=== PATIENT | male | born 1950 | race Caucasian/White ===

== ENCOUNTER 2018-03-12 09:54 | Emergency (ER) | payer OTHER ==
--- OUTSIDE RECORDS SUMMARY | 2018-03-12 09:57 | XMS REPORT | Clinical Summary ---
:1950 Author Organization [facility] Address [address] [place] [address] Care Team Providers Name Role Phone Wilbur Wilson MD Primary Care Provider Allergies No Known Allergies Medications Medication Sig Dispensed Refills Start Date End Date Status aspirin (ECOTRIN) 81 Take 81 mg by 0 Active MG enteric coated mouth daily. tablet dexlansoprazole Take 60 mg by 0 Active (DEXILANT) 60 mg mouth daily. capsule coenzyme [id number] Take by mouth. 0 Active E (CO Q-10, WITH VIT E,) 100-5 mg-unit capsule ezetimibe (ZETIA) 10 Take 10 mg by 0 Active mg tablet mouth daily. flaxseed oil 1,000 mg Take 1,400 mg 0 Active capsule by mouth. calcium Take 1 tablet 0 Active citrate-vitamin D3 by mouth 2 (CITRACAL+D) 315-200 (two) times a mg-unit per tablet day. glucosamine-chondroit Take by mouth. 0 Active -vit C-Mn (GLUCOSAMINE 1500 COMPLEX) 500-400 mg capsule tadalafil (CIALIS) 5 Take 5 mg by 0 Active MG tablet mouth daily as needed for erectile dysfunction. magnesium hydroxide Take by mouth 0 Active 400 mg/5 mL once. suspension cyanocobalamin 1000 Take 1,000 mcg 0 Active MCG tablet by mouth daily. ferrous Take 1 tablet 0 Active fumarate-vitamin C by mouth (TIO-SEQUELS, daily. IRON-VIT C,) 200 mg (65 mg iron)-25 mg tablet extended release ER tablet cholecalciferol, Take 2,000 0 Active vitamin D3, (VITAMIN Units by mouth D3) 2,000 unit daily. capsule capsule rosuvastatin Take 10 mg by 0 Active (CRESTOR) 10 MG mouth. Every tablet other day gabapentin Take 300 mg by 0 Active (NEURONTIN) 100 mg mouth nightly. capsule clopidogrel (PLAVIX) TAKE 1 TABLET 90 tablet 3 10/19/2017 Active 75 mg tablet BY MOUTH EVERY DAY omega-3 acid ethyl Take 1 g by 0 Active esters (LOVAZA) 1 mouth 2 (two) gram capsule times a day. cetirizine (ZyrTEC) 5 Take 2.5 mg by 0 Active MG tablet mouth daily. clopidogrel (PLAVIX) Take 1 tablet 90 tablet 3 10/24/2016 Discontinued 75 mg tablet (75 mg total) 8 by mouth daily. fenofibric acid Take 135 mg by 0 Discontinued (FIBRICOR) 105 mg mouth daily. 8 tablet icosapent ethyl Take by mouth. 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 Hyperlipidemia 01/19/2017 Stented coronary artery 01/19/2017 Chest pain 01/19/2017 Coronary artery disease involving [place] heart with angina pectoris 01/19/2017 Carotid bruit 01/19/2017 Abnormal EKG 01/19/2017 Encounters Date Type Specialty Care Team Description 01/01/2018 Office Visit Cardiology Vitaliy Cristobal MD Coronary artery disease involving [place] coronary artery of [place] heart without angina pectoris (Primary Dx); Pure hypercholesterolemia; Stented coronary artery 10/16/2017 Refill Cardiology Vitaliy Cristobal MD Med Refill 06/29/2017 Office Visit Cardiology Vitaliy Cristobal MD Coronary artery disease involving [place] coronary artery of [place] heart without angina pectoris (Primary Dx); Stented coronary artery after 03/11/2017 Social History Tobacco Use Types Packs/Day Years Used Date Never Smoker Smokeless Tobacco: Never Used Alcohol Use Drinks/Week oz/Week Comments No Sex Assigned at Date Recorded Not on file Job Start Date Occupation Industry Not on file Not on file Not on file Travel History Travel Start Travel End No recent travel history available. Last Filed Vital Signs Vital Sign Reading Time Taken Blood Pressure 125/74 01/01/2018 11:02 AM CDT Pulse 56 01/01/2018 11:02 AM CDT Temperature - - Respiratory Rate - - Oxygen Saturation - - Inhaled Oxygen Concentration - - Weight 83.9 kg (185 lb) 01/01/2018 11:02 AM CDT Height 175.3 cm (5' 9") 01/01/2018 11:02 AM CDT Body Mass Index 27.32 01/01/2018 11:02 AM CDT Plan of Treatment Health Maintenance Due Date Last Done Comments COLON CANCER SCREENING 2001 SHINGRIX VACCINE (1 of 2) 2001 ZOSTER VACCINE 2011 PNEUMOCOCCAL POLYSACCHARIDE VACCINE AGE 65 AND OVER 2016 PNEUMOCOCCAL-13 2016 INFLUENZA VACCINE 11/25/2017 Procedures Procedure Name Priority Date/Time Associated Diagnosis Comments ECG 12-LEAD Routine 01/01/2018 11:04 AM Coronary artery Results for this CDT disease involving procedure are in the [place] coronary results section. artery of [place] heart without angina pectoris ECG 12-LEAD Routine 06/29/2017 4:29 PM Coronary artery Results for this KILN TENDER disease involving procedure are in the [place] coronary results section. artery of [place] heart without angina pectoris after 03/11/2017 Results ECG 12 lead (01/01/2018 11:04 AM CDT)Only the most recent of2 resultswithin the time period is included. Ventricular rate 62 [facility] Atrial rate 62 [facility] ND interval 190 [facility] QRSD interval 146 [facility] QT interval 436 [facility] QTC interval 442 [facility] P axis 1 67 [facility] QRS axis 1 8 [facility] T wave axis 47 [facility] EKG impression Normal sinus rhythm-Possible Left atrial enlargement-Right bundle branch block-Abnormal ECG-In automated comparison with ECG of 2017 16:29,-Left anterior fascicular block is no longer present-Haritha [facility] ctronically Signed By Ainsley Hoffman ([id number]) on 01/01/2018 6:36:53 PM Performing Organization Address City/State/Zipcode Phone Number [facility] [address] [place] [address] after 03/11/2017 Insurance Payer Benefit Plan / Group Subscriber ID Type Phone Address HUMANA MEDICARE HUMANA MEDICARE PPO/PFFS/ERS [facility] xxxxxxxxx PPO ([place]) [place] [id number] Advance Directives Patient has advance care planning documents on file. For more information, please contact:Cuong [id number] [place] [address]
[2018-03-12] MEDS ORDERED: ASPIRIN 81 MG CHEWABLE TABLET ONE (10:22)
[2018-03-12] MEDS ORDERED: NITROGLYCERIN 0.4 MG/TAB SL ONE (10:22)
[2018-03-12 10:27] LABS: Absolute Lymphocytes (CBC) 1.9 K/uL (0.7-4.9); Absolute Monocytes 0.9 K/uL (0.1-1.3); Basophils % 0.1 % (0-1.3); Hematocrit 43.5 % (39.6-49.0); Lymphocytes % 10.5 % (15.3-44.8); MCH 32.7 pg (27.0-35.0); MPV 8.4 fL (7.6-11.3); Monocytes % 4.9 % (3.3-12.3); RBC Red Blood Cell Count 4.63 M/uL (4.33-5.43)
[2018-03-12 10:33] LABS: Protime INR 1.06
[2018-03-12] MEDS ORDERED: MORPHINE 4 MG/ML SYR ONE (10:37)
[2018-03-12] MEDS ORDERED: ONDANSETRON 4 MG/2 ML VIAL ONE (10:37)
[2018-03-12] MEDS ORDERED: CLOPIDOGREL 75 MG TABLET ONE (10:49)
[2018-03-12 10:50] LABS: Albumin 3.6 g/dL (3.4-5.0); Bilirubin Direct 0.2 mg/dL (0-0.2); Bilirubin Total 0.6 mg/dL (0.2-1.0); Potassium 3.9 mmol/L (3.5-5.1); Protein, Total 7.3 g/dL (6.4-8.2); Troponin (Emerg Dept Use Only) 0.02 ng/mL (0.0-0.045)
--- NOTE | 2018-03-12 11:08 | ER ---
Nurse's Notes [facility] Name: Anthony Moya Age: 67 yrs Sex: Male : 1950 Arrival Date: 03/12/2018 Time: 09:56 Bed 4 Private MD: Darius Wilson B Diagnosis: ST elevation (STEMI) myocardial infarction of other sites Presentation: 03/12 10:02 Presenting complaint: Patient states: substernal chest "heaviness" that began 30 ss minutes ago. Pt has a history of cardiac stents x2 and a known third heart blockage. Pt has been off of all his medications x 1 weeks because he had Decadron injections to his spine yesterday. Transition of care: patient was not received from another setting of care. Onset of symptoms was March 12, 2018. Risk Assessment: Do you want to hurt yourself or someone else? Patient reports no desire to harm self or others. Initial Sepsis Screen: Does the patient meet any 2 criteria? No. Patient's initial sepsis screen is negative. Does the patient have a suspected source of infection? No. Patient's initial sepsis screen is negative. Care prior to arrival: None. 10:02 Method Of Arrival: Ambulatory ss 10:02 Acuity: MARC 3 ss 11:18 Acuity: MARC 2 ph Historical: - Allergies: 10:07 No Known Allergies; ss - Home Meds: 10:07 aspirin 81 mg oral TbEC [Active]; clopidogrel 75 mg Oral tab 1 tab once daily [Active]; ss Probiotic [Active]; Dexilant 60 mg oral CpDB 1 cap once daily [Active]; Ubiqunol [Active]; Zetia 10 mg Oral tab 1 tab once daily [Active]; rosuvastatin 10 mg oral tab 1 tab once daily [Active]; Flaxseed oil [Active]; Citracal Oral [Active]; Glucosamine oral oral [Active]; gabapentin oral oral [Active]; - PMHx: 10:07 Hyperlipidemia; Myocardial infarction; ss - PSHx: 10:07 cardiac stents x 2; ss - Immunization history:: Adult Immunizations up to date. - Social history:: Smoking status: Patient/guardian denies using tobacco. - Ebola Screening: : Patient denies exposure to infectious person Patient denies travel to an Ebola-affected area in the 21 days before illness onset. Screenin:10 Abuse screen: Denies threats or abuse. Denies injuries from another. Nutritional sv screening: No deficits noted. Tuberculosis screening: No symptoms or risk factors identified. Fall Risk None identified. Assessment: 10:10 Also complains of shortness of breath. General: Appears distressed, uncomfortable, well sv developed, Behavior is calm, cooperative, appropriate for age. Pain: Complains of pain in anterior aspect of left upper chest and left breast Pain does not radiate. Pain currently is 6 out of 10 on a pain scale. Quality of pain is described as heavy, Pain began 30 min ago. Is continuous, Noted to be moaning. Neuro: Level of Consciousness is awake, alert, obeys commands, Oriented to person, place, time, situation, Moves all extremities. Full function Speech is normal. Cardiovascular: Patient's skin is warm and dry. Rhythm is sinus rhythm. Respiratory: Airway is patent Respiratory effort is even, unlabored, Respiratory pattern is regular, symmetrical. Derm: Skin is normal. 10:48 Reassessment: Patient and/or family updated on plan of care and expected duration. Pain sv level reassessed. Patient is alert, oriented x 3, equal unlabored respirations, skin warm/dry/pink. 10:51 Reassessment: Dr Keating at bedside speaking with pt and family. sv 11:00 General: Appears distressed, uncomfortable, Behavior is cooperative, anxious. sv Respiratory: Respiratory effort is even, unlabored, Respiratory pattern is regular, symmetrical. 11:17 Reassessment: report given to [facility]. ETA 25 minutes. Katrina Sauceda RN remains ss at bedside with patient for medication administration and continuous reevaluation/ assessment. Family remains at bedside as well. VS WNL. 11:22 Reassessment: Patient and/or family updated on plan of care and expected duration. Pain sv level reassessed. Patient is alert, oriented x 3, equal unlabored respirations, skin warm/dry/pink. Pain is worse. Informed Delvis Gómez and Dr Keating. 11:39 Reassessment: Patient appears in no apparent distress at this time. Patient and/or sv family updated on plan of care and expected duration. Pain level reassessed. Patient is alert, oriented x 3, equal unlabored respirations, skin warm/dry/pink. Decreased anxiety noted. Patient states symptoms have improved. 11:39 General: Appears in no apparent distress. comfortable, Behavior is calm, cooperative, sv appropriate for age. Neuro: Level of Consciousness is awake, alert, obeys commands, Oriented to person, place, time, situation, Moves all extremities. Full function. Cardiovascular: Patient's skin is warm and dry. Rhythm is sinus rhythm. Respiratory: Airway is patent Respiratory effort is even, unlabored, Respiratory pattern is regular, symmetrical. 11:49 Reassessment: [facility] at bedside. sv Vital Signs: 10:07 BP 158 / 88; Pulse 75; Resp 18; Pulse Ox 99% on R/A; Weight 83.91 kg; Height 5 ft. 9 ss in. (175.26 cm); Pain 6/10; 10:15 BP 154 / 89; Pulse 73; Resp 18; Pulse Ox 100% on R/A; sv 10:22 BP 128 / 80; Pulse 72; Resp 20; Pulse Ox 97% ; sv 10:22 Pain 7/10; sv 10:30 BP 125 / 79; Pulse 74; Resp 27; Pulse Ox 98% ; sv 10:31 Pain 8/10; sv 10:36 BP 124 / 82; Pulse 68; Resp 29; Pulse Ox 99% ; sv 10:36 Pain 8/10; sv 10:45 Pain 6/10; sv 10:52 BP 104 / 73; Pulse 76; Resp 20; Pulse Ox 98% on 2 lpm NC; sv 11:17 BP 114 / 74; Pulse 68; Resp 20; Pulse Ox 100% on R/A; ss 11:17 Temp 97.5(O); Pain 6/10; ss 11:22 Pain 7/10; sv 11:28 BP 114 / 76; Pulse 76; Resp 24; Pulse Ox 100% on 2 lpm NC; sv 11:34 BP 110 / 73; Pulse 70; Resp 20; Pulse Ox 99% on 2 lpm NC; sv 11:36 Pain 5/10; sv 11:38 BP 115 / 76; Pulse 67 MON; Resp 22; Pulse Ox 99% on 2 lpm NC; Pain 5/10; sv 11:45 BP 120 / 82; Pulse 69; Resp 19; Pulse Ox 100% on 2 lpm NC; sv 10:07 Body Mass Index 27.32 (83.91 kg, 175.26 cm) ss 11:38 Sinus Rhythm sv ED Course: 09:56 Patient arrived in ED. sb2 09:56 Darius Wilson MD is Private Physician. sb2 09:59 Jaci Robert RN is Primary Nurse. ph 10:01 [facility] pm1 10:01 Coretta Keating MD is Attending Physician. pm1 10:03 Triage completed. ss 10:07 Arm band placed on right wrist. ss 10:10 Patient has correct armband on for positive identification. Placed in gown. Bed in low sv position. Side rails up X2. court monitor on. Pulse ox on. NIBP on. Door closed. Head of bed elevated. 10:10 Initial lab(s) drawn, by me, sent to lab. Inserted saline lock: 18 gauge in left sv antecubital area, using aseptic technique. Blood collected. Flushed left antecubital with 5 ml normal saline. 10:18 Primary Nurse role handed off by Jaci Robert RN sv 10:18 Katrina Sauceda RN is Primary Nurse. sv 10:24 EKG done, by drain technician. reviewed by Delvis Palacio NP. at1 10:42 EKG done, by drain technician. reviewed by Delvis Palacio NP. vh 10:48 called the graphic production artist cardiology number at [phone] and faxed over ekgs to the office/ eb connected Dr. Martines with ED doc for patient consultation. 10:48 Oxygen administration via nasal cannula \\T\\ 2L/min. sv 10:51 initiated a transfer with Kasey at the [facility]. eb 10:58 per Kasey at the [facility] patient has been declined due to them being eb at capacity. 10:58 initiated at Transfer with Trinidad at the [facility]. eb 11:[address] Bolivar the STEMI respiratory therapy instructor graphic production artist from [facility] with for eb patient transfer. 11:02 Inserted saline lock: 18 gauge in right antecubital area, using aseptic technique. sv Flushed right antecubital with 5 ml normal saline. 11:05 administrative approval given by Trinidad [place] from [facility] / pt going to the eb [facility]n [facility]/ Dr. Bolivar has accepted the patient in transfer. 11:09 called the [facility] spoke with PRAKASH he will call back with an ETA. eb 11:16 TNK done by Gypsy OTT. Dr Keating explained the risks and benefits. sv 11:20 X-ray completed. Portable x-ray completed in exam room. Patient tolerated procedure ls3 well. 11:21 XRAY Chest (1 view) In Process Unspecified. EDMS 11:35 IV is patent, is intact, with fluids infusing freely. sv 11:36 EKG done, by drain technician. reviewed by Delvis Palacio NP. tc 11:41 transfer transportation to receiving facility. sv 11:56 No provider procedures requiring assistance completed. Patient transferred, IV remains sv in place. intact. Administered Medications: 10:16 Drug: Aspirin Chewable Tablet 324 mg Route: PO; sv 10:32 Follow up: Response: No adverse reaction sv 10:17 Drug: Nitroglycerin 0.4 mg Route: Sublingual; sv 10:31 Drug: Nitroglycerin 0.4 mg Route: Sublingual; sv 10:45 Drug: Nitroglycerin 0.4 mg Route: Sublingual; sv 11:37 Follow up: Response: No adverse reaction sv 10:45 Drug: PlaVIX 300 mg Route: PO; sv 11:35 Follow up: Response: No adverse reaction sv 11:19 Drug: Tenecteplase 45 mg {Co-Signature: sami (Gypsy Jorge RN).} Route: IV; Rate: sv calculated rate; Site: left antecubital; 11:36 Follow up: Response: No adverse reaction; IV Status: Completed infusion; IV Intake: 9ml sv 11:20 Drug: Heparin (IN-Bolus with thrombolytic) - HEParin 60 units/kg {Co-Signature: ss sv (Gypsy Jorge RN).} Route: IVP; Site: left antecubital; 11:58 Follow up: Response: No adverse reaction sv 11:20 Drug: Heparin (IN Drip) 12 units/kg/hr - (HEParin 86364 units, D5W 500 ml) sv {Co-Signature: ss (Gypsy oJrge RN).} Route: IV; Rate: calculated rate; Site: left antecubital; 11:58 Follow up: Response: No adverse reaction; IV Status: Infusion continued upon transfer sv 11:27 Drug: Zofran 4 mg Route: IVP; Site: right antecubital; sv 11:36 Follow up: Response: No adverse reaction sv 11:29 Drug: morphine 4 mg Route: IVP; Site: right antecubital; sv 11:36 Follow up: Pain 5/10 Adult; Response: No adverse reaction; Pain is decreased sv Intake: 11:36 IV: 9ml; Total: 9ml. sv Outcome: 11:08 ER care complete, transfer ordered by MD. pm1 11:56 [facility]red by helicopter [facility], Transfer form completed. sv X-rays sent w/ patient. Note: Report given to [facility]. 11:56 Condition: stable 11:56 Instructed on the need for transfer. 12:02 Patient left the ED. sv Signatures: Dispatcher [employer] Katrina Bull RN RN sv Gypsy Jorge RN RN ss Genesis De La Rosa, computer trainer EKG Tat1 Heydi Narvaez, computer trainer EKG Ttc Noa Tijerina Jaci Robert RN RN ph Delvis Palacio, GENERAL PRACTITIONER GENERAL PRACTITIONER pm1 Juliette Mccrary sb2 Karla Roldan Lynzie ls3 Gypsy Jorge RN ss Corrections: (The following items were deleted from the chart) 10:47 10:31 Pain /10; sv sv 11:35 10:51 Reassessment: Dr Keating at bedside [facility] pt and family. sv sv
--- NOTE | 2018-03-12 11:09 | EDPHYS ---
Physician Documentation [facility] Name: Anthony Moya Age: 67 yrs Sex: Male : 1950 Arrival Date: 03/12/2018 Time: 09:56 Bed 4 Private MD: Darius Wilson B ED Physician Coretta Keating HPI: 03/12 10:15 This 67 yrs old Male presents to ER via Ambulatory with complaints of Chest pm1 Pain > 30 y/o. 10:15 The patient or guardian reports chest pain that is located primarily in the mid-sternal pm1 area. Onset: 30 minutes prior to arrival. The pain does not radiate. Associated signs and symptoms: Pertinent positives: shortness of breath, Pertinent negatives: abdominal pain, cough, diaphoresis, dizziness, headache, nausea, near syncope, palpitations, vomiting. The chest pain is described as aching. Duration: The patient or guardian reports a single episode, that is still ongoing. Modifying factors: The symptoms are alleviated by nothing. the symptoms are aggravated by nothing. Severity of pain: in the emergency department the pain is a 7 / 10. The patient has experienced a previous episode, [place] in 2015. Stents x 2 and 40% occlusion in another vessel. Patient with steroid injections to cervical spine recently and was instructed to hold his Aspirin and Plavix for 1 week. Historical: - Allergies: 10:07 No Known Allergies; ss - Home Meds: 10:07 aspirin 81 mg oral TbEC [Active]; clopidogrel 75 mg Oral tab 1 tab once daily [Active]; ss Probiotic [Active]; Dexilant 60 mg oral CpDB 1 cap once daily [Active]; Ubiqunol [Active]; Zetia 10 mg Oral tab 1 tab once daily [Active]; rosuvastatin 10 mg oral tab 1 tab once daily [Active]; Flaxseed oil [Active]; Citracal Oral [Active]; Glucosamine oral oral [Active]; gabapentin oral oral [Active]; - PMHx: 10:07 Hyperlipidemia; Myocardial infarction; ss - PSHx: 10:07 cardiac stents x 2; ss - Immunization history:: Adult Immunizations up to date. - Social history:: Smoking status: Patient/guardian denies using tobacco. - Ebola Screening: : Patient denies exposure to infectious person Patient denies travel to an Ebola-affected area in the 21 days before illness onset. ROS: 10:15 Constitutional: Negative for fever, chills, and weight loss, Eyes: Negative for injury, pm1 pain, redness, and discharge, ENT: Negative for injury, pain, and discharge, Neck: Negative for injury, pain, and swelling. 10:15 Respiratory: Negative for shortness of breath, cough, wheezing, and pleuritic chest pain, Abdomen/GI: Negative for abdominal pain, nausea, vomiting, diarrhea, and constipation, Back: Negative for injury and pain, : Negative for injury, bleeding, discharge, and swelling, MS/Extremity: Negative for injury and deformity, Skin: Negative for injury, rash, and discoloration, Neuro: Negative for headache, weakness, numbness, tingling, and seizure. 10:15 Cardiovascular: Positive for chest pain, Negative for edema, palpitations. Exam: 10:15 Constitutional: This is a well developed, well nourished patient who is awake, alert, pm1 and in no acute distress. Head/Face: Normocephalic, atraumatic. Eyes: Pupils equal round and reactive to light, extra-ocular motions intact. Lids and lashes normal. Conjunctiva and sclera are non-icteric and not injected. Cornea within normal limits. Periorbital areas with no swelling, redness, or edema. ENT: Nares patent. No nasal discharge, no septal abnormalities noted. Tympanic membranes are normal and external auditory canals are clear. Oropharynx with no redness, swelling, or masses, exudates, or evidence of obstruction, uvula midline. Mucous membranes moist. Neck: Trachea midline, no thyromegaly or masses palpated, and no cervical lymphadenopathy. Supple, full range of motion without nuchal rigidity, or vertebral point tenderness. No Meningismus. Chest/axilla: Normal chest wall appearance and motion. Nontender with no deformity. No lesions are appreciated. Cardiovascular: Regular rate and rhythm with a normal S1 and S2. No gallops, murmurs, or rubs. Normal PMI, no JVD. No pulse deficits. Respiratory: Lungs have equal breath sounds bilaterally, clear to auscultation and percussion. No rales, rhonchi or wheezes noted. No increased work of breathing, no retractions or nasal flaring. Abdomen/GI: Soft, non-tender, with normal bowel sounds. No distension or tympany. No guarding or rebound. No evidence of tenderness throughout. Back: No spinal tenderness. No costovertebral tenderness. Full range of motion. Skin: Warm, dry with normal turgor. Normal color with no rashes, no lesions, and no evidence of cellulitis. MS/ Extremity: Pulses equal, no cyanosis. Neurovascular intact. Full, normal range of motion. 10:15 Neuro: Orientation: is normal, Motor: is normal, moves all fours. Vital Signs: 10:07 BP 158 / 88; Pulse 75; Resp 18; Pulse Ox 99% on R/A; Weight 83.91 kg; Height 5 ft. 9 ss in. (175.26 cm); Pain 6/10; 10:15 BP 154 / 89; Pulse 73; Resp 18; Pulse Ox 100% on R/A; sv 10:22 BP 128 / 80; Pulse 72; Resp 20; Pulse Ox 97% ; sv 10:22 Pain 7/10; sv 10:30 BP 125 / 79; Pulse 74; Resp 27; Pulse Ox 98% ; sv 10:31 Pain 8/10; sv 10:36 BP 124 / 82; Pulse 68; Resp 29; Pulse Ox 99% ; sv 10:36 Pain 8/10; sv 10:45 Pain 6/10; sv 10:52 BP 104 / 73; Pulse 76; Resp 20; Pulse Ox 98% on 2 lpm NC; sv 11:17 BP 114 / 74; Pulse 68; Resp 20; Pulse Ox 100% on R/A; ss 11:17 Temp 97.5(O); Pain 6/10; ss 11:22 Pain 7/10; sv 11:28 BP 114 / 76; Pulse 76; Resp 24; Pulse Ox 100% on 2 lpm NC; sv 11:34 BP 110 / 73; Pulse 70; Resp 20; Pulse Ox 99% on 2 lpm NC; sv 11:36 Pain 5/10; sv 11:38 BP 115 / 76; Pulse 67 MON; Resp 22; Pulse Ox 99% on 2 lpm NC; Pain 5/10; sv 11:45 BP 120 / 82; Pulse 69; Resp 19; Pulse Ox 100% on 2 lpm NC; sv 10:07 Body Mass Index 27.32 (83.91 kg, 175.26 cm) ss 11:38 Sinus Rhythm sv MDM: 10:01 Patient medically screened. pm1 10:15 Physician consultation: Lobito Martines MD was contacted at 10:15, regarding consult, pm1 patient's condition, Reviewed prior and current ECG with Dr. Martines in the ER. His impression is new onset Right Bundle Branch block.. 10:48 Data reviewed: vital signs. Data interpreted: Pulse oximetry: on room air is 99 %. pm1 Interpretation: normal. 03/12 10:06 Order name: Basic Metabolic Panel; Complete Time: 10:56 pm1 03/12 10:06 Order name: CBC with Diff; Complete Time: 10:31 pm1 03/12 10:06 Order name: LFT's; Complete Time: 10:56 pm1 03/12 10:06 Order name: Magnesium; Complete Time: 10:56 pm1 03/12 10:06 Order name: NT PRO-BNP; Complete Time: 10:56 pm1 03/12 10:06 Order name: PT-INR; Complete Time: 10:56 pm1 03/12 10:06 Order name: Troponin (emerg Dept Use Only); Complete Time: 10:56 pm1 03/12 10:06 Order name: XRAY Chest (1 view); Complete Time: 11:40 pm1 03/12 10:06 Order name: EKG; Complete Time: 10:07 pm1 03/12 10:06 Order name: Cardiac monitoring; Complete Time: 10:18 pm1 03/12 10:06 Order name: EKG - Nurse/Tech; Complete Time: 10:18 pm1 03/12 10:06 Order name: IV Saline Lock; Complete Time: 10:18 pm1 03/12 10:06 Order name: Labs collected and sent; Complete Time: 10:18 pm1 03/12 10:06 Order name: O2 Per Protocol; Complete Time: 10:18 pm1 03/12 10:06 Order name: O2 Sat Monitoring; Complete Time: 10:18 pm1 03/12 10:32 Order name: EKG - Nurse/Tech; Complete Time: 10:45 ma2 03/12 10:33 Order name: EKG; Complete Time: 10:34 sv 03/12 10:36 Order name: Oxygen; Complete Time: 10:46 ma2 Administered Medications: 10:16 Drug: Aspirin Chewable Tablet 324 mg Route: PO; sv 10:32 Follow up: Response: No adverse reaction sv 10:17 Drug: Nitroglycerin 0.4 mg Route: Sublingual; sv 10:31 Drug: Nitroglycerin 0.4 mg Route: Sublingual; sv 10:45 Drug: Nitroglycerin 0.4 mg Route: Sublingual; sv 11:37 Follow up: Response: No adverse reaction sv 10:45 Drug: PlaVIX 300 mg Route: PO; sv 11:35 Follow up: Response: No adverse reaction sv 11:19 Drug: Tenecteplase 45 mg {Co-Signature: ss (Gypsy Jorge RN).} Route: IV; Rate: sv calculated rate; Site: left antecubital; 11:36 Follow up: Response: No adverse reaction; IV Status: Completed infusion; IV Intake: 9ml sv 11:20 Drug: Heparin (TN-Bolus with thrombolytic) - HEParin 60 units/kg {Co-Signature: ss sv (Gypsy Jorge RN).} Route: IVP; Site: left antecubital; 11:58 Follow up: Response: No adverse reaction sv 11:20 Drug: Heparin (TN Drip) 12 units/kg/hr - (HEParin 42254 units, D5W 500 ml) sv {Co-Signature: ss (Gypsy Jorge RN).} Route: IV; Rate: calculated rate; Site: left antecubital; 11:58 Follow up: Response: No adverse reaction; IV Status: Infusion continued upon transfer sv 11:27 Drug: Zofran 4 mg Route: IVP; Site: right antecubital; sv 11:36 Follow up: Response: No adverse reaction sv 11:29 Drug: morphine 4 mg Route: IVP; Site: right antecubital; sv 11:36 Follow up: Pain 5/10 Adult; Response: No adverse reaction; Pain is decreased sv Disposition: 10:42 I saw Mr. Cruz called STEMI at 1040 am, has hx of prior TN last cath was done 2014 ma2 with stent placed by dr. ojeda, been off Plavix x 2 days. Here with severe chest pain EKG with STEMI w RBBB... ASA and plavix given. . 10:[address] Martines, patient want to be transferred to [facility] for nm2 continuity of care. risk of transferred discussed, will fly him. flight eta within 20 min, he will arrive at accepting facility within 60 min, will hold off tpa as risk weigh benefit. . Chart complete. 11:[address] bolivar at [facility], transfer d/t patient wishes.. dr. bolivar ma2 recommends tpa, heparine and plavix . Disposition: 03/12/18 11:08 Transfer ordered to [facility]. Diagnosis is ST elevation (STEMI) myocardial infarction of other sites. - Reason for transfer: Higher level of care. - Accepting physician is [facility] - Dr. Bolivar. - Condition is Stable. - Problem is new. - Symptoms have improved. Signatures: Dispatcher [employer] Katrina Bull RN RN sv Smirch, Shelby, RN RN ss Delvis Palacio, ANDRE SUPERVISOR GENERAL pm1 Coretta Keating MD MD ma2 Gypsy Jorge RN ss Corrections: (The following items were deleted from the chart) 12:02 11:08 03/12/2018 11:08 Transfer ordered to [facility]. Diagnosis is sv ST elevation (STEMI) myocardial infarction of other sites. Reason for transfer: Higher level of care. Accepting physician is [facility] - Dr. Bolivar. Condition is Stable. Problem is new. Symptoms have improved. pm1
[2018-03-12] MEDS ORDERED: HEPARIN 5000 UNIT/ML 1 ML VIAL ONE (11:19)
[2018-03-12] MEDS ORDERED: TENECTEPLASE 50 MG/10 ML VIAL IV ONE (11:19)
[2018-03-12] MEDS ORDERED: HEPARIN/D5W 25,000 UNIT/500 ML BAG IV ONE (11:19)
--- NOTE | 2018-03-12 11:30 | RAD REPORT ---
EXAM DESCRIPTION: RAD - Chest Single View - 03/12/2018 11:21 am CLINICAL HISTORY: CHEST PAIN Chest pain. COMPARISON: Chest Pa And Lat (2 Views) dated 08/26/2016; ABDOMEN 1 VIEW KUB dated 08/01/2014; CHEST SING LE VIEW dated 05/13/2014; CHEST SINGLE VIEW dated 05/12/2014 FINDINGS: Portable technique limits examination quality. The lungs are grossly clear. The heart is normal in size. No displaced fractures. IMPRESSION: No acute intrathoracic process suspected.
[2018-03-12 12:25] VITALS: TEMP 97.5
[2018-03-12 12:31] VITALS: BP 120/82; O2SAT 100
--- NOTE | 2018-03-12 12:57 | EKG ---
Test Date: 2018-03-12 Test Time: 10:38:46 Septic Cleaner: ALESSANDRO MEASUREMENT RESULTS: Intervals: Rate: 75 WI: 158 QRSD: 150 QT: 428 QTc: 477 [place]: P: 9 WI: 158 QRS: -2 T: 36 INTERPRETIVE STATEMENTS: Normal sinus rhythm Right bundle branch block Abnormal ECG Compared to ECG 03/12/2018 10:15:04 No significant changes Electronically Signed On 03-12-18 12:57:29 GIN OPERATOR by Lobito Martines
--- NOTE | 2018-03-12 12:58 | EKG ---
Test Date: 2018-03-12 Test Time: 10:15:04 Tube Roller: DEBBI MEASUREMENT RESULTS: Intervals: Rate: 75 MD: 158 QRSD: 156 QT: 434 QTc: 484 Roll: P: 20 MD: 158 QRS: 18 T: 39 INTERPRETIVE STATEMENTS: Normal sinus rhythm Right bundle branch block Abnormal ECG Compared to ECG 05/13/2014 07:08:47 Right bundle-branch block now present T-wave abnormality no longer present Possible ischemia no longer present Electronically Signed On 03-12-18 12:57:37 SENIOR VICE PRESIDENT AND CHIEF INFORMATION OFFICER by Lobito Martines
--- NOTE | 2018-03-13 08:04 | EKG ---
Test Date: 2018-03-12 Test Time: 11:26:30 Correctional Counselor/Case Manager: ALESSANDRO MEASUREMENT RESULTS: Intervals: Rate: 69 VA: 170 QRSD: 152 QT: 424 QTc: 454 [place]: P: 12 VA: 170 QRS: -8 T: 26 INTERPRETIVE STATEMENTS: Normal sinus rhythm Right bundle branch block Abnormal ECG Compared to ECG 03/12/2018 10:38:46 No significant changes Electronically Signed On 03-13-18 08:03:44 QUALITY CONTROL ENGINEERING TECHNICIAN by Lobito Martines
== END 2018-03-12 12:02 | disposition short-term general hospital (02) ==
LOC: ER 09:54
DX: I21.29 ST elevation (STEMI) myocardial infarction involving other sites (principal); E78.5 Hyperlipidemia, unspecified; I25.2 Old myocardial infarction; Z79.82 Long term (current) use of aspirin; Z95.818 Presence of other cardiac implants and grafts
CPT/HCPCS: 36415; 71045; 80048; 80076; 83735; 83880; 84484; 85025; 85610; 92977; 93005 ×3; 99285; J1644; J2405; J3101

== ENCOUNTER 2018-04-19 18:21 | Emergency (ER) | payer OTHER ==
--- OUTSIDE RECORDS SUMMARY | 2018-04-19 18:23 | XMS REPORT | Clinical Summary ---
:1950 Author Organization [facility] Address [address] [place] [address] Care Team Providers Name Role Phone Wilbur Wilson MD Primary Care Provider Allergies No Known Allergies Medications Medication Sig Dispensed Refills Start Date End Date Status aspirin (ECOTRIN) 81 Take 81 mg by 0 Active MG enteric coated mouth daily. tablet dexlansoprazole Take 60 mg by 0 Active (DEXILANT) 60 mg mouth daily. capsule coenzyme [id number] Take by mouth. 0 Active E (CO [...] iron)-25 mg tablet extended release ER tablet rosuvastatin Take 10 mg by 0 Active [...] by 0 Active MG tablet mouth daily. sildenafil (VIAGRA) Take 25 mg by 0 Active 25 MG tablet mouth daily as needed for erectile dysfunction. clopidogrel (PLAVIX) Take 1 tablet 90 tablet 3 10/24/2016 Discontinued 75 mg tablet (75 mg total) 8 by mouth daily. fenofibric acid Take 135 mg by 0 Discontinued (FIBRICOR) 105 mg mouth daily. 8 tablet icosapent ethyl Take by mouth. 0 Discontinued (VASCEPA) 1 gram 8 capsule cholecalciferol, Take 2,000 0 Discontinued vitamin D3, (VITAMIN Units by mouth 8 D3) 2,000 unit daily. 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 Hyperlipidemia 01/19/2017 Stented coronary artery 01/19/2017 Chest pain 01/19/2017 Coronary artery disease involving [place] heart with angina pectoris 01/19/2017 Carotid bruit 01/19/2017 Abnormal EKG 01/19/2017 Encounters Date Type Specialty Care Team Description 03/26/2018 Office Visit Cardiology Vitaliy Cristobal MD Coronary artery disease involving [place] coronary artery of [place] heart without angina pectoris (Primary Dx); Stented coronary artery; ST elevation myocardial infarction involving left circumflex coronary artery (HCC) 03/12/2018 Intake Access N/A 01/01/2018 Office Visit Cardiology Vitaliy Cristobal MD Coronary artery disease involving [place] coronary artery of [place] heart without angina pectoris (Primary Dx); Pure hypercholesterolemia; Stented coronary artery 10/16/2017 Refill Cardiology Vitaliy Cristobal MD Med Refill 06/29/2017 Office Visit Cardiology Vitaliy Cristobal MD Coronary artery disease involving [place] coronary artery of [place] heart without angina pectoris (Primary Dx); Stented coronary artery after 04/18/2017 Social History Tobacco Use Types Packs/Day Years [...] Vital Sign Reading Time Taken Blood Pressure 128/78 03/26/2018 11:40 AM ASPHALT PAVING SUPERVISOR Pulse 74 03/26/2018 11:40 AM ASPHALT PAVING SUPERVISOR Temperature 37 C (98.6 F) 03/26/2018 11:40 AM ASPHALT PAVING SUPERVISOR Respiratory Rate 18 03/26/2018 11:40 AM ASPHALT PAVING SUPERVISOR Oxygen Saturation 97% 03/26/2018 11:40 AM ASPHALT PAVING SUPERVISOR Inhaled Oxygen Concentration - - Weight 84.7 kg (186 lb 12 oz) 03/26/2018 11:40 AM ASPHALT PAVING SUPERVISOR Height 175.3 cm (5' 9") 03/26/2018 11:40 AM ASPHALT PAVING SUPERVISOR Body Mass Index 27.58 03/26/2018 11:40 AM ASPHALT PAVING SUPERVISOR Plan of Treatment Date Type Specialty Care Team Description 06/23/2018 Appointment Procedural Cardiology Vitaliy Cristobal MD [address] [id number] 06/29/2018 Office Visit Cardiology Vitaliy Cristobal MD [address] [phone] Health Maintenance Due Date Last Done Comments COLON CANCER SCREENING 2001 SHINGLES VACCINES (1 of 2) 2001 PNEUMOCOCCAL POLYSACCHARIDE VACCINE AGE 65 AND OVER 2016 PNEUMOCOCCAL-13 2016 INFLUENZA VACCINE 11/25/2017 Procedures Procedure Name Priority Date/Time Associated Diagnosis Comments ECG 12-LEAD Routine 01/01/2018 11:04 AM Coronary artery Results for this CDT disease involving procedure are in the [place] coronary results section. artery of [place] heart without angina pectoris ECG 12-LEAD Routine 06/29/2017 4:29 PM Coronary artery Results for this ASPHALT PAVING SUPERVISOR disease involving procedure are in the [place] coronary results section. artery of [place] heart without angina pectoris after 04/18/2017 Results ECG 12 lead (01/01/2018 11:04 AM CDT)Only the most recent of2 resultswithin the time period is included. Ventricular rate 62 [facility] Atrial rate 62 [facility] TN interval 190 [facility] QRSD interval 146 [facility] QT interval 436 [facility] QTC interval 442 [facility] P axis 1 67 [facility] QRS axis 1 8 [facility] T wave axis 47 [facility] EKG impression Normal sinus rhythm-Possible Left atrial enlargement-Right bundle branch block-Abnormal ECG-In automated comparison with ECG of 2017 16:29,-Left anterior fascicular block is no longer present-Haritha [facility] M[facility] ctronically Signed By Ainsley Hoffman ([id number]) on 01/01/2018 6:36:53 PM Performing Organization Address City/State/Zipcode Phone Number [facility] [address] [place] [address] after 04/18/2017 Insurance Payer Benefit Plan / Group Subscriber ID Type Phone Address [employer] MEDICARE [employer] MEDICARE PPO/PFFS/ERS [facility] xxxxxxxxx PPO ([place]) [place] [address] Advance Directives Patient has advance care planning documents on file. For more information, please contact:Cuong Gallego[address] [place] [address]
--- OUTSIDE RECORDS SUMMARY | 2018-04-19 18:23 | XMS REPORT | Clinical Summary ---
:1950 Author Organization [facility] Address [address] [place] [address] Care Team Providers Name Role Phone Darius Wilson MD Primary Care Provider Allergies No Known Allergies Medications Medication Sig Dispensed Refills Start End Date Status Date lactobacillus Take by mouth. 0 Active combination no.8 (ADULT PROBIOTIC ORAL) aspirin 81 MG EC Take 81 mg by 0 Active tablet mouth daily. dexlansoprazole 60 Take 60 mg by 0 Active mg capsule mouth daily. coenzyme Q10 100 mg Take 100 mg by 0 Active capsule mouth daily. flaxseed oil Oil 1,400 mg by 0 Active Miscellaneous route. calcium Take 1 tablet by 0 Active citrate-vitamin D mouth 2 (two) (CITRACAL+D) 315-200 times daily. mg-unit per tablet omega-3 acid ethyl Take 2 g by mouth 0 Active esters (LOVAZA) 1 2 (two) times gram capsule daily. gabapentin Take 300 mg by 0 Active (NEURONTIN) 300 MG mouth nightly. capsule magnesium oxide Take 400 mg by 0 Active (MAG-OX) 400 mg mouth daily. (241.3 mg magnesium) tablet ferrous sulfate Take 65 mg by 0 Active (IRON ORAL) mouth every evening. glucosamine-chondroi Take 3 tablets by 0 Active tin 500-400 mg mouth daily. tablet atorvastatin Take 1 tablet (80 90 tablet 0 03/15/20 Active (LIPITOR) 80 MG mg total) by 8 19 tablet mouth daily. metoprolol Take 0.5 tablets 90 tablet 0 03/15/20 Active (LOPRESSOR) 25 MG (12.5 mg total) 8 19 tablet by mouth 2 (two) times daily. clopidogrel (PLAVIX) Take 1 tablet (75 90 tablet 0 Active 75 mg tablet mg total) by 8 mouth daily. clopidogrel (PLAVIX) Take 75 mg by 0 03/15/20 Discontinued 75 mg tablet mouth daily. 18 ezetimibe (ZETIA) 10 Take 10 mg by 0 03/15/20 Discontinued mg tablet mouth daily. 18 rosuvastatin Take 10 mg by 0 03/15/20 Discontinued (CRESTOR) 10 MG mouth daily. 18 tablet Active Problems Problem Noted Date NSVT (nonsustained ventricular tachycardia) 03/14/2018 Hyperlipidemia 03/14/2018 CAD (coronary artery disease) 03/14/2018 STEMI (ST elevation myocardial infarction) 03/12/2018 Epidural hematoma 03/12/2018 Encounters Date Type Specialty Care Team Description 03/12/2018 - Hospital Encounter Cardiology Hernán Bolivar STEMI involving left circumflex coronary artery (HCC) (Primary Dx); 03/15/2018 MD Marni Epidural hematoma (HCC) Yelena Mae MD Bandeali, Salman Jamaluddin, MD 03/12/2018 Surgery Dahlia Farley CATH & PCI MD Jay 03/12/2018 Orders Only General Internal Medicine after 04/18/2017 Social History Tobacco Use Types Packs/Day Years Used Date Never Smoker Smokeless Tobacco: Never Used Alcohol Use Drinks/Week oz/Week Comments No Alcohol Habits Answer Date Recorded How often do you have a drink containing alcohol? Never 03/12/2018 How many drinks containing alcohol do you have on a typical Not asked day when you are drinking? How often do you have six or more drinks on one occasion? Not asked Sex Assigned at Date Recorded Not on file Job Start Date Occupation Industry Not on file Not on file Not on file Travel History Travel Start Travel End No recent travel history available. Last Filed Vital Signs Vital Sign Reading Time Taken Blood Pressure 111/67 03/15/2018 11:28 AM [employer]IC[employer] Pulse 63 03/15/2018 11:28 AM [employer]ICER Temperature 36.7 C (98.1 F) 03/15/2018 11:28 AM [employer]ICER Respiratory Rate 18 03/15/2018 11:28 AM [employer]ICER Oxygen Saturation 95% 03/15/2018 11:28 AM [employer] OFFICER Inhaled Oxygen Concentration - - Weight 83.6 kg (184 lb 4.8 oz) 03/15/2018 4:45 AM [employer]IE[employer]ICER Height 175.3 cm (5' 9") 03/12/2018 12:00 PM [employer]ICER Body Mass Index 27.22 03/15/2018 4:45 AM CHIEF [employer]OURCES OFFICER Plan of Treatment Not on file Implants Implanted Type Area Wild Life Manager Device Shelf Model / Identifier Expiration Serial / Date Lot Device Clsr Angio-Seal Vip 6fr [id number] - [id number] Cardiovascular ST DENIZ [id number] 12/25/2018 [id number] / Implanted: Qty: 1 on 03/12/2018 by Dahlia Farley MD MED: CARDIAC / SURG [id number] [employer] N/A: [place] 10/05/2019 [id number] / Implanted: Qty: 1 on 03/12/2018 by Dahlia Farley MD Heart SCIENTIFIC / [id number] Procedures Procedure Name Priority Date/Time Associated Comments Diagnosis REPORT OF PROCEDURE - 03/16/2018 2:20 ENDOSCOPY SCAN PM [employer]ER CARDIAC CATH REPORT - 03/16/2018 2:20 SCAN PM [employer]ICER ECHOCARDIOGRAM REPORT - 03/15/2018 9:50 SCAN AM [employer]ER ECG 12-LEAD Routine 03/15/2018 5:31 Results for this AM [employer] procedure are in the results section. CBC (HEMOGRAM ONLY) Routine 03/15/2018 4:59 Results for this AM [employer] procedure are in the results section. BASIC METABOLIC PANEL Routine 03/15/2018 4:59 Results for this (7) AM [employer] procedure are in the results section. 2D ECHO W/ DOPPLER ADAMA 03/14/2018 2:08 Results for this (CW/PW/COLOR) PM [employer] procedure are in the results section. MR SPINE CERVICAL ADAMA 03/14/2018 11:48 Results for this WITHOUT IV CONTRAST AM [employer] procedure are in the results section. CBC (HEMOGRAM ONLY) Routine 03/14/2018 4:24 Results for this AM [employer] procedure are in the results section. BASIC METABOLIC PANEL Routine 03/14/2018 4:24 Results for this (7) AM [employer] procedure are in the results section. US EXTREMITY STAT 03/13/2018 6:28 Results for this NON-VASCULAR LIMITED AM [employer] procedure are in LEFT the results section. CBC W/PLT COUNT & AUTO Routine 03/13/2018 4:16 Results for this DIFFERENTIAL AM [employer] procedure are in the results section. CBC W/PLT COUNT & AUTO Routine 03/13/2018 4:16 Results for this DIFFERENTIAL AM [employer] procedure are in the results section. BASIC METABOLIC PANEL Routine 03/13/2018 4:16 Results for this (7) AM [employer] procedure are in the results section. CBC W/PLT COUNT & AUTO Routine 03/13/2018 12:39 Results for this DIFFERENTIAL AM [employer] procedure are in the results section. TROPONIN I Routine 03/13/2018 12:39 Results for this AM [employer] procedure are in the results section. CBC W/PLT COUNT & AUTO Routine 03/13/2018 12:39 Results for this DIFFERENTIAL AM [employer] procedure are in the results section. LIPID PANEL Routine 03/13/2018 12:39 Results for this AM [employer] procedure are in the results section. MR SPINE CERVICAL STAT 03/12/2018 6:27 Results for this WITHOUT IV CONTRAST PM [employer] procedure are in the results section. CBC W/PLT COUNT & AUTO Routine 03/12/2018 3:31 Results for this DIFFERENTIAL PM [employer] procedure are in the results section. CBC W/PLT COUNT & AUTO Routine 03/12/2018 3:31 Results for this DIFFERENTIAL PM [employer] procedure are in the results section. B-TYPE NATRIURETIC Routine 03/12/2018 3:31 Results for this FACTOR (BNP) PM [employer] procedure are in the results section. TROPONIN I Routine 03/12/2018 3:31 Results for this PM [employer] procedure are in the results section. ECG 12-LEAD Routine 03/12/2018 3:13 PM [employer]ICER Procedure Note - Interface, External Ris In - 03/12/2018 3:18 PM [employer]ICER Ventricular Rate 69 BPM Atrial Rate 69 BPM P-R Interval 164 ms QRS Duration 158 ms Q-T Interval 434 ms QTC Calculation(Bazett) 465 ms P Wilsey 53 degrees R Wilsey 27 degrees T Wilsey 11 degrees Normal sinus rhythm Right bundle branch block Abnormal ECG ECG 12-LEAD STAT 03/12/2018 3:13 PM Results for this [employer] procedure are in the results section. POCT-ACT Routine 03/12/2018 1:52 PM Results for this [employer] procedure are in the results section. POCT-ACT Routine 03/12/2018 1:16 PM Results for this [employer] procedure are in the results section. POCT-ACT Routine 03/12/2018 1:02 PM Results for this [employer] procedure are in the results section. L CATH & PCI 03/12/2018 11:04 AM Chest pain, [employer]ICER unspecified type after 04/18/2017 Results EKG-SCANNED (03/16/2018 2:20 PM CHIEF [employer] OFFICER) Narrative Performed At CARDIAC CATH REPORT - SCAN (03/16/2018 2:20 PM CHIEF [employer] OFFICER) Narrative Performed At ECHOCARDIOGRAM REPORT - SCAN (03/15/2018 9:50 AM [employer] OFFICER) Narrative Performed At ECG 12 lead (03/15/2018 5:31 AM [employer] OFFICER)Only the most recent of2 resultswithin the time period is included. Narrative Performed At Ventricular Rate 62 BPM GE MUSE Atrial Rate 62 BPM P-R Interval 192 ms QRS Duration 146 ms Q-T Interval 428 ms QTC Calculation(Bazett) 434 ms P Wilsey 52 degrees R Wilsey 20 degrees T Wilsey 23 degrees Normal sinus rhythm Right bundle branch block Abnormal ECG When compared with ECG of 12-MAR-2018 15:13, QT has shortened Confirmed by MD SHEREEN, BUSHRA ([id number]) on 03/22/2018 5:55:25 AM Procedure Note Interface, External Ris In - 03/22/2018 5:55 AM [employer]ICER Ventricular Rate 62 BPM Atrial Rate 62 BPM P-R Interval 192 ms QRS Duration 146 ms Q-T Interval 428 ms QTC Calculation(Bazett) 434 ms P Wilsey 52 degrees R Wilsey 20 degrees T Wilsey 23 degrees Normal sinus rhythm Right bundle branch block Abnormal ECG When compared with ECG of 12-MAR-2018 15:13, QT has shortened Confirmed by MD SHEREEN, BUSHRA ([id number]) on 03/22/2018 5:55:25 AM Performing Organization Address City/State/Zipcode Phone Number [facility] CBC (Hemogram only) (03/15/2018 4:59 AM CHIE[employer] OFFICER)Only the most recent of2 resultswithin the time period is included. WBC 8.0 3.5 - 10.5 K/L [facility] RBC 3.69 (L) 4.63 - 6.08 M/L [facility] Hemoglobin 11.7 (L) 13.7 - 17.5 GM/DL [facility] Hematocrit 35.2 (L) 40.1 - 51.0 % [facility] MCV 95.4 (H) 79.0 - 92.2 fL [facility] MCH 31.7 25.7 - 32.2 pg [facility] MCHC 33.2 32.3 - 36.5 GM/DL [facility] RDW 13.5 11.6 - 14.4 % [facility] Platelets 185 150 - 450 K/CU MM [facility] MPV 9.9 9.4 - 12.4 fL [facility] nRBC 0 0 - 0 /100 WBC [facility] Specimen Blood Performing Organization Address City/[facility]/Zipcode Phone Number [facility] [address] [place] [address] [phone] CENTER Basic metabolic panel (03/15/2018 4:59 AM CHIE[employer] OFFICER)Only the most recent of3 resultswithin the time period is included. Sodium 135 (L) 136 - 145 meq/L [facility] Potassium 4.0 3.5 - 5.1 meq/L [facility] Chloride 106 98 - 107 meq/L [facility] CO2 25 22 - 29 meq/L [facility] BUN 13 7 - 21 mg/dL [facility] Creatinine 0.84 0.57 - 1.25 mg/dL [facility] Glucose 91 70 - 105 mg/dL [facility] Calcium 8.6 8.4 - 10.2 mg/dL [facility] EGFR 91Comment: ESTIMATED GFR IS mL/min/1.73 sq m [facility] NOT ACCURATE CREATININE [facility] CENTER CLEARANCE IN PREDICTING GLOMERULAR FILTRATION RATE. ESTIMATED GFR IS NOT APPLICABLE FOR DIALYSIS PATIENTS. Specimen Blood Narrative Performed At Please draw today if not done already. [facility] Performing Organization Address City/State/Zipcode Phone Number [facility] [address] [phone] CENTER Transthoracic 2D echo w/ doppler (cw/pw/color) (03/14/2018 2:08 PM CH[employer] OFFICER) Ejection Fraction [facility] Narrative Performed At Transthoracic Echocardiography Report (TTE) [facility] Demographics Patient Name KEON, Date of Study 03/14/2018 ANTHONY [id number] GenderMale Visit Number [id number] RaceJosewn [id number] m Number [id number] Number Date of Birth1950 Referring Physician Imtiaz Perez Age67 year(s) Technical Customer Support Specialist Alex Nick [facility] Paul Herrera MD Physician Fellow SADIA Frausto Procedure Type of Study TTE procedure:2DECHO W DOPPLER(CW/PW/COLOR) (ADAMA) Indications:Evaluation of Ventricular function post ACS. Clinical History STEMI, HLD, CAD HGB 11.3 HCT 34 % PCI Height: 69 inches Weight: 85.73 kg (189 lbs) BSA: 2.02 m^2 BMI: 27.91 kg/m^2 HR: 71 bpm BP: 95/60 mmHg Summary The left ventricle is chamber size (by vol index) is normal (male - LVED vol - 34-74ml/m2). No evidence of LV hypertrophy. All of the LV segments contract normally . LVEF by Jerome's method of disk assessment is normal (55-60%) . Grade 1 diastolic dysfunction (impaired relaxation and low-normal LA pressure). Unable to estimate peak systolic PA pressure; inadequate TR velocity signal. No pericardial effusion is visualized. Previous Study No prior exam available for comparison. Signature Findings Rhythm/BPRegular sinus rhythm during the exam. Left Ventricle The left ventricle is chamber size (by vol index) is normal (male - LVED vol - 34-74ml/m2). No evidence of LV hypertrophy. Al l of the LV segments contract normally . LV EF by Jerome's method of disk assessment is no rmal (55-60%) . Gr makenna 1 diastolic dysfunction (impaired relaxation an d low-normal LA pressure). Left AtriumLA size is normal . Right VentricleThe right ventricular chamber size and systolic fu nction are within normal limits. Right Atrium RA cavity size is normal . Aortic Valve Normal AoV structure and function. Mitral Valve Normal MV structure and function. Tricuspid ValveNormal TV structure and function. Un able to estimate peak systolic PA pressure; in adequate TR velocity signal. Pulmonic Valve Normal PV structure and function. AortaAortic root size (SInus of Valsalva diameter) is no rmal . PericardiumNo pericardial effusion is visualized. IVC/SVC/PA/PV/PleuralThe estimated RA pressure by IVC dynamics 0-5mmHg . Chambers/Structures Left Atrium LA Volume: 31.06 ml LA Area: 13.18 cm^2 LA Vol. Index: 15 ml/m^2 Left Ventricle LVIDd: 5.21 cm LVIDs: 3.92 cm LV Septum Diastolic: 1 cm LV PW Diastolic: 0.88 cmLV FS: 24.8 % LVEDV Jerome's:106.68 ml LVESV Jerome's:42.88 mlLVEDVI: 53 ml/m^2 LVEF Jerome's: 59.8 %LVESVI: 21 ml/m^2 LVOT Diameter: 2.23 cm Doppler/Quantitative Measurements Mitral Valve MV Peak E-Wave: 0.56 m/s MV Peak A-Wave: 0.64 m/s E/A Ratio: 0.88 Peak Gradient: 1.26 mmHg MV Moises. Peak: Tissue Doppler E' Septal Velocity: 0.08 m/s E/E': 7.42 Aortic Valve Peak Velocity: 1.23 m/sMean Velocity: 0.8 m/s Peak Gradient: 6.02 mmHg Mean Gradient: 3.04 mmHg AV Area (continuity): 3.77 cm^2 AV VTI: 20.33 cm AV DVI: 0.97 LVOT Peak Velocity: 1.03 m/s Peak Gradient: 4.25 mmHg Mean Velocity: 0.65 m/s Mean Gradient: 2.05 mmHg LVOT Diameter: 2.23 cmLVOT VTI: 19.65 cm LVOT Area: 3.91 cm^2LVOT SV:76.71 ml LVOT CO: 5.45 l/min LVOT CI: 2.7 l/min/m^2 Procedure Note Interface, External Ris In - 03/15/2018 9:10 AM [employer] OFFICER Transthoracic Echocardiography Report (TTE) Demographics Patient Name KEON, Date of Study 03/14/2018 ANTHONY Gender Male Visit Number [id number] Race Unknown Room Number [id number] Number Date of 1950 Referring Physician Imtiaz Perez Age 67 year(s) Technical Customer Support Specialist Alex Nick [facility] Interpreting Asael Herrera MD Physician Fellow SADIA Frausto Procedure Type of Study TTE procedure:2DECHO W DOPPLER(CW/PW/COLOR) (ADAMA) Indications:Evaluation of Ventricular function post ACS. Clinical History STEMI, HLD, CAD HGB 11.3 HCT 34 % PCI Height: 69 inches Weight: 85.73 kg (189 lbs) BSA: 2.02 m^2 BMI: 27.91 kg/m^2 HR: 71 bpm BP: 95/60 mmHg Summary The left ventricle is chamber size (by vol index) is normal (male - LVED vol - 34-74ml/m2). No evidence of LV hypertrophy. All of the LV segments contract normally . LVEF by Jerome's method of disk assessment is normal (55-60%) . Grade 1 diastolic dysfunction (impaired relaxation and low-normal LA pressure). Unable to estimate peak systolic PA pressure; inadequate TR velocity signal. No pericardial effusion is visualized. Previous Study No prior exam available for comparison. Signature Findings Rhythm/BP Regular sinus rhythm during the exam. Left Ventricle The left ventricle is chamber size (by vol index) is normal (male - LVED vol - 34-74ml/m2). No evidence of LV hypertrophy. All of the LV segments contract normally . LVEF by Jerome's method of disk assessment is normal (55-60%) . Grade 1 diastolic dysfunction (impaired relaxation and low-normal LA pressure). Left Atrium LA size is normal . Right Ventricle The right ventricular chamber size and systolic function are within normal limits. Right Atrium RA cavity size is normal . Aortic Valve Normal AoV structure and function. Mitral Valve Normal MV structure and function. Tricuspid Valve Normal TV structure and function. Unable to estimate peak systolic PA pressure; inadequate TR velocity signal. Pulmonic Valve Normal PV structure and function. Aorta Aortic root size (SInus of Valsalva diameter) is normal . Pericardium No pericardial effusion is visualized. IVC/SVC/PA/PV/Pleural The estimated RA pressure by IVC dynamics 0-5mmHg . Chambers/Structures Left Atrium LA Volume: 31.06 ml LA Area: 13.18 cm^2 LA Vol. Index: 15 ml/m^2 Left Ventricle LVIDd: 5.21 cm LVIDs: 3.92 cm LV Septum Diastolic: 1 cm LV PW Diastolic: 0.88 cm LV FS: 24.8 % LVEDV Jerome's:106.68 ml LVESV Jerome's:42.88 ml LVEDVI: 53 ml/m^2 LVEF Jerome's: 59.8 % LVESVI: 21 ml/m^2 LVOT Diameter: 2.23 cm Doppler/Quantitative Measurements Mitral Valve MV Peak E-Wave: 0.56 m/s MV Peak A-Wave: 0.64 m/s E/A Ratio: 0.88 Peak Gradient: 1.26 mmHg MV Moises. Peak: Tissue Doppler E' Septal Velocity: 0.08 m/s E/E': 7.42 Aortic Valve Peak Velocity: 1.23 m/s Mean Velocity: 0.8 m/s Peak Gradient: 6.02 mmHg Mean Gradient: 3.04 mmHg AV Area (continuity): 3.77 cm^2 AV VTI: 20.33 cm AV DVI: 0.97 LVOT Peak Velocity: 1.03 m/s Peak Gradient: 4.25 mmHg Mean Velocity: 0.65 m/s Mean Gradient: 2.05 mmHg LVOT Diameter: 2.23 cm LVOT VTI: 19.65 cm LVOT Area: 3.91 cm^2 LVOT SV:76.71 ml LVOT CO: 5.45 l/min LVOT CI: 2.7 l/min/m^2 Performing Organization Address City/State/Zipcode Phone Number [facility] MR spine cervical without IV contrast (03/14/2018 11:48 AM CHIE[employer] OFFICER)Only the most recent of2 resultswithin the time period is included. Narrative Performed At FINAL REPORT [facility] MRI cervical spine without contrast 03/14/2018 at 1121. CLINICAL HISTORY: Epidural hematoma. TECHNIQUE: Noncontrast MRI of the cervical spine was performed, utilizing sagittal T1, T2, STIR, axial T1 and T2-weighted sequences. COMPARISON: 03/12/2018. FINDINGS: There has been near complete resorption of small volume epidural hemorrhage, with partial resorption of the posterior and lateral paraspinal soft tissue hemorrhage. There has been development of an anterior paravertebral hematoma measuring up to 13 mm in thickness. There is resultant anterior displacement of the pharynx, which remains patent. There is no fracture or traumatic malalignment. Bone marrow signal intensity is unremarkable. The spinal cord is normal in size and signal intensity. Spinal canal diameter is within normal limits. There are multilevel degenerative changes resulting in varying degrees of foraminal stenosis, without high-grade central canal stenosis. IMPRESSION: 1. Since 03/12/2018, near complete resorption of epidural hemorrhage, with partial resorption of lateral and posterior paraspinal soft tissue hemorrhage. 2. Interval development of an anterior paravertebral hematoma without current airway compromise. Signed: Lavelle Davidson MD Report Verified Date/Time:03/14/2018 11:49:41 Reading Location: [facility] C013 Neuro Reading Room Procedure Note Interface, External Ris In - 03/14/2018 11:51 AM [employer]IE[employer] OFFICER FINAL REPORT MRI cervical spine without contrast 03/14/2018 at 1121. CLINICAL HISTORY: Epidural hematoma. TECHNIQUE: Noncontrast MRI of the cervical spine was performed, utilizing sagittal T1, T2, STIR, axial T1 and T2-weighted sequences. COMPARISON: 03/12/2018. FINDINGS: There has been near complete resorption of small volume epidural hemorrhage, with partial resorption of the posterior and lateral paraspinal soft tissue hemorrhage. There has been development of an anterior paravertebral hematoma measuring up to 13 mm in thickness. There is resultant anterior displacement of the pharynx, which remains patent. There is no fracture or traumatic malalignment. Bone marrow signal intensity is unremarkable. The spinal cord is normal in size and signal intensity. Spinal canal diameter is within normal limits. There are multilevel degenerative changes resulting in varying degrees of foraminal stenosis, without high-grade central canal stenosis. IMPRESSION: 1. Since 03/12/2018, near complete resorption of epidural hemorrhage, with partial resorption of lateral and posterior paraspinal soft tissue hemorrhage. 2. Interval development of an anterior paravertebral hematoma without current airway compromise. Signed: Lavelle Davidson MD Report Verified Date/Time: 03/14/2018 11:49:41 Reading Location: [facility] C013V Neuro Reading Room Performing Organization Address City/State/Zipcode Phone Number [facility] US extremity non-vascular limited left (03/13/2018 6:28 AM CHIEF H[employer] RESOURCES OFFICER) Narrative Performed At FINAL REPORT [facility] TECHNIQUE: Grayscale extremity ultrasound. INDICATION: Suspected hematoma or cyst. Soft mass after TPA COMPARISON: None. FINDINGS/IMPRESSION: No hematoma or fluid collection in the left wrist. Signed: Kayden Chisholm MD Report Verified Date/Time:03/13/2018 07:17:08 Reading Location: [facility] C013Y CT Body Reading Room Procedure Note Interface, External Ris In - 03/13/2018 7:19 AM CHIEF HUM[employer] RESOURCES OFFICER FINAL REPORT TECHNIQUE: Grayscale extremity ultrasound. INDICATION: Suspected hematoma or cyst. Soft mass after TPA COMPARISON: None. FINDINGS/IMPRESSION: No hematoma or fluid collection in the left wrist. Signed: Kayden Chisholm MD Report Verified Date/Time: 03/13/2018 07:17:08 Reading Location: [facility] B1 C013Y CT Body Reading Room Performing Organization Address City/State/Zipcode Phone Number [facility] CBC with platelet count + automated diff (03/13/2018 4:16 AM CHIEF HUM[employer] RESOURCES OFFICER)Only the most recent of3 resultswithin the time period is included. WBC 13.7 (H) 3.5 - 10.5 K/L [facility] RBC 3.71 (L) 4.63 - 6.08 M/L [facility] Hemoglobin 11.8 (L) 13.7 - 17.5 GM/DL [facility] Hematocrit 35.2 (L) 40.1 - 51.0 % [facility] MCV 94.9 (H) 79.0 - 92.2 fL [facility] MCH 31.8 25.7 - 32.2 pg [facility] MCHC 33.5 32.3 - 36.5 GM/DL [facility] RDW 14.0 11.6 - 14.4 % [facility] Platelets 209 150 - 450 K/CU MM [facility] MPV 10.1 9.4 - 12.4 fL [facility] nRBC 0 0 - 0 /100 WBC [facility] % Neutros 77 % [facility] % Lymphs 15 % [facility] % Monos 7 % [facility] % Eos 0 % [facility] % Baso 0 % [facility] # Neutros 10.59 (H) 1.78 - 5.38 K/L [facility] # Lymphs 2.09 1.32 - 3.57 K/L [facility] # Monos 0.95 (H) 0.30 - 0.82 K/L [facility] # Eos 0.01 (L) 0.04 - 0.54 K/L [facility] # Baso 0.04 0.01 - 0.08 K/L [facility] Immature 0 0 - 1 % [facility] Granulocytes-[facility] Specimen Blood Performing Organization Address City/[facility]/Zipcode Phone Number [facility] [address] [place] [address] CENTER Troponin I (03/13/2018 12:39 AM CHIEF HUMAN RESOURCES OFFICER)Only the most recent of2 resultswithin the time period is included. Troponin I 32.23 (HH) 0.00 - 0.03 ng/mL [facility] Specimen Blood Narrative Performed At Fasting [facility] Performing Organization Address City/[facility]/Zipcode Phone Number [facility] [address] [place] [address] CENTER Lipid panel (03/13/2018 12:39 AM [employer]) Triglycerides 120 mg/dL [facility] Cholesterol 192 mg/dL [facility] HDL 40 mg/dL [facility] LDL Calculated 128 mg/dL [facility] Specimen Blood Narrative Performed At Triglyceride Reference Range: [facility] Low Risk <150 [id number] High Risk 200-499 Very High Risk>=500 Cholesterol Reference Range: Low Risk <200 [id number] High Risk>240 HDL Cholesterol Reference Range: Low Risk >=60 High Risk <40 LDL Cholesterol Reference Range: Optimal<100 Near [id number] Very High >=190 Fasting Performing Organization Address City/State/Zipcode Phone Number [address] [id number] CENTER B-type Natriuretic Factor (BNP) (03/12/2018 3:31 PM [employer]) BNP 30 0 - 100 pg/mL [facility] Specimen Blood Performing Organization Address [facility] Phone Number [address] [address] CENTER POC ACTIVATED CLOTTING TIME (03/12/2018 1:52 PM [employer]ER)Only the most recent of3 resultswithin the time period is included. Activated Clotting Time 241Comment: TESTED AT sec [facility] [address] [place] [id number] Specimen Blood Performing Organization Address [facility] Phone Number [address] [address] CENTER after 04/18/2017 Insurance Payer Benefit Plan / Group Subscriber ID Type Phone Address [employer] - MEDICARE MGD [employer] MEDICARE ADV xxxxxxxxx Maps Contracted CARE (Home) [place] [address] Advance Directives For more information, please contact:[address] [phone] Code Status Date Activated Date Inactivated Comments Full Code 03/12/2018 2:28 PM This code status was determined by: Patient Full Code 03/12/2018 2:28 PM 03/12/2018 2:28 PM This code status was determined by: Patient Full Code 03/12/2018 2:26 PM 03/12/2018 2:28 PM This code status was determined by: Patient
--- OUTSIDE RECORDS SUMMARY | 2018-04-19 18:24 | XMS REPORT | Continuity of Care Document ---
:1950 Author Organization Interface Problems Problem Status Onset Classification Date Comments Source Date Reported BRANCH BLOCK Active 03/05/20 [facility] [place] DX: Active 02/17/20 RADICULOPATHY, [facility] [place] LUMBAR REGION INTERLAMINAR MARC, Active 02/06/20 [facility] RT C7-T1 18 [place] UNK Active 02/06/20 [facility] 18 [place] M54.12 - Active 12/19/19 [facility] RADICULOPATHY, 18 [place] CERVICAL REGION Radiculopathy, 05/08/19 08/10/2017 [facility] lumbar region 18 [place] M25.551 - PAIN IN Active 04/02/20 [facility] RIGHT HIP 17 [place] M54.5 - LOW BACK Active 12/11/19 [facility] PAIN 17 [place] SINUS THROMBOSIS Active 08/21/[address] Cervical fusion Resolved Problem 08/10/2017 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<sup>1</s [place], up> [facility] Heart attack Resolved Problem 08/10/2017 [facility] [place],[facility] HLD - Resolved Problem 08/10/2017 [facility] Hyperlipidemia [place],[facility] Kidney calculus Resolved Problem 08/10/2017 [facility] [place],[facility] Reflux Resolved Problem 08/10/2017 [facility] [place],[facility] Skin cancer Resolved Problem 08/10/2017 [facility] [place],[facility] Spinal stenosis, 08/10/2017 [facility] lumbosacral [place] region Other forms of 08/10/2017 [facility] scoliosis, lumbar [place] region Osteophyte, 08/10/2017 [facility] vertebrae [place] ADMINISTRTVE Active [facility] Medications Medication Details Route Status Patient Ordering Order Source Instructions Provider Date Bacitracin / 1 appl, Route: Inactive [facility] Polymyxin B TOP, TID, Drug 2014 Medical form: OINT, Center Start date: 08/24/14 9:00:00, Duration: 30 day, Stop date: 09/22/14 17:00:00Notes: (Same As: Polysporin) Nortrel 1/35 oral 1 tab, Route: No Longer [facility] tablet PO, Dosing Active 2014 Medical Weight 81.318, Center kg, Daily, Start date: 08/24/14 9:00:00, Duration: 30 day, Stop date: 09/22/14 9:00:00 predniSONE 20 mg 80 mg=4 tab, PO, Active [facility] oral tablet Daily, X 30 day, 2014 Medical # 120 tab, 0 Center Refill(s) predniSONE 20 mg 80 mg=4 tab, PO, Inactive [place] oral tablet Daily, X 30 day, 2014 Medical # 120 tab, 0 Center Refill(s) Ondansetron 4 mg, 2 mL, Inactive [place] Route: IVP, Drug 2014 Medical form: INJ, ONCE, Center Dosing Weight 81.318, kg, PRN Nausea & Vomiting, Start date: 08/23/14 16:39:00Notes: (Same as: Zofrangel) MEDICATION WASTE Product Size: 4 mg Product Wasted: 0mg Naloxone 0.04 mg, 0.1 mL, Inactive [facility] Route: IVP, Drug 2014 Medical form: INJ, Center Q2MIN, Dosing Weight 81.318, kg, PRN Narcotic Reversal, Start date: 08/23/14 16:39:00, Duration: 8 doses or times, Stop date: 08/25/14 0:00:00Notes: Same as Narcan Flumazenil 0.2 mg, 2 mL, Inactive [facility] Route: IVP, Drug 2014 Medical form: INJ, PRN, Center Dosing Weight 81.318, kg, PRN Benzodiazepine Reversal, Initial dose, Start date: 08/23/14 16:39:00, Duration: 30 day, Stop date: 09/22/14 16:38:00Notes: (Same as: Romazicon) Oxycodone 5 mg, 5 mL, Inactive [facility] Hydrochloride 1 Route: NG, Drug 2014 Medical MG/ML Oral form: LIQ, Q4H, Center Solution Dosing Weight 81.318, kg, PRN Pain Score 4-6, Start date: 08/23/14 16:39:00, Duration: 30 day, Stop date: 09/22/14 16:38:00Notes: (Same as: 'Roxicodone) potassium 2 pkt, Route: Inactive [facility] phosphate-sodium PO, Drug Form: 2014 Medical phosphate 250 PDR/REC, Q4H, Center mg-278 mg-164 mg Start date: oral powder 08/23/14 15:00:00, Duration: 2 doses or times, Stop date: 08/23/14 19:00:00Notes: (Same as: Neutra-Phos) Each 1.25 gm pkt has 250mg phosphorous. Mix w/2.5oz water and stir. sodium phosphate 15 mmol, Route: Inactive [facility] IVPB, ONCE, 2014 Medical Dosing Weight Center 81.318, kg, Start date: 08/23/14 14:41:00, Stop date: 08/23/14 14:41:00 normal saline 1,000 mL, Rate: No Longer [place] 0.9% IV 1,000 mL 75 ml/hr, Infuse Active 2014 Medical over: 13.3 hr, Center Route: IV, Dosing Weight 81.318 kg, Total Volume: 1,000, Start date: 08/23/14 12:13:00, Duration: 30 day, Stop date: 09/22/14 12:12:00 pantoprazole 40 40 mg=1 tab, PO, Active [place] mg oral enteric Daily, to be 2015 Medical coated tablet taken 30 minutes Center before breakfast., # 90 tab, 0 Refill(s)Special Instructions: to be taken 30 minutes before breakfast. predniSONE 20 mg 60 mg=3 tab, PO, No Longer [place] oral tablet Daily, X 30 day, Active 2014 Medical # 90 tab, 0 Center Refill(s) Melatonin 3 mg 3 mg, 1 tab, No Longer [place] oral tablet Route: PO, Drug Active 2014 Medical Form: TAB, Center Dosing Weight 81.318, kg, QPM, Start date: 08/22/14 21:00:00, Duration: 30 day, Stop date: 09/21/14 17:00:00Notes: (Same as: Melatonin) heparin 5,000 unit, 1 No Longer [place] mL, Route: Active 2014 Medical SUB-Q, Drug Center form: INJ, Q8H, Dosing Weight 81.318, kg, Start date: 08/22/14 16:48:00, Duration: 30 day, Stop date: 09/21/14 16:00:00Notes: porcine heparin Prednisone 60 mg, 3 tab, No Longer [place] Route: PO, Drug Active 2014 Medical form: TAB, Center Daily, Dosing Weight 81.318, kg, Priority: NOW, Start date: 08/22/14 16:41:00, Duration: 30 day, Stop date: 09/21/14 9:00:00Notes: Take with food. lidocaine 1% 1 mL, Route: Inactive [place] SUB-Q, Drug 2014 Medical Form: INJ, Center Dosing Weight 81.318, kg, ONCE, STAT, Start date: 08/21/14 11:26:00, Stop date: 08/21/14 11:26:00Notes: (Same as: Xylocaine) Co-Q10 100 mg, 1 cap, No Longer [facility] Route: PO, Drug Active 2014 Medical form: CAP, Center Daily, Dosing Weight 81.318, kg, Start date: 08/21/14 9:00:00, Duration: 30 day, Stop date: 09/19/14 9:00:00Notes: Same as Co-Enzyme Q10 Lovaza 1,000 mg, 1 cap, No Longer [facility] Route: PO, Drug Active 2014 Medical Form: CAP, Center Dosing Weight 81.318, kg, BID, Start date: 08/21/14 9:00:00, Duration: 30 day, Stop date: 09/19/14 17:00:00Notes: (Same as: MaxEPA, [place] 3 fish oil ) Non-Formulary Drug Fenofibrate 135 mg, 1 cap, No Longer [facility] Route: PO, Drug Active 2014 Medical form: CAP, Center Daily, Dosing Weight 81.318, kg, Start date: 08/21/14 9:00:00, Duration: 30 day, Stop date: 09/19/14 9:00:00Notes: Same as: Trilipix Non-Formulary Dexilant 60 mg, Route: No Longer [facility] PO, Drug form: Active 2014 Medical DRC, Daily, Center Dosing Weight 81.318, kg, Start date: 08/21/14 9:00:00, Duration: 30 day, Stop date: 09/19/14 9:00:00 clopidogrel 75 mg, 1 tab, No Longer [facility] Route: PO, Drug Active 2014 Medical form: TAB, Center Daily, Dosing Weight 81.318, kg, Start date: 08/21/14 9:00:00, Duration: 30 day, Stop date: 09/19/14 9:00:00Notes: (Same As: Plavix) Aspirin 81 MG 81 mg, 1 tab, No Longer [facility] Enteric Coated Route: PO, Drug Active 2014 Medical Tablet form: ECTAB, Center Daily, Dosing Weight 81.318, kg, Start date: 08/21/14 9:00:00, Duration: 30 day, Stop date: 09/19/14 9:00:00Notes: Do not crush or chew. (Same As: Ecotrin) potassium 18 mmol, 6 mL, Inactive [place] phosphate + Route: IVPB, 2014 Medical Sodium Chloride ONCE, Dosing Center 0.9% IV 250 mL Weight 81.318, kg, Start date: 08/21/14 0:39:00, Stop date: 08/21/14 0:39:00Notes: (Same as: K Phosphate.) 1 mMol phoshate has 1.47 mEq potassium Infuse over 4 hours Benadryl 25 mg, 1 cap, No Longer [facility] Route: IVP, Drug Active 2014 Medical form: CAP, Q6H, Center Dosing Weight 81.318, kg, Start date: 08/21/14 0:00:00, Duration: 30 day, Stop date: 09/19/14 18:00:00Notes: (Same as: Benadryl) Solu-Medrol 125 mg, 2 mL, No Longer [facility] Route: IVP, Drug Active 2014 Medical form: INJ, Q6H, Center Dosing Weight 81.318, kg, Start date: 08/21/14 0:00:00, Duration: 30 day, Stop date: 09/19/14 18:00:00Notes: (Same as:Solu-MEDROL, A-Methapred) Valproic Acid 100 500 mg, 5 mL, No Longer [place] MG/ML Injectable Route: IVPB, Active 2014 Medical Solution Drug form: INJ, [place] [Depacon] Q6H, Dosing Weight 81.318, kg, Start date: 08/21/14 0:00:00, Stop date: 09/19/14 18:00:00Notes: Dilute in at least 50ml D5W or NS. Infusion rate=20 mg/min (Same As: Depacon) Protonix 40 mg, 1 tab, No Longer [place] Route: PO, Drug Active 2014 Medical form: ECTAB, Center BID, Start date: 08/20/14 22:00:00, Duration: 30 day, Stop date: 09/19/14 17:00:00Notes: Tablet should not be chewed or crushed. (Same as: Protonix) Simvastatin 20 mg, 1 tab, No Longer [facility] Route: PO, Drug Active 2014 Medical form: TAB, Center Bedtime, Dosing Weight 81.318, kg, Start date: 08/20/14 22:00:00, Duration: 30 day, Stop date: 09/19/14 21:00:00Notes: (Same as: Zocor) Lyrica 50 mg, 1 cap, No Longer [facility] Route: PO, Drug Active 2014 Medical form: CAP, BID, Center Dosing Weight 81.318, kg, Start date: 08/20/14 22:00:00, Duration: 30 day, Stop date: 09/19/14 17:00:00Notes: Same as Lyrica tramadol 50 mg, 1 tab, No Longer [place] hydrochloride 50 Route: PO, Drug Active 2014 Medical MG Oral Tablet form: TAB, Q6H, [place] [[facility]] Dosing Weight 81.318, kg, PRN Pain Score 7-10, for brekathrough pain, Start date: 08/20/14 21:10:00, Duration: 30 day, Stop date: 09/19/14 21:09:00Notes: Not to exceed 400mg/day. (Same As: Ultram) Ondansetron 4 mg, 2 mL, No Longer [facility] Route: IVP, Drug Active 2014 Medical form: INJ, Q8H, Center Dosing Weight 81.318, kg, PRN Nausea & Vomiting, Start date: 08/20/14 20:56:00, Duration: 30 day, Stop date: 09/19/14 20:55:00Notes: (Same as: Abdulkadir) MEDICATION WASTE Product Size: 4 mg Product Wasted: ___ mg Iohexol 85 mL, Route: Inactive [place] IVP, Drug Form: 2014 Medical SOLN, Dosing Center Weight 81.318, kg, ONCALL, STAT, Start date: 08/20/14 20:26:00, Duration: 1 doses or times, Dose=2.2ml/kg, Max [id number] -- "To be infused by Radiology Staff ONLY"Special Instructions: Dose=2.2ml/kg, Max base=252ag -- "To be infused by Radiology Staff ONLY" Sodium Chloride 1,000 mL, Rate: No Longer [facility] 0.154 MEQ/ML 75 ml/hr, Infuse Active 2014 Medical Injectable over: 13.3 hr, Center Solution Route: IV, Dosing Weight 81.318 kg, Total Volume: 1,000, Start date: 08/20/14 20:19:00, Duration: 30 day, Stop date: 09/19/14 20:18:00 Lovaza 1,000 mg=, PO, Active [facility] BID [address] [place] [address] simvastatin 20 mg 20 mg=1 tab, PO, Active [facility] oral tablet Bedtime [address] [place] [address] Aspirin 81 MG 81 mg=1 tab, PO, Active [facility] Enteric Coated Daily [address] [place] [address] Tablet [place] Co-Q10 100 mg 100 mg=1 cap, Active [facility] oral capsule PO, Daily [address] [place] [address] dexlansoprazole 60 mg=1 cap, PO, No Longer [place] 60 MG Enteric Daily Active 2014 Medical Coated Capsule Center [Dexilant] fenofibric acid 135 mg=1 cap, Active [place] 135 mg oral PO, Daily 2014 [facility] delayed release Center capsule tramadol 50 mg=1 tab, PO, Active [place] hydrochloride 50 Q4H, PRN Pain 2014 Medical MG Oral Tablet [place] clopidogrel 75 mg 75 mg=1 tab, PO, Active [facility] oral tablet Daily 2014 [facility] pregabalin 50 MG 50 mg=1 cap, PO, Active [facility] Oral Capsule BID, 0 Refill(s) 2014 Medical [Lyrica] Center Sodium Chloride 1,000 mL, 1,000 Inactive [facility] 0.154 MEQ/ML ml/hr, Infuse 2014 [facility] Injectable Over: 1 hr, [place] Solution Route: IV, 1,000, Drug form: INJ, ONCE, Priority: STAT, Dosing Weight 81.318 kg, Start date: 08/20/14 20:00:00, Duration: 1 doses or times, Stop date: 08/20/14 20:00:00 Magnesium Sulfate 2 gm, 50 mL, Inactive [facility] Route: IVPB, 2014 Medical Drug form: INJ, Center ONCE, Dosing Weight 81.318, kg, Total dose=2 gm, Start date: 08/20/14 20:00:00, Duration: 1 doses or times, Stop date: 08/20/14 20:00:00 Allergies, Adverse Reactions, Alerts Substance Category Reaction Severity Reaction Status Date Comments Source type Reported Immunizations Immunization Date Given Site Status Last Updated Comments Source Results Order Name Results Value Reference Date Interpretation Comments Source Range Spine Spine lumbar Clinical Indication: - pain and weakness on rt hip and leg for years, no surgery 02/19 - lumbar wo - [facility] Comparison: MRI lumbar spine done on 05/04/2017 CT Read by: Abimael Markham MD Dictated Date/time: 02/20/18 19:15 TECHNIQUE: Sequential trans-axial images were obtained with a multi- detector helical CT. Coronal and sagittal reconstructions were obtained. Electronically Signed by: Abimael Markham MD 02/21/18 15 :[address] imaging performed at this location utilizes radiation dose optimization techniques which include one or more of the following: -Automated exposure control -Adjustment of the mA and/or kV according to patient size -Use of iterative reconstruction technique CT Radiation Dose DLP 468 mGy-cm FINDINGS: ALIGNMENT AND GENERAL ASSESSMENT: There are 5 nonrib-bearing lumbar vertebral segments. Again seen is dextroconvex scoliosis of the lumbar spine, not significantly changed since prior. Grade 1 anterolis thesis of L5 on S1, unchanged. Bilateral L5 pars defects. Grade 1 retrolisthesis of L1 on L2 and L2 on L3, also unchanged. The intervertebral alignment is otherwise maintained and the lumbar lordosis is preserved.. There are no acute fractures or subluxations of the lumbar spine. The anterior and posterior paraspinal soft tissues are unremarkable. DISK SPACES AND SOFT TISSUES: MRI has higher sensitivity and specificity for disc and soft tissue disease. T11-T12: Bilateral facet arthropathic changes, severe on the right and mild on the left. Mild to moderate right neuroforaminal narrowing. No significant disc herniation or central spinal canal stenosis. T12-L1: Bilateral facet arthropathic changes, severe on the right and moderate on the left. Resultant mild right neuroforaminal narrowing. No significant disc herniation or central spinal canal stenosis. L1-L2: Moderate to severe loss of disc height posterior disc osteophyte complex and moderate bilateral facet arthropathic changes resulting in moderate central spinal canal stenosis and moderate left neuroforaminal narrowing. L2-L3: Severe loss of disc height, diffuse disc bulge and mild bilateral facet arthropathic changes resulting in moderate bilateral neuroforaminal narrowing and moderate central spinal canal stenosis. Prominent left anterolateral osteophytosis. L3-L4: Mild diffuse disc bulge and moderate bilateral facet arthropathic changes resulting in mild central spinal canal stenosis and bilateral neuroforaminal narrowing, severe on the right and moderate on the left. L4-L5: Mild diffuse disc bulge and moderate bilateral facet arthropathic changes resulting in mild central spinal canal stenosis and bilateral neuroforaminal narrowing, severe on the right and moderate on the left. L5-S1: Grade 1 anterolisthesis resulting in mild uncovering of the disc which along with hypertrophic changes related to bilateral L5 pars defects and facet arthropathic changes results in bilateral jed roforaminal narrowing, severe on the right and moderate on the left. No significant central spinal canal stenosis. If there is further concern, CT myelogram or MRI of the lumbar spine may be performed for complete assessment. IMPRESSION: 1. Dextroconvex scoliosis of the lumbar spine centered at L2-L3. 2. Multilevel degenerative changes as described above resulting in moderate central spinal canal stenosis at L1-L2 and L2-L3 and varying degrees of bilateral neuroforaminal narrowing, severe on the right at L3-L4, L4-L5 and L5-S1. SL: [id number] Spine Spine EXAM: CT CERVICAL SPINE WITHOUT CONTRAST 01/15 [facility] cervical cervical - [facility] contrast CT contrast CT DATE: 01/15/2018 Read by: Arleth Weber Dictated Date/time: 01/15/18 16:12 Electronically Signed by: Arleth Weber 01/15/18 16:19 FINAL REPORT INDICATION: - M48.02 Spinal stenosis, cervical region COMPARISON: MRI of the cervical spine dated 12/25/2017 TECHNIQUE: Volumetric CT acquisition of the cervical spine without contrast. Axial, sagittal and coronal reconstructions. IV contrast: None. DLP: 592 mGy-cm FINDINGS: The craniocervical junction is normal. There is reversal of the cervical lordosis. Scoliotic curvature of the cervical spine with the vertex toward the left is demonstrated. The height and alignment of the vertebral bodies are otherwise unremarkable. Narrowing of the intervertebral disc spaces with anterior and posterior osteophyte formation is demonstrated from C2-C3 to C7-T1. At C2-C3 the spinal canal and the neural foramina are patent. At C3-C4 there is narrowing of the neural foramina bilaterally, more significant on the left side. At C4-C5 there is narrowing of the neural foramina bilaterally, severe on the left side. At C5-C6 there is severe narrowing of the neural foramina bilaterally. The central canal is patent. At C6-C7 there is mild narrowing of the right neural foramen. At C7-T1 the spinal canal and the neural foramina are patent. The paraspinal soft tissues are unremarkable. IMPRESSION: Degenerative changes of the disks, uncovertebral and facet joints, resulting in multilevel neural foraminal narrowing. Spine Spine EXAM: MRI CERVICAL SPINE WITHOUT CONTRAST 12/25 [facility] cervical cervical - [facility] contrast MRI contrast MRI DATE: 12/25/2017 1035 AM CDT Read by: Amilcar Yu MD Dictated Date/time: 12/25/17 11:51 Electronically Signed by: Amilcar Yu MD 12/25/17 12:05 FINAL REPORT INDICATION: 67 years old Male patient with history of cervical radiculopathy. COMPARISON: None. TECHNIQUE: Multiplanar, multisequence noncontrast MR imaging of the cervical spine. FINDINGS: There is straightening and minimal reversal of the cervical lordosis otherwise vertebral alignment is near-anatomic. Vertebral body heights are grossly maintained. No significant bone marrow signal abnormality is identified. Craniovertebral junction appears unremarkable. Cerebellar tonsils are normal in position. There is normal signal intensity of the cervical spinal cord. Prevertebral and paravertebral soft tissue appear unremarkable. Disc level analysis as follows: C2-C3: Degenerative disc desiccation with mild to moderate loss of the disc height. Posterior disc osteophyte complex indenting the ventral thecal sac without significant spinal canal stenosis. There is [id number] left neural foramina narrowing from uncovertebral and left facet hypertrophy. No significant neural foramina stenosis on the right. C3-C4: Degenerative disc desiccation with moderate loss of the disc height. Diffuse disc bulge and posterior disc osteophyte complex indenting the ventral thecal sac without significant spinal canal aki nosis. Severe left and moderate right neural foramina narrowing from uncovertebral and facet joint hypertrophy. C4-C5: Degenerative disc desiccation with moderate loss of the disc height. Diffuse disc bulge and superimposed posterior disc osteophyte complex indenting the ventral thecal sac without significant spi nal canal stenosis. [id number] bilateral neural foramina stenosis from uncovertebral and facet joint hypertrophy. C5-C6: Degenerative disc desiccation with moderate to severe loss of the disc height. Maxi bulge and superimposed posterior disc osteophyte complex indenting the ventral thecal sac. No significant spinal canal stenosis. Bilateral moderate to severe neural foramina narrowing from uncovertebral and facet joint hypertrophy. C6-C7: Degenerative disc desiccation with moderate to severe loss of the disc height. Diffuse disc bulge. There is no significant spinal canal stenosis. Bilateral mild neural foramina stenosis from uncovertebral and facet joint hypertrophy. C7-T1: Degenerative disc desiccation with mild to moderate loss of the disc height. Diffuse disc bulge. There is no significant spinal canal stenosis. No significant neural foramina stenosis is identified. IMPRESSION: 1. Diffuse mild to moderate degenerative spondylitic changes extending from C3-C4 to the level of C6-C7 with multilevel neural foramina stenosis, most pronounced at C5-C6 as detailed above. 2. No significant spinal tenderness stenosis or spinal cord signal abnormality. Spine Spine lumbar EXAM: MRI LUMBAR SPINE WITHOUT CONTRAST 05/04 - [facility] lumbar wo wo - [place] contrast MRI This report was dictated by a Planting Material Remover/ Fellow. I have personally reviewed the images as MRI well as the Resident's interpretation and agree with the findings. DATE: 05/04/2017 7 at 0808 hours Read by: Sharita White MD Resident: Sharita White MD Dictated Date/time: 05/04/17 09:25 Electronically Signed by: Jose Arteaga MD 05/04/17 18:12 FINAL REPORT INDICATION: Low back pain. Right hip and leg pain. COMPARISON: Lumbar spine radiograph 12/10/2016 TECHNIQUE: Multiplanar, multisequence noncontrast MR imaging of the lumbar spine. IV contrast: None. FINDINGS: A right convex scoliosis of 23 degrees measured between the superior endplate of L2 and the superior endplate of L4 is present. Large left lateral osteophytes are present at the concave aspect of the sc oliosis. Mild kyphosis at L1-L2. Normal conus medullaris at the level of T12. Normal conus tip at T12-L1. INDIVIDUAL LEVELS: L1-L2: Degenerative asymmetric loss of height anteriorly with minimal kyphotic deformity at this level. Minimal left lateral subluxation is noted of L1 on L2. Minimal foraminal stenosis on the left with possible encroachment upon the exiting L1 nerve root. L2-L3: Degenerative retrolisthesis of L2 on L3 by less than 25% with collapse asymmetric collapse of the disc on the left. There are reactive large left lateral endplate osteophytes. Normal disc height on the right. There is fat conversion of the bone marrow along the opposing endplates on the left reflecting chronic (Modic type II) changes. Minimal associated endplate edema is also identified reflecting ongoing degenerative changes L3-L4: Minimal degenerative loss of disc height.. Mild degenerative facet enlargement with subluxation on the right. There is slight foraminal stenosis on the right encroaching upon the exiting right L3 nerve root. Mild spinal canal stenosis with slight crowding of the cauda equina nerve roots L4-L5: Asymmetric degenerative loss of disc height on the the right with reactive endplate osteophytes on the right. Normal disc height on the left. Mild bulging posterior annulus minimally indenting th e thecal sac. Bilateral facet joint enlargement with fluid in the facet joint space on the left reflecting synovitis. Right lateral endplate osteophytes are present. In conjunction with the prominent fa cet joint, there is foraminal stenosis with impingement upon the exiting right L4 nerve root. . L5-S1: Grade 1 anterolisthesis of L4 on L5 with associated degenerative loss of disk height and a pseudobulge of subluxation of the posterior annulus. The right facet joint is slightly enlarged, resulting in right foraminal stenosis impinging upon the the exiting right L5 nerve root. IMPRESSION: 1. Foraminal stenosis at L5-S1 on the right encroaching upon the exiting L5 nerve root. 2. Foraminal stenosis at L4-L5 on the right impinging on the exiting L4 nerve root. 3. Right convex scoliosis at L2-L3 and mild kyphosis at L1-L2. 4. Grade 1 anterolisthesis of L5 on S1 5. Grade 1 retrolisthesis of L2 on L3. 6. Ongoing and chronic degenerative endplate changes at L2-L3. Hip bilat Hip bilat w EXAM: XR BILATERAL HIP 2 VIEWS AND AP PELVIS 04/02 - OPID w pelvis pelvis - [place] and both both lat lat hips hips DX DX DATE: 04/02/2017 12:10 PM LAB CLERK Read by: Juan Romano MD Dictated Date/time: 04/02/17 12:36 Electronically Signed by: Juan Romano MD 04/02/17 12:37 FINAL REPORT INDICATION: - M25.551 Pain in right hip / M25.552 Pain in left hip COMPARISON: None TECHNIQUE: AP and frogleg lateral views of the bilateral hips and a single AP view of the pelvis. DISCUSSION: No acute fracture or malalignment is identified. Hip joint spaces are preserved bilaterally. Normal sphericity of the bilateral femoral heads. No acetabular osteophytes or subchondral cysts. Sacroiliac joints and pubic symphysis are normal in appearance. Minimal dystrophic calcification in the proximal left thigh musculature. IMPRESSION: Normal exam of the bilateral hips and sacroiliac joints. Hand 3 Hand 3 views EXAM: XR BILATERAL HAND 4 VIEWS 12/10 - OPID views Bilateral DX /2016 - [place] Bilateral DX DATE: 12/10/2016 12:13 PM CDT Read by: Asael Fields MD Dictated Date/time: 12/10/16 13:41 Electronically Signed by: Asael Fields MD 12/10/16 13:45 FINAL REPORT INDICATION: - M13.0 Polyarthritis, unspecified COMPARISON: None available TECHNIQUE: PA, [place], lateral and oblique radiographs of the bilateral hands. FINDINGS: No acute fracture or malalignment is identified. Joint spaces and bone mineral density are preserved. No erosions, periostitis or ankylosis seen on either side. No soft tissue abnormality is identified. IMPRESSION: No radiographic evidence of inflammatory arthropathy. Foot 3 Foot 3 views EXAM: XR BILATERAL FOOT 3 VIEWS 12/10 - OPID views bilateral DX /2016 - [place] bilateral DX DATE: 12/10/2016 12:13 PM CDT Read by: Asael Fields MD Dictated Date/time: 12/10/16 15:10 Electronically Signed by: Asael Fields MD 12/10/16 15:11 FINAL REPORT INDICATION: - M13.0 Polyarthritis, unspecified COMPARISON: None available TECHNIQUE: AP, lateral and oblique radiographs of the feet Laterality: Bilateral FINDINGS: No acute fracture or malalignment is identified. No erosions, periostitis or ankylosis. No soft tissue abnormality is identified. IMPRESSION: No radiographic evidence of inflammatory arthropathy. Sacroiliac Sacroiliac EXAM: XR SACROILIAC JOINT 3 VIEWS 12/10 - OPID joints joints /2016 - [place] series DX series DX DATE: 12/10/2016 12:12 PM CDT Read by: Asael Fields MD Dictated Date/time: 12/10/16 15:12 Electronically Signed by: Asael Fields MD 12/10/16 15:13 FINAL REPORT INDICATION: - M54.5 Low back pain COMPARISON: None available TECHNIQUE: AP, RPO and LPO radiographs of the sacroiliac joints FINDINGS: The sacroiliac joint widths are well preserved. No sclerosis or osseous erosion is seen on either side. No other bony abnormality is identified. No soft tissue abnormality is identified. IMPRESSION: No radiographic evidence of inflammatory arthropathy. Knee 3 Knee 3 Views EXAM: XR BILATERAL KNEE 3 VIEWS 12/10 - OPID Views Bilateral DX /2016 - [place] Bilateral DX DATE: 12/10/2016 12:14 PM CDT Read by: Asael Fields MD Dictated Date/time: 12/10/16 14:40 Electronically Signed by: Asael Fields MD 12/10/16 15:10 FINAL REPORT INDICATION: - M13.0 Polyarthritis, unspecified COMPARISON: None TECHNIQUE: Weightbearing AP, lateral and sunrise views of the bilateral knees. DISCUSSION: No acute fracture or malalignment is identified. Asymmetric medial compartment joint space loss, moderate on the left side and mild on the right side. No erosions, periostitis or ankylosis seen. No soft tissue abnormality is identified. IMPRESSION: 1. Asymmetrically reduced medial compartment joint spaces, moderate on the left and mild on the right side. 2. No erosions. Spine Spine lumbar EXAM: XR LUMBAR SPINE 2 VIEWS 12/10 - OPID lumbar 2 2 or 3 views /2016 - [place] or 3 views DX DX DATE: 12/10/2016 12:12 PM CDT Read by: Asael Fields MD Dictated Date/time: 12/10/16 15:13 Electronically Signed by: Asael Fields MD 12/10/16 15:20 FINAL REPORT INDICATION: - M54.5 Low back pain COMPARISON: None available TECHNIQUE: AP and lateral radiographs of the lumbar spine FINDINGS: 5 lumbar type, non-rib bearing vertebral bodies are present. There is diffuse sclerosis of the upper lumbar spine. There is approximately 8 mm left-sided translation of L1 over L2 and approximately 6 mm right-sided translation of L3 or L4. Minimal (2 to 3 mm) ret rolisthesis of L1 over L2 and L2 over L3. There is approximately 5 mm anterolisthesis of L5 over S1. There is suggestion of pars defect at L5 level. Asymmetric moderate left-sided disc height loss seen at L1-2 and L2-3. Severe disc height loss at L5-S1. Endplate sclerosis seen at L2-3 and L5-S1. Osteophytes are seen at multiple levels, most prominent at L2-3. Mild multilevel facet arthrosis. Cholecystomy clips are noted. IMPRESSION: 1. Multilevel degenerative changes with dextroscoliosis and minimal retrolisthesis of L1 over L2 and L2 or L3. 2. 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 3. Mild left-sided translation of L1 over L2 and right-sided translation of L3 over L4. Spine Spine EXAM: XR CERVICAL SPINE 7 VIEWS 12/10 - OPID cervical cervical /2016 - [place] comp w comp w obl-flx/ex obl-flx/ext t DX DX DATE: 12/10/2016 12:13 PM CDT Read by: Asael Feilds MD Dictated Date/time: 12/10/16 13:45 Electronically Signed by: Asael Fields MD 12/10/16 14:40 FINAL REPORT INDICATION: - M13.0 Polyarthritis, unspecified COMPARISON: None available TECHNIQUE: AP, lateral, open-mouth odontoid, RPO and LPO, flexion, extension radiographs of the cervical spine show from the skull base through T1. FINDINGS: Multilevel degenerative changes are seen with severe disc height loss at C5 -6 and moderate disc height loss at C2-3, C3-4, C6-7 and C7-T1 levels. Multilevel endplate sclerosis and osteophytes are presen t. The atlantodental distance measures approximately 2.3 mm on flexion view , which is within normal limits. Moderate bilateral bony neuroforaminal stenosis seen from C2-3 to C7-T1 levels. There is minim al (1 to 2 mm) retrolisthesis of C3 over C4 seen with no significant change with positioning. Vertebral body heights preserved. No prevertebral or paraspinous soft tissue abnormality is identified. IMPRESSION: 1. Multilevel degenerative changes, severe at C5-6 and moderate at other levels as above. Bilateral moderate bony neural foraminal stenosis from C2-3 to C7-T1. 2. Minimal C3 over C4 retrolisthesis without significant change with positioning. CHEM PANEL Phosphorus 2.4 mg/dL 2.5 - 4.5 08/24 [facility] /2014 [facility] CHEM PANEL eGFR 71 08/24 1Result Comment: The eGFR is calculated using the CKD-EPI formula. In most young, healthy individuals the eGFR will be >90 mL/ min/1.73m2. The eGFR declines with age. An eGFR of 60-89 may be normal in [facility] mL/min/1. /2014 some populations, particularly the elderly, for whom the CKD-EPI formula has not been extensively validated. Use of the eGFR is not recommended in the following populations: [address] Individuals with unstable creatinine concentrations, including patients and those with serious co-morbid conditions. Patients with extremes in muscle mass or diet. The data above are obtained from the National Kidney Disease Education Program (NKDEP) which additionally recommends that when the eGFR is used in patients with extremes of body mass index for purposes of drug dosing, the eGFR should be multiplied by the estimated BMI. CHEM PANEL Chloride Lvl 104 meq/L 95 - 109 08/24 [facility] CHEM PANEL Potassium 4.7 meq/L 3.5 - 5.1 08/24 [facility] CHEM PANEL CO2 29 meq/L 24 - 32 08/24 [facility] CHEM PANEL Calcium Lvl 9.0 mg/dL 8.5 - 10.5 08/24 [facility] CHEM PANEL Glucose Lvl 98 mg/dL 70 - 99 08/24 4Interpretive Data: Adult reference range values reflect the clinical guidelines of the [place] [employer]. [facility] CHEM PANEL BUN 21 mg/dL 7 - 22 08/24 [facility] CHEM PANEL Sodium Lvl 137 meq/L 135 - 145 08/24 [facility] CHEM PANEL Creatinine 1.1 mg/dL 0.5 - 1.4 08/24 [facility] CHEM PANEL AGAP 8.7 meq/L 10.0 - 08/24 20. [facility] CHEM PANEL Magnesium 2.4 mg/dL 1.8 - 2.4 08/24 [facility] HEMATOLOGY PTT 27.5 s 22.9 - 08/24 12Interpretiv [facility] 35.8 2015 e Data: [facility] Therapeutic Range: 57 - 92 Seconds HEMATOLOGY PT 13.4 s 12.0 - 08/24 [facility] 14.7 [facility] HEMATOLOGY INR 1.02 0.85 - 08/24 9Interpretive Data: RECOMMENDED RANGES FOR PROTIME INR: [facility] . 2.0-3.0 for most medical and surgical thromboembolic states. Medical 2.5-3.5 for artificial heart valves and recurrent embolism. Center INR SHOULD BE USED ONLY FOR PATIENTS ON STABLE ANTICOAGULANT THERAPY. HEMATOLOGY MCV 92.8 fL 80.0 - 08/24 94.0 [facility] HEMATOLOGY Hct 37.7 % 42.0 - 08/24 54.0 [facility] HEMATOLOGY MPV 7.7 fL 7.4 - 10.4 08/24 [facility] HEMATOLOGY Platelet 325 K/CMM 133 - 450 08/24 [facility] HEMATOLOGY Hgb 12.5 g/dL 14.0 - 08/24 [facility] 18.0 [facility] HEMATOLOGY RBC 4.06 M/CMM 4.70 - 08/24 6.10 [facility] HEMATOLOGY WBC 14.6 K/CMM 3.7 - 10.4 08/24 [facility] HEMATOLOGY RDW 13.5 % 11.5 - 08/24 14.5 [facility] HEMATOLOGY MCHC 33.0 g/dL 32.0 - 08/24 36.0 [facility] HEMATOLOGY MCH 30.7 pg 27.0 - 08/24 31.0 [facility] HEMATOLOGY Basophils # 0.1 K/CMM 0.0 - 0.2 08/24 [facility] HEMATOLOGY Eosinophils 0.2 K/CMM 0.0 - 0.5 08/24 [facility] HEMATOLOGY Lymphocytes 1.5 K/CMM 1.0 - 5.5 08/24 [facility] HEMATOLOGY Segs-Bands # 11.5 K/CMM 1.5 - 8.1 08/24 [facility] HEMATOLOGY Basophils 0.3 % 0.0 - 1.0 08/24 [facility] HEMATOLOGY Monocytes # 1.4 K/CMM 0.0 - 0.8 08/24 [facility] HEMATOLOGY Monocytes 9.3 % 2.0 - 12.0 08/24 [facility] HEMATOLOGY Eosinophils 1.2 % 0.0 - 4.0 08/24 [facility] HEMATOLOGY Lymphocytes 10.5 % 20.0 - 08/24 40.0 [facility] HEMATOLOGY Segs 78.7 % 45.0 - 08/24 75.0 [facility] PARATHYROI Ca Norm WB 1.10 1.05 - 08/24 [facility] D PROFILE mMol/L . [facility] PARATHYROI Ca Ion WB 1.13 1. - 08/24 [facility] D PROFILE mMol/L 05.21 [facility] CHEM PANEL Phosphorus 2.2 mg/dL 2.5 - 4.5 08/23 [facility] CHEM PANEL Magnesium 2.1 mg/dL 1.8 - 2.4 08/23 [facility] Lvl [facility] CHEM PANEL eGFR 80 08/23 2Result Comment: The eGFR is calculated using the CKD-EPI formula. In most young, healthy individuals the eGFR will be >90 mL/ min/1.73m2. The eGFR declines with age. An eGFR of 60-89 may be normal in [facility] mL/min/1. some populations, particularly the elderly, for whom the CKD-EPI formula has not been extensively validated. Use of the eGFR is not recommended in the following populations: [place] [address] [facility] Individuals with unstable creatinine concentrations, including patients and those with serious co-morbid conditions. Patients with extremes in muscle mass or diet. The data above are obtained from the National Kidney Disease Education Program (NKDEP) which additionally recommends that when the eGFR is used in patients with extremes of body mass index for purposes of drug dosing, the eGFR should be multiplied by the estimated BMI. CHEM PANEL Glucose Lvl 91 mg/dL 70 - 99 08/23 5Interpretive Data: Adult reference range values reflect the clinical guidelines of the [place] [employer]. [facility] CHEM PANEL Potassium 4.1 meq/L 3.5 - 5.1 08/23 [facility] CHEM PANEL Sodium Lvl 138 meq/L 135 - 145 08/23 [facility] CHEM PANEL CO2 24 meq/L 24 - 32 08/23 2014 [facility] CHEM PANEL Chloride Lvl 106 meq/L 95 - 109 08/23 [facility] CHEM PANEL Calcium Lvl 9.0 mg/dL 8.5 - 10.5 08/23 [facility] CHEM PANEL Creatinine 1.0 mg/dL 0.5 - 1.4 08/23 [facility] CHEM PANEL BUN 16 mg/dL 7 - 22 08/23 [facility] CHEM PANEL AGAP 12.1 meq/L 10.0 - 08/23 [facility] 20.0 [facility] PARATHYROI Ca Norm WB 1.17 . - 08/23 [facility] D PROFILE mMol/L . [facility] PARATHYROI Ca Ion WB 1.15 . - 08/23 [facility] D PROFILE mMol/L 1. [facility] PARATHYROI Ca Ion WB 1.13 1. - 08/23 [facility] D PROFILE mMol/L 1. [facility] PARATHYROI Ca Norm WB 1.13 1. - 08/23 [facility] D PROFILE mMol/L 1. [facility] CHEM PANEL eGFR 71 08/23 3Result Comment: The eGFR is calculated using the CKD-EPI formula. In most young, healthy individuals the eGFR will be >90 mL/ min/1.73m2. The eGFR declines with age. An eGFR of 60-89 may be normal in [facility] mL/min/1. some populations, particularly the elderly, for whom the CKD-EPI formula has not been extensively validated. Use of the eGFR is not recommended in the following populations: [address] Individuals with unstable creatinine concentrations, including patients and those with serious co-morbid conditions. Patients with extremes in muscle mass or diet. The data above are obtained from the National Kidney Disease Education Program (NKDEP) which additionally recommends that when the eGFR is used in patients with extremes of body mass index for purposes of drug dosing, the eGFR should be multiplied by the estimated BMI. CHEM PANEL Chloride Lvl 106 meq/L 95 - 109 08/23 [facility] CHEM PANEL CO2 15 meq/L 24 - 32 08/23 [facility] CHEM PANEL Potassium 4.7 meq/L 3.5 - 5.1 08/23 [facility] CHEM PANEL Glucose Lvl 92 mg/dL 70 - 99 08/23 6Interpretive Data: Adult reference range values reflect the clinical guidelines of the [place] [employer]. [facility] CHEM PANEL BUN 10 mg/dL 7 - 22 08/23 [facility] CHEM PANEL Creatinine 1.1 mg/dL 0.5 - 1.4 08/23 [facility] CHEM PANEL Sodium Lvl 137 meq/L 135 - 145 08/23 [facility] CHEM PANEL AGAP 20.7 meq/L 10.0 - 08/23 [facility] . [facility] CHEM PANEL Calcium Lvl <5.0 mg/dL 8.5 - 10.5 08/23 7Result Comment: [facility] Result(s) called to alli reeves at 08/23/2014 05:06 by arielle. Read back OK. Analysis repeated. CHEM PANEL Magnesium 1.6 mg/dL 1.8 - 2.4 08/23 [facility] CHEM PANEL Phosphorus 2.0 mg/dL 2.5 - 4.5 08/23 [facility] HEMATOLOGY Sed Rate 32 mm/h 0 - 15 08/23 [facility] HEMATOLOGY WBC 14.6 K/CMM 3.7 - 10.4 08/23 [facility] HEMATOLOGY Hgb 13.4 g/dL 14.0 - 08/23 18.0 [facility] HEMATOLOGY RBC 4.30 M/CMM 4.70 - 08/23 6.10 [facility] HEMATOLOGY MCV 92.2 fL 80.0 - 08/23 94.0 [facility] HEMATOLOGY Hct 39.7 % 42.0 - 08/23 54.0 [facility] HEMATOLOGY MCH 31.1 pg 27.0 - 08/23 31.0 [facility] HEMATOLOGY RDW 13.5 % 11.5 - 08/23 14. [facility] HEMATOLOGY MCHC 33.8 g/dL 32.0 - 08/23 36.0 [facility] HEMATOLOGY MPV 7.7 fL 7.4 - 10.4 08/23 [facility] HEMATOLOGY Platelet 336 K/CMM 133 - 450 08/23 [facility] HEMATOLOGY PT 13.3 s 12.0 - 08/23 14.7 [facility] HEMATOLOGY PTT 28.2 s 22.9 - 08/23 13Interpretiv [facility] 35.8 e Data: [facility] Therapeutic Range: 57 - 92 Seconds HEMATOLOGY INR 1.01 0.85 - 08/23 10Interpretive Data: RECOMMENDED RANGES FOR PROTIME INR: [facility] 1. 2.0-3.0 for most medical and surgical thromboembolic states. Medical 2.5-3.5 for artificial heart valves and recurrent embolism. Center INR SHOULD BE USED ONLY FOR PATIENTS ON STABLE ANTICOAGULANT THERAPY. HEMATOLOGY Lymphocytes 0.7 K/CMM 1.0 - 5.5 08/23 [facility] HEMATOLOGY Monocytes # 0.4 K/CMM 0.0 - 0.8 08/23 [facility] HEMATOLOGY Basophils 0.1 % 0.0 - 1.0 08/23 [facility] HEMATOLOGY Segs-Bands # 13.4 K/CMM 1.5 - 8.1 08/23 [facility] HEMATOLOGY Lymphocytes 4.9 % 20.0 - 08/23 40.0 [facility] HEMATOLOGY Segs 92.2 % 45.0 - 08/23 75.0 [facility] HEMATOLOGY Monocytes 2.8 % 2.0 - 12.0 08/23 [facility] IMMUNOLOGY C-REACTIVE 26.6 mg/L <=2.9 mg/L 08/23 8Result [facility] Comment: Medical Collection Center date/time has been modified to: 03:21:00. Previous collection date/time: 14:57:00. HEMATOLOGY Sed Rate 31 mm/h 0 - 15 08/22 [facility] HEMATOLOGY Lymphocytes 0.9 K/CMM 1.0 - 5.5 08/22 [facility] # /2014 [facility] HEMATOLOGY Monocytes # 1.2 K/CMM 0.0 - 0.8 08/22 /2014 [facility] HEMATOLOGY Segs-Bands # 16.2 K/CMM 1.5 - 8.1 08/22 [facility] HEMATOLOGY Basophils 0.2 % 0.0 - 1.0 08/22 [facility] HEMATOLOGY Segs 88.4 % 45.0 - 08/22 [facility] 75.0 [facility] HEMATOLOGY Lymphocytes 5.1 % 20.0 - 08/22 [facility] 40.0 [facility] HEMATOLOGY Monocytes 6.3 % 2.0 - 12.0 08/22 [facility] HEMATOLOGY INR 1.02 0.85 - 08/22 11Interpretive Data: RECOMMENDED RANGES FOR PROTIME INR: [facility] 1.17 2.0-3.0 for most medical and surgical thromboembolic states. Medical 2.5-3.5 for artificial heart valves and recurrent embolism. Center INR SHOULD BE USED ONLY FOR PATIENTS ON STABLE ANTICOAGULANT THERAPY. HEMATOLOGY PTT 24.9 s 22.9 - 08/22 14Interpretiv [facility] 35.8 /2015 e Data: [facility] Therapeutic Range: 57 - 92 Seconds HEMATOLOGY PT 13.4 s 12.0 - 08/22 [facility] 14.7 [facility] HEMATOLOGY MPV 7.1 fL 7.4 - 10.4 08/22 [facility] HEMATOLOGY Platelet 328 K/CMM 133 - 450 08/22 [facility] HEMATOLOGY MCH 31.0 pg 27.0 - 08/22 [place] 31.0 /2014 [facility] HEMATOLOGY RDW 13.2 % 11.5 - 08/22 [place] 14.5 /2014 [facility] HEMATOLOGY Hct 40.0 % 42.0 - 08/22 [place] 54.0 /2014 [facility] HEMATOLOGY MCV 91.9 fL 80.0 - 08/22 [place] 94.0 /2014 [facility] HEMATOLOGY Hgb 13.5 g/dL 14.0 - 08/22 [place] 18.0 /2014 [facility] HEMATOLOGY MCHC 33.8 g/dL 32.0 - 08/22 [place] 36.0 /2014 [facility] HEMATOLOGY RBC 4.35 M/CMM 4.70 - 08/22 [place] 6.10 /2014 [facility] HEMATOLOGY WBC 18.3 K/CMM 3.7 - 10.4 08/22 [facility] BODY WBC CSF 1 /mm3 0 - 53 08/21 /2014 [facility] BODY Supernat CSF Colorless Colorless 08/21 Medical (08/21/14 3:29 PM) Center BODY RBC CSF 157 /mm3 0 - 03 08/21 [facility] BODY Clarity CSF Clear Clear 08/21 Medical (08/21/14 3:29 PM) Center BODY Comment CSF Differenti 08/21 [place] FLUIDS al Medical performed Center on WBC count of less than 5. BODY Color CSF Colorless Colorless 08/21 Medical (08/21/14 3:29 PM) Center BODY Tube Num CSF 4 08/21 [facility] BODY Glucose CSF 82 mg/dL 45 - 80 08/21 [facility] Center BODY Protein CSF 35 mg/dL 15 - 45 08/21 FLUIDS [facility] BODY Tube Num CSF 1 08/21 [facility] BODY Color CSF Colorless Colorless 08/21 [facility]IDS Medical (08/21/14 3:29 PM) Center BODY Clarity CSF Clear Clear 08/21 [facility] Medical (08/21/14 3:29 PM) Center BODY Supernat CSF Colorless Colorless 08/21 Medical (08/21/14 3:29 PM) Center BODY Comment CSF Differenti 08/21 [place] FLUIDS al Medical performed Center on WBC count of less than 5. BODY RBC CSF 54 /mm3 0 - 03 08/21 [facility] FLUIDS Medical Center BODY WBC CSF 1 /mm3 0 - 53 08/21 [facility] FLUIDS [facility] FUNGAL - Crypto Ag Negative Negative 08/21 [facility] SEROLOGY CSF /2014 Medical (08/21/14 3:29 PM) Center IMMUNOLOGY VDRL Scr CSF Non Reactive Non 08/21 [facility] Reactive Medical (08/21/14 3:29 PM) Center MOLECULAR Source HSV Cerebral 08/21 [facility] DIAGNOSTIC Spinal /2014 Medical Fluid Center MOLECULAR HSV 1 by PCR Not Performed 15 Negative 08/21 15Result [facility] Comment: CSF Medical (08/21/14 3:29 PM) contains less Center than 5 WBC'S and has a normal Protein level. MOLECULAR HSV 2 by PCR Not Performed 16, 17 Negative 08/21 17Interpretive Data: All results should be used as an aid in diagnosis and used in correlation with clinical findings and patient symptoms. A negative result does not rule out the presence of Herpes Simpl [facility] ex Virus. The specimen may contain HSV below the detectable limits of the assay. An indeterminate result will be obtained if inhibitors of PCR are present. [facility] (08/21/14 3:29 PM) [place] The test is performed using Analyte Specific Reagents (ASRs) for Real-Time nucleic acid amplification (PCR) from [employer] The performance characteristics of this assay were validated by [facility] within [facility]. The [facility] is authorized under the Clinical Improvement Amendments of 1988 (CLIA-88) to perform high-co mplexity testing. This test has not been cleared by the U.S. Food and Drug Administration (FDA). However, FDA approval is not required and the use should not be considered investigational or research. VIRAL - Enterovirus Negative 18 Negative 08/21 18Interpretive Data: Interpretation: [facility] SEROLOGY PCR Negative.....No enterovirus DNA detected by PCR [facility] (08/21/14 3:29 PM) Positive.....Enterovirus DNA detected by PCR Center Assay Limitations: A negative result does not rule out the presence of PCR inhibitors in the patient specimen or Enterovirus nucleic acid in concentrations below the level of detection of the assay. HEMATOLOGY Sed Rate 61 mm/h 0 - 15 08/21 [facility] IMMUNOLOGY C-REACTIVE 81.7 mg/L <=2.9 mg/L 08/21 [facility] PROTEIN [facility] IMMUNOLOGY C-REACTIVE 86.1 mg/L <=2.9 mg/L 08/21 [facility] PROTEIN [facility] HEMATOLOGY Eosinophils 0.1 % 0.0 - 4.0 08/21 [facility] LIPIDS VLDL 27 08/21 [facility] LIPIDS HDL 51 mg/dL >=61 mg/dL 08/21 [facility] LIPIDS LDL 105 mg/dL <=99 mg/dL 08/21 [facility] (Calculated) [facility] LIPIDS CHD Risk 3.59 4.00 - 08/21 [place] 7.30 [facility] LIPIDS Trig 134 mg/dL <=149 08/21 [facility] mg/dL [facility] LIPIDS Chol 183 mg/dL <=199 08/21 [facility] mg/dL [facility] SPECIAL Hgb A1C 5.7 % <=5.6 % 08/21 [facility] CHEMISTRY [facility] URINE AND UA WBC null 0 - 5 08/21 [facility] STOOL [facility] URINE AND UA <=1.0 0.1 - 1.0 08/21 [facility] Urobilinogen mg/dL [facility] URINE AND UA Color Light Yellow Yellow 08/21 [facility] *NA* Center (08/20/14 10:52 PM) URINE AND UA Turbidity Clear Clear 08/21 [facility] (08/20/14 10:52 PM) Center URINE AND UA Spec Grav 1.022 <=1.030 08/21 [facility] STOOL [facility] URINE AND UA Protein Negative Negative 08/21 [facility] STOOL mg/dL mg/dL [facility] URINE AND UA pH 7.0 5.0 - 8.0 08/21 [facility] STOOL [facility] URINE AND UA Ketones Negative Negative 08/21 [facility] STOOL mg/dL mg/dL [facility] URINE AND UA Glucose Negative Negative 08/21 [facility] STOOL mg/dL mg/dL [facility] URINE AND UA Bili Negative Negative 08/21 [facility] Medical *NA* Center (08/20/14 10:52 PM) URINE AND UA Blood Small Negative 08/21 Medical *ABN* Center (08/20/14 10:52 PM) URINE AND UA Sq Epi Occasional Few /LPF 08/21 [facility] STOOL /LPF /2014 [facility] URINE AND UA Nitrite Negative Negative 08/21 [facility] (08/20/14 10:52 PM) [place] URINE AND UA Leuk Est Negative Negative 08/21 [facility] (08/20/14 10:52 PM) [place] CHEM PANEL AST 38 unit/L 0 - 37 08/[address] CHEM PANEL ALT 57 unit/L 0 - 65 08/[address] CHEM PANEL Bili Total 0.8 mg/dL 0.2 - 1.3 08/[address] CHEM PANEL Alk Phos 83 unit/L 39 - 136 08/[address] CHEM PANEL A/G Ratio 0.7 0.7 - 1.6 08/[address] CHEM PANEL Total 7.2 g/dL 6.4 - 8.4 08/21 [facility] 2014 [facility] CHEM PANEL B/C Ratio 13 6 - 25 08/[address] CHEM PANEL Globulin 4.3 g/dL 2.0 - 4.0 08/[address] CHEM PANEL Albumin Lvl 2.9 g/dL 3.5 - 5.0 08/[address] HEMATOLOGY Eosinophils 5.3 % 0.0 - 4.0 08/[address] HEMATOLOGY Eosinophils 0.6 K/CMM 0.0 - 0.5 08/21 [facility]2014 [facility] HEMATOLOGY Basophils # 0.1 K/CMM 0.0 - 0.2 08/[address] Vital Signs Vital Sign Value Date Comments Source Respitory Rate 16 08/24/2014 [facility] Heart Rate 88 08/24/2014 [facility] Systolic (mm Hg) 113 08/24/2014 [facility] Diastolic (mm Hg) 69 08/24/2014 [facility] Temperature Oral (F) 98.3 F 08/24/2014 [facility] Systolic (mm Hg) 108 08/24/2014 [facility] Diastolic (mm Hg) 65 08/24/2014 [facility] Respitory Rate 18 08/24/2014 [facility] Heart Rate 57 08/24/2014 [facility] Temperature Oral (F) 98.2 F 08/24/2014 [facility] Temperature Oral (F) 98.9 F 08/24/2014 [facility] Systolic (mm Hg) 107 08/24/2014 [facility] Diastolic (mm Hg) 64 08/24/2014 [facility] Respitory Rate 18 08/24/2014 [facility] Heart Rate 59 08/24/2014 [facility] Weight 81.318 08/20/2014 [facility] Height 177.8 cm 08/20/2014 [facility] BMI Calculated 25.72 08/20/2014 [facility] Encounters Location Location Encounter Encounter Reason Attending ADM DC Status Source Details Type Number For Provider Date Date Visit [facility] [id number] [facility] 08/20 08/24 [facility] Outpt Diag [id number] [facility] 12/10 12/11 [facility] Outpt Diag [id number] [facility] 04/02 04/03 [facility] Outpt Diag [id number] [facility] 05/04 05/05 [facility] [id number] [place] 01/05 [facility] [place] [facility] [id number] [facility] 02/01 [facility] [place] [facility] [id number] [place] 02/09 [facility] [place] [facility] [id number] [facility] 02/16 [facility] /2017 [place] [facility] [id number] [facility] 03[facility]03 [facility] [id number] [facility] 03[facility]11 [facility] [id number] [place] 03/16 [facility] [id number] [facility] 03/24 [facility] /2017 [facility] [id number] [place] 03/30 [facility] [id number] [facility] 04/28 Active [facility] Procedures Procedure Code Date Perfomer Comments Source Arthroscopy of knee [id number] [facility] [place] [facility] [id number] WITH STENT [facility] catheterization of PLACEMENT [place] right and left heart for ventriculography<sup> 1</sup> Cholecystectomy [id number] [facility] [place] Excision of calcaneal [id number] SHOULDER [facility] spur<sup>2</sup> [place] Excision of lesion of [id number] SKIN CANCER [facility] skin<sup>3</sup> [place] Arthroscopy of knee [id number] [facility] Cardiac [id number] 1WITH STENT [facility] catheterization of PLACEMENT [facility] right and left heart [place] for ventriculography<sup> 1</sup> Cholecystectomy [id number] [facility] Excision of calcaneal [id number] 2SHOULDER [facility] spur<sup>2</sup> [facility] Excision of lesion of [id number] 3SKIN CANCER [facility]<sup>3</sup> [facility]
--- OUTSIDE RECORDS SUMMARY | 2018-04-19 18:26 | XMS REPORT ---
:1950 Author Organization [facility] Address [address] [place] [address] Care Team Providers Name Role Phone SHERIE RILEYMADDY Grider Unavailable Unavailable Problems This patient has no known problems. Allergies, Adverse Reactions, Alerts This patient has no known allergies or adverse reactions. Medications This patient has no known medications. Results Test Description Test Time Test Comments Text Results Atomic Results Result Comments BASIC METABOLIC PANEL 2018-03-15 06:07:00 Test Item Value Reference Range Comments SODIUM (BEAKER) (test 135 meq/L 136-145 lptf=549) POTASSIUM (BEAKER) (test 4.0 meq/L 3.5-5.1 auqy=293) CHLORIDE (BEAKER) (test 106 meq/L 98-107 wcbz=265) CO2 (BEAKER) (test rcfk=826) 25 meq/L 22-29 BLOOD UREA NITROGEN (BEAKER) 13 mg/dL 7-21 (test gycy=151) CREATININE (BEAKER) (test 0.84 mg/dL 0.57-1.25 dxdr=484) GLUCOSE RANDOM (BEAKER) 91 mg/dL 70-105 (test hhes=725) CALCIUM (BEAKER) (test 8.6 mg/dL 8.4-10.2 ereo=133) EGFR (BEAKER) (test 91 mL/min/1.73 sq m ESTIMATED GFR IS NOT uyqp=9094) ACCURATE CREATININE CLEARANCE IN PREDICTING GLOMERULAR FILTRATION RATE. ESTIMATED GFR IS NOT APPLICABLE FOR DIALYSIS PATIENTS. Please draw today if not done already.CBC (HEMOGRAM ONLY)2018-03-15 05:42:00 Test Item Value Reference Range Comments WHITE BLOOD CELL COUNT (BEAKER) (test mplt=298) 8.0 K/ L 3.5-10.5 RED BLOOD CELL COUNT (BEAKER) (test qcxf=658) 3.69 M/ L 4.63-6.08 HEMOGLOBIN (BEAKER) (test xogd=998) 11.7 GM/DL 13.7-17.5 HEMATOCRIT (BEAKER) (test wfbs=615) 35.2 % 40.1-51.0 MEAN CORPUSCULAR VOLUME (BEAKER) (test ilho=548) 95.4 fL 79.0-92.2 MEAN CORPUSCULAR HEMOGLOBIN (BEAKER) (test 31.7 pg 25.7-32.2 zsmi=538) MEAN CORPUSCULAR HEMOGLOBIN CONC (BEAKER) (test 33.2 GM/DL 32.3-36.5 vweg=434) RED CELL DISTRIBUTION WIDTH (BEAKER) (test 13.5 % 11.6-14.4 ayuf=157) PLATELET COUNT (BEAKER) (test fraw=179) 185 K/CU MM 150-450 MEAN PLATELET VOLUME (BEAKER) (test ynnm=538) 9.9 fL 9.4-12.4 NUCLEATED RED BLOOD CELLS (BEAKER) (test 0 /100 WBC 0-0 awzb=952) MR, SPINE, CERVICAL, WITHOUT [id number] 11:49:00FINAL REPORT MRI cervical spine without contrast 03/14/2018 at 1121. CLINICALHISTORY: Epidural hematoma. TECHNIQUE: Noncontrast MRI of the cervical spine was performed, utilizing sagittal T1, T2, STIR, axial T1 and T2-weighted sequences. COMPARISON: 03/12/2018. FINDINGS: There has been near complete resorption of small volume epidural hemorrhage, with partial resorption of theposterior and lateral paraspinal soft tissue hemorrhage. There has been development of an anterior paravertebral hematoma measuring up to 13 mm in thickness. There is resultant anterior displacement ofthe pharynx, which remains patent. There is no fracture or traumatic malalignment. Bone marrow signal intensity is unremarkable. The spinal cord is normal in size and signal intensity. Spinal canal diameter is within normal limits. There are multilevel degenerative changes resulting in varying degreesof foraminal stenosis, without high-grade central canal stenosis. IMPRESSION: 1. Since 03/12/2018, near complete resorption of epidural hemorrhage, with partial resorption of lateral and posterior paraspinal soft tissue hemorrhage. 2. Interval development of an anterior paravertebral hematoma without current airway compromise. Signed: Seipel, Lavelle MDReport Verified Date/Time: 03/14/2018 11:49:41 Reading Location: [facility] C013V Neuro Reading Room Electronically signed by: LAVELLE DAVIDSON M.D.on 03/14/2018 11:49 AMBASIC METABOLIC [id number] 04:54:00 Test Item Value Reference Range Comments SODIUM (BEAKER) (test 138 meq/L 136-145 nxrt=435) POTASSIUM (BEAKER) (test 4.3 meq/L 3.5-5.1 gobx=700) CHLORIDE (BEAKER) (test 106 meq/L 98-107 kqtk=516) CO2 (BEAKER) (test 30 meq/L 22-29 nsrm=103) BLOOD UREA NITROGEN 14 mg/dL 7-21 (BEAKER) (test seqv=514) CREATININE (BEAKER) (test 0.96 mg/dL 0.57-1.25 fokn=910) GLUCOSE RANDOM (BEAKER) 91 mg/dL 70-105 (test ezzu=175) CALCIUM (BEAKER) (test 8.6 mg/dL 8.4-10.2 yvsd=285) EGFR (BEAKER) (test 78 mL/min/1.73 sq m ESTIMATED GFR IS NOT unin=5478) ACCURATE CREATININE CLEARANCE IN PREDICTING GLOMERULAR FILTRATION RATE. ESTIMATED GFR IS NOT APPLICABLE FOR DIALYSIS PATIENTS. Please draw today if not done already.CBC (HEMOGRAM ONLY)2018-03-14 04:33:00 Test Item Value Reference Range Comments WHITE BLOOD CELL COUNT (BEAKER) (test bmsd=407) 9.7 K/ L 3.5-10.5 RED BLOOD CELL COUNT (BEAKER) (test pbba=032) 3.55 M/ L 4.63-6.08 HEMOGLOBIN (BEAKER) (test xaln=304) 11.3 GM/DL 13.7-17.5 HEMATOCRIT (BEAKER) (test fpup=182) 34.0 % 40.1-51.0 MEAN CORPUSCULAR VOLUME (BEAKER) (test urpr=423) 95.8 fL 79.0-92.2 MEAN CORPUSCULAR HEMOGLOBIN (BEAKER) (test 31.8 pg 25.7-32.2 jufm=570) MEAN CORPUSCULAR HEMOGLOBIN CONC (BEAKER) (test 33.2 GM/DL 32.3-36.5 rmhd=671) RED CELL DISTRIBUTION WIDTH (BEAKER) (test 14.1 % 11.6-14.4 nssn=536) PLATELET COUNT (BEAKER) (test qaac=516) 197 K/CU MM 150-450 MEAN PLATELET VOLUME (BEAKER) (test tddb=382) 10.1 fL 9.4-12.4 NUCLEATED RED BLOOD CELLS (BEAKER) (test 0 /100 WBC 0-0 lwwq=419) U/S, EXTREMITY (NON-VASCULAR), LEFT, [id number] 07:17:00Reason for exam:- >Ultrasound of left dorsal hand/wrist, suspect hematoma/cyst. patient with soft mass post systemic TPAFINAL REPORT TECHNIQUE: Grayscale extremity ultrasound. INDICATION: Suspectedhematoma or cyst. Soft mass after TPA COMPARISON: None. FINDINGS/IMPRESSION: No hematoma or fluid collection in the left wrist. Signed: Kayden Chisholm MDReport Verified Date/Time: 03/13/2018 07:17:08 Reading Location: [facility] C013Y CT Body Reading Room BASIC METABOLIC [id number] 06:01:00 Test Item Value Reference Range Comments SODIUM (BEAKER) (test 137 meq/L 136-145 mejy=961) POTASSIUM (BEAKER) (test 4.4 meq/L 3.5-5.1 vnow=911) CHLORIDE (BEAKER) (test 105 meq/L 98-107 oefg=731) CO2 (BEAKER) (test 28 meq/L 22-29 cmat=663) BLOOD UREA NITROGEN 13 mg/dL 7-21 (BEAKER) (test gfjm=458) CREATININE (BEAKER) (test 0.99 mg/dL 0.57-1.25 fyhm=517) GLUCOSE RANDOM (BEAKER) 113 mg/dL 70-105 (test nwjp=702) CALCIUM (BEAKER) (test 8.6 mg/dL 8.4-10.2 nioo=887) EGFR (BEAKER) (test 76 mL/min/1.73 sq m ESTIMATED GFR IS NOT xxpe=1946) ACCURATE CREATININE CLEARANCE IN PREDICTING GLOMERULAR FILTRATION RATE. ESTIMATED GFR IS NOT APPLICABLE FOR DIALYSIS PATIENTS. Please draw today if not done already.CBC W/PLT COUNT & AUTO [id number] 04:56:00 Test Item Value Reference Range Comments WHITE BLOOD CELL COUNT (BEAKER) (test qiem=667) 13.7 K/ L 3.5-10.5 RED BLOOD CELL COUNT (BEAKER) (test ihca=480) 3.71 M/ L 4.63-6.08 HEMOGLOBIN (BEAKER) (test hzdk=876) 11.8 GM/DL 13.7-17.5 HEMATOCRIT (BEAKER) (test smeh=735) 35.2 % 40.1-51.0 MEAN CORPUSCULAR VOLUME (BEAKER) (test rzdz=055) 94.9 fL 79.0-92.2 MEAN CORPUSCULAR HEMOGLOBIN (BEAKER) (test 31.8 pg 25.7-32.2 qstd=632) MEAN CORPUSCULAR HEMOGLOBIN CONC (BEAKER) (test 33.5 GM/DL 32.3-36.5 aieh=135) RED CELL DISTRIBUTION WIDTH (BEAKER) (test 14.0 % 11.6-14.4 kuqu=991) PLATELET COUNT (BEAKER) (test kdaj=238) 209 K/CU MM 150-450 MEAN PLATELET VOLUME (BEAKER) (test utlk=840) 10.1 fL 9.4-12.4 NUCLEATED RED BLOOD CELLS (BEAKER) (test 0 /100 WBC 0-0 rpzr=657) NEUTROPHILS RELATIVE PERCENT (BEAKER) (test 77 % jrkk=989) LYMPHOCYTES RELATIVE PERCENT (BEAKER) (test 15 % riyd=089) MONOCYTES RELATIVE PERCENT (BEAKER) (test 7 % metc=569) EOSINOPHILS RELATIVE PERCENT (BEAKER) (test 0 % ujjy=689) BASOPHILS RELATIVE PERCENT (BEAKER) (test 0 % xpdm=463) NEUTROPHILS ABSOLUTE COUNT (BEAKER) (test 10.59 K/ L 1.78-5.38 ubrb=033) LYMPHOCYTES ABSOLUTE COUNT (BEAKER) (test 2.09 K/ L 1.32-3.57 krqv=144) MONOCYTES ABSOLUTE COUNT (BEAKER) (test 0.95 K/ L 0.30-0.82 fkoq=354) EOSINOPHILS ABSOLUTE COUNT (BEAKER) (test 0.01 K/ L 0.04-0.54 rsgn=477) BASOPHILS ABSOLUTE COUNT (BEAKER) (test 0.04 K/ L 0.01-0.08 pkbg=651) IMMATURE GRANULOCYTES-RELATIVE PERCENT (BEAKER) 0 % 0-1 (test cxxi=9097) TROPONIN [id number] 01:41:00 Test Item Value Reference Range Comments TROPONIN I (BEAKER) (test nhqa=244) 32.23 ng/mL 0.00-0.03 FastingLIPID [id number] 01:29:00 Test Item Value Reference Range Comments TRIGLYCERIDES (BEAKER) (test bkfk=404) 120 mg/dL CHOLESTEROL (BEAKER) (test wueo=494) 192 mg/dL HDL CHOLESTEROL (BEAKER) (test eqps=257) 40 mg/dL LDL CHOLESTEROL CALCULATED (BEAKER) (test 128 mg/dL snsp=386) Triglyceride Reference Range: Low Risk <150 Borderline 150- 199 High Risk 200-499 Very High Risk >=500Cholesterol Reference Range: Low Risk <200 Borderline 200-239 High Risk > 240HDL Cholesterol Reference Range: Low Risk >=60 High Risk <40LDL Cholesterol Reference Range: Optimal <100 Near Optimal 100-129 Borderline 130-159 High 160-189 Very High >=190 FastingCBC W/PLT COUNT & AUTO [id number] 00:57:00 Test Item Value Reference Range Comments WHITE BLOOD CELL COUNT (BEAKER) (test bbqt=497) 16.0 K/ L 3.5-10.5 RED BLOOD CELL COUNT (BEAKER) (test supv=886) 3.87 M/ L 4.63-6.08 HEMOGLOBIN (BEAKER) (test hoha=882) 12.3 GM/DL 13.7-17.5 HEMATOCRIT (BEAKER) (test jmqr=275) 36.4 % 40.1-51.0 MEAN CORPUSCULAR VOLUME (BEAKER) (test tynv=535) 94.1 fL 79.0-92.2 MEAN CORPUSCULAR HEMOGLOBIN (BEAKER) (test 31.8 pg 25.7-32.2 vtgu=384) MEAN CORPUSCULAR HEMOGLOBIN CONC (BEAKER) (test 33.8 GM/DL 32.3-36.5 iizo=906) RED CELL DISTRIBUTION WIDTH (BEAKER) (test 13.8 % 11.6-14.4 kwjr=449) PLATELET COUNT (BEAKER) (test bnpv=835) 226 K/CU MM 150-450 MEAN PLATELET VOLUME (BEAKER) (test nznh=869) 9.9 fL 9.4-12.4 NUCLEATED RED BLOOD CELLS (BEAKER) (test 0 /100 WBC 0-0 sfia=481) NEUTROPHILS RELATIVE PERCENT (BEAKER) (test 84 % cefn=855) LYMPHOCYTES RELATIVE PERCENT (BEAKER) (test 8 % jjpn=406) MONOCYTES RELATIVE PERCENT (BEAKER) (test 7 % fljv=599) EOSINOPHILS RELATIVE PERCENT (BEAKER) (test 0 % sfvq=118) BASOPHILS RELATIVE PERCENT (BEAKER) (test 0 % duxd=270) NEUTROPHILS ABSOLUTE COUNT (BEAKER) (test 13.43 K/ L 1.78-5.38 izvn=049) LYMPHOCYTES ABSOLUTE COUNT (BEAKER) (test 1.34 K/ L 1.32-3.57 yoyn=736) MONOCYTES ABSOLUTE COUNT (BEAKER) (test 1.13 K/ L 0.30-0.82 fjbj=131) EOSINOPHILS ABSOLUTE COUNT (BEAKER) (test 0.00 K/ L 0.04-0.54 hynm=131) BASOPHILS ABSOLUTE COUNT (BEAKER) (test 0.03 K/ L 0.01-0.08 uxau=597) IMMATURE GRANULOCYTES-RELATIVE PERCENT (BEAKER) 0 % 0-1 (test dzei=7095) MR, SPINE, CERVICAL, WITHOUT [id number] 18:12:00FINAL REPORT MRI cervical spine without contrast 03/12/2018 at 1800. CLINICALHISTORY: Neck pain, hematoma. TECHNIQUE: Noncontrast MRI of the cervical spine was performed, utilizing sagittal T1, T2, STIR, axial T1 and T2- weighted sequences. COMPARISON: None available. FINDINGS: There is a circumferential epidural hematoma extending from the skull base through the inferior fieldof view, at T3, which reaches a maximum depth of 4 mm posterior to C2. There is resultant constriction of the thecal sac. There is no current compressive edema in the cervical spinal cord. There is a large disorganized posterior and lateral paraspinal soft tissue hematoma extending from C1 through C7.There is no aerodigestive tract effacement. There is no fracture or traumatic malalignment. Bone marrow signal intensity is unremarkable. Spinal canal diameter is within normal limits. There are multilevel degenerative changes resulting in varying degrees of foraminal stenosis, without high-grade central canal stenosis. IMPRESSION: 1. Circumferential epidural hematoma without current compressive edema in the cervical spinal cord. 2. Large disorganized paraspinal soft tissue hematoma without aerodigestive tract compromise. 3. Chronic appearing degenerative changes, without high-grade central canal stenosis. Critical findings were discussed with Dr. Gordon Ferro on 03/12/2018 at 1800. Signed: Lavelle Davidson Verified Date/Time: 18:12:30 Reading [facility] RadiologyReading Room TROPONIN [id number] 16:21:00 Test Item Value Reference Range Comments TROPONIN I (BEAKER) (test kfnc=460) 137.89 ng/mL 0.00-0.03 B-TYPE NATRIURETIC FACTOR (BNP)2018-03-12 16:01:00 Test Item Value Reference Range Comments B-TYPE NATRIURETIC PEPTIDE (BEAKER) (test hmsm=081) 30 pg/mL 0-100 CBC W/PLT COUNT & AUTO [id number] 15:43:00 Test Item Value Reference Range Comments WHITE BLOOD CELL COUNT (BEAKER) (test iocu=511) 16.4 K/ L 3.5-10.5 RED BLOOD CELL COUNT (BEAKER) (test xqzp=046) 4.19 M/ L 4.63-6.08 HEMOGLOBIN (BEAKER) (test pghf=519) 13.2 GM/DL 13.7-17.5 HEMATOCRIT (BEAKER) (test ehku=830) 39.3 % 40.1-51.0 MEAN CORPUSCULAR VOLUME (BEAKER) (test csjv=661) 93.8 fL 79.0-92.2 MEAN CORPUSCULAR HEMOGLOBIN (BEAKER) (test 31.5 pg 25.7-32.2 rpgd=836) MEAN CORPUSCULAR HEMOGLOBIN CONC (BEAKER) (test 33.6 GM/DL 32.3-36.5 hqsg=041) RED CELL DISTRIBUTION WIDTH (BEAKER) (test 13.7 % 11.6-14.4 quvn=947) PLATELET COUNT (BEAKER) (test yoqy=735) 268 K/CU MM 150-450 MEAN PLATELET VOLUME (BEAKER) (test ztbw=940) 10.9 fL 9.4-12.4 NUCLEATED RED BLOOD CELLS (BEAKER) (test 0 /100 WBC 0-0 ncbr=291) NEUTROPHILS RELATIVE PERCENT (BEAKER) (test 80 % fxgf=454) LYMPHOCYTES RELATIVE PERCENT (BEAKER) (test 12 % akmd=169) MONOCYTES RELATIVE PERCENT (BEAKER) (test 7 % rprf=632) EOSINOPHILS RELATIVE PERCENT (BEAKER) (test 0 % xaky=568) BASOPHILS RELATIVE PERCENT (BEAKER) (test 0 % vciy=107) NEUTROPHILS ABSOLUTE COUNT (BEAKER) (test 13.16 K/ L 1.78-5.38 ilsq=065) LYMPHOCYTES ABSOLUTE COUNT (BEAKER) (test 2.03 K/ L 1.32-3.57 cbxv=192) MONOCYTES ABSOLUTE COUNT (BEAKER) (test 1.11 K/ L 0.30-0.82 hxpe=884) EOSINOPHILS ABSOLUTE COUNT (BEAKER) (test 0.00 K/ L 0.04-0.54 achj=869) BASOPHILS ABSOLUTE COUNT (BEAKER) (test 0.02 K/ L 0.01-0.08 xuyc=200) IMMATURE GRANULOCYTES-RELATIVE PERCENT (BEAKER) 1 % 0-1 (test pcsi=7205) [id number] 15:12:00 Test Item Value Reference Range Comments ACTIVATED CLOTTING TIME [address] [facility] [address] (BEAKER) (test rchi=751) [place] [address] [id number] 15:12:00 Test Item Value Reference Range Comments ACTIVATED CLOTTING TIME [address] [facility] [address] (BEAKER) (test ctlu=571) [place] [address] [id number] 13:09:00 Test Item Value Reference Range Comments ACTIVATED CLOTTING TIME [address] [facility] [address] (BEAKER) (test dlih=780) [place] [address]
[2018-04-19 19:26] LABS: Absolute Lymphocytes (CBC) 0.3 K/uL (0.7-4.9); Absolute Monocytes 0.3 K/uL (0.1-1.3); Basophils % 0.5 % (0-1.3); Eosinophils % 1.1 % (0-4.4); Hematocrit 46.4 % (39.6-49.0); Lymphocytes % 3.2 % (15.3-44.8); MPV 8.4 fL (7.6-11.3); Monocytes % 3.6 % (3.3-12.3); RBC Red Blood Cell Count 4.94 M/uL (4.33-5.43)
[2018-04-19] MEDS ORDERED: NA CHLORIDE 0.9% 1,000 ML ONE (19:30)
[2018-04-19] MEDS ORDERED: ONDANSETRON 4 MG/2 ML VIAL ONE (19:30)
[2018-04-19 19:43] LABS: Albumin 3.5 g/dL (3.4-5.0); Bilirubin Direct 0.3 mg/dL (0-0.2); Bilirubin Total 1.1 mg/dL (0.2-1.0); Potassium 3.7 mmol/L (3.5-5.1); Protein, Total 7.3 g/dL (6.4-8.2)
[2018-04-19 20:00] LABS: Urine Bacteria <20 /HPF (NONE SEEN); Urine Culture Reflex Order NOT NEEDED; Urine Mucus 2+ /HPF (NONE SEEN); Urine RBC >50 /HPF (NONE SEEN)
[2018-04-19 20:00] LABS: Blood Morphology Comment NOT SEEN (NOT SEEN); Platelet Estimate ADEQ; Urine White Blood Cell Casts OK
[2018-04-19 20:20] LABS: Urine Blood 2+ (NEG); Urine Glucose NEGATIVE (NEG); Urine Protein 1+ (NEG); Urine pH 8.5 (5.0-7.0)
--- NOTE | 2018-04-19 20:59 | ER ---
Nurse's Notes [facility] Name: Anthony Moya Age: 68 yrs Sex: Male : 1950 Arrival Date: 04/19/2018 Time: 18:23 Bed 14 Private MD: Darius Wilson B Diagnosis: Diarrhea, unspecified Presentation: 04/19 18:31 Presenting complaint: Patient states: Bloating, nausea, SOB, low grade fever since last aj night. Tylenol administered [employer] at 1745. Transition of care: patient was not received from another setting of care. Onset of symptoms was April 19, 2018. Risk Assessment: Do you want to hurt yourself or someone else? Patient reports no desire to harm self or others. Initial Sepsis Screen: Does the patient meet any 2 criteria? No. Patient's initial sepsis screen is negative. Does the patient have a suspected source of infection? No. Patient's initial sepsis screen is negative. Care prior to arrival: None. 18:31 Method Of Arrival: Ambulatory 18:31 Acuity: MARC 4 aj Triage Assessment: 18:33 General: Appears in no apparent distress. comfortable, Behavior is calm, cooperative, aj appropriate for age. Pain: Denies pain. Neuro: Level of Consciousness is awake, alert, obeys commands, Oriented to person, place, time, situation, Appropriate for age. Respiratory: Airway is patent Respiratory effort is even, unlabored, Respiratory pattern is regular, symmetrical. GI: Reports bloating, nausea. Derm: Skin is intact, is healthy with good turgor, Skin is pink, warm \T\ dry. normal. Historical: - Allergies: 18:33 No Known Drug Allergies; aj - Home Meds: 18:33 aspirin 81 mg Oral TbEC [Active]; b12 [Active]; Cialis 5 mg Oral tab 1 tab once daily aj [Active]; Citracal + D Maximum 315-250 mg-unit Oral tab [Active]; clopidogrel 75 mg Oral tab 1 tab once daily [Active]; CoQ-10 100 mg Oral cap [Active]; d3 [Active]; Dexilant 60 mg Oral CpDB 1 cap once daily [Active]; fenofibric acid 105 mg Oral tab 1 tab once daily [Active]; flaxseed oil Oral [Active]; gabapentin Oral [Active]; rosuvastatin 10 mg Oral tab 1 tab once daily [Active]; Zetia 10 mg Oral tab 1 tab once daily [Active]; magnesium oxide 400 mg Oral tab [Active]; - PMHx: 18:33 Hyperlipidemia; Myocardial infarction; aj - PSHx: 18:33 Heart stents; aj - Immunization history:: Adult Immunizations up to date. - Social history:: Smoking status: Patient/guardian denies using tobacco, Patient/guardian denies using alcohol, street drugs, The patient lives with family. - Ebola Screening: : Patient negative for fever greater than or equal to 101.5 degrees Fahrenheit, and additional compatible Ebola Virus Disease symptoms Patient denies exposure to infectious person Patient denies travel to an Ebola-affected area in the 21 days before illness onset No symptoms or risks identified at this time. - Family history:: not pertinent. Screenin:10 Abuse screen: Denies threats or abuse. Nutritional screening: No deficits noted. jb4 Tuberculosis screening: No symptoms or risk factors identified. Fall Risk None identified. Assessment: 19:10 General: Appears in no apparent distress. comfortable, Behavior is calm, cooperative, jb4 appropriate for age. Pain: Complains of pain in generalized. Pain currently is 8 out of 10 on a pain scale. Quality of pain is described as aching. Neuro: Level of Consciousness is. Cardiovascular: Patient's skin is warm and dry. Respiratory: Airway is patent Respiratory effort is even, unlabored, Respiratory pattern is regular, symmetrical. GI: Abdomen is round non-distended, Bowel sounds present X 4 quads. Abd is soft and non tender X 4 quads. Reports nausea, vomiting. : No signs and/or symptoms were reported regarding the genitourinary system. EENT: No signs and/or symptoms were reported regarding the EENT system. Derm: Skin is intact, Skin is pink, warm \T\ dry. Musculoskeletal: Circulation, motion, and sensation intact. 20:00 Reassessment: Patient appears in no apparent distress at this time. Patient and/or jb4 family updated on plan of care and expected duration. Pain level reassessed. Patient is alert, oriented x 3, equal unlabored respirations, skin warm/dry/pink. 21:25 Reassessment: Patient appears in no apparent distress at this time. Patient and/or jb4 family updated on plan of care and expected duration. Pain level reassessed. Patient is alert, oriented x 3, equal unlabored respirations, skin warm/dry/pink. Discussed D/c, F/u with pt and pt's , denies questions or concerns. Vital Signs: 18:33 BP 117 / 73; Pulse 114; Resp 20; Temp 99.6; Pulse Ox 99% on R/A; Weight 83.91 kg; aj Height 5 ft. 9 in. (175.26 cm); 21:15 BP 116 / 79; Pulse 87; Resp 20; Pulse Ox 100% on R/A; jb4 18:33 Body Mass Index 27.32 (83.91 kg, 175.26 cm) aj ED Course: 18:23 Patient arrived in ED. sb2 18:23 Darius Wilson MD is Private Physician. sb2 18:32 Triage completed. aj 18:33 Arm band placed on left wrist. Patient placed in an exam room. aj 18:35 Coretta Keating MD is Attending Physician. ma2 18:52 Coretta Keating MD is Attending Physician. ma2 19:10 Patient has correct armband on for positive identification. Bed in low position. Call jb4 light in reach. Side rails up X 1. Pulse ox on. NIBP on. 19:12 David Clifton, RN is Primary Nurse. jb4 19:15 Initial lab(s) drawn, by me, sent to lab. gm 19:22 Inserted saline lock: 20 gauge in right forearm, using aseptic technique. Blood gm collected. 20:19 Inserted saline lock: 22 gauge in left antecubital area, using aseptic technique. gm 21:25 No provider procedures requiring assistance completed. IV discontinued, intact, jb4 bleeding controlled. Administered Medications: 19:50 Drug: Zofran 4 mg Route: IVP; Site: right forearm; jb4 20:34 Follow up: Response: No adverse reaction; Nausea is decreased jb4 20:33 Drug: NS 0.9% 1000 ml Route: IV; Rate: 1 bolus; Site: left antecubital; jb4 21:24 Follow up: Response: No adverse reaction; IV Status: Completed infusion jb4 21:14 Drug: Zofran 4 mg Route: PO; jb4 21:23 Follow up: Response: No adverse reaction jb4 21:15 Drug: Zofran 4 mg Route: PO; jb4 21:23 Follow up: Response: No adverse reaction jb4 Outcome: 20:59 Discharge ordered by . bruce 21:25 Discharged to home via wheelchair, with family. jb4 21:25 Condition: stable 21:25 Discharge instructions given to patient, significant other, Instructed on discharge instructions, follow up and referral plans. medication usage, Demonstrated understanding of instructions, follow-up care, medications, Prescriptions given X 1. 21:31 Patient left the ED. jb4 Signatures: Genesis Vazquez RN RN aj Bryson, James, RN RN jb4 Coretta Keating MD MD ma2 Juliette Mccrary2 Sarah Peres
--- NOTE | 2018-04-19 20:59 | EDPHYS ---
Physician Documentation [facility] Name: Anthony Moya Age: 68 yrs Sex: Male : 1950 Arrival Date: 04/19/2018 Time: 18:23 Bed 14 Private MD: Darius Wilson B ED Physician Coretta Keating HPI: 04/19 18:53 This 68 yrs old Male presents to ER via Ambulatory with complaints of Flu ma2 Symptoms. 18:53 The patient presents to the emergency department with nausea, vomiting, diarrhea. ma2 Onset: The symptoms/episode began/occurred gradually, 2 day(s) ago. Possible causes: unknown. Associated signs and symptoms: Pertinent positives: diarrhea, nausea, vomiting, Pertinent negatives: abdominal pain, anorexia, dysuria, fever, flatulence, hematuria. Severity of symptoms: At their worst the symptoms were moderate in the emergency department the symptoms are unchanged. The patient has experienced similar episodes in the past. Historical: - Allergies: 18:33 No Known Drug Allergies; aj - Home Meds: 18:33 aspirin 81 mg Oral TbEC [Active]; b12 [Active]; Cialis 5 mg Oral tab 1 tab once daily aj [Active]; Citracal + D Maximum 315-250 mg-unit Oral tab [Active]; clopidogrel 75 mg Oral tab 1 tab once daily [Active]; CoQ-10 100 mg Oral cap [Active]; d3 [Active]; Dexilant 60 mg Oral CpDB 1 cap once daily [Active]; fenofibric acid 105 mg Oral tab 1 tab once daily [Active]; flaxseed oil Oral [Active]; gabapentin Oral [Active]; rosuvastatin 10 mg Oral tab 1 tab once daily [Active]; Zetia 10 mg Oral tab 1 tab once daily [Active]; magnesium oxide 400 mg Oral tab [Active]; - PMHx: 18:33 Hyperlipidemia; Myocardial infarction; aj - PSHx: 18:33 Heart stents; aj - Immunization history:: Adult Immunizations up to date. - Social history:: Smoking status: Patient/guardian denies using tobacco, Patient/guardian denies using alcohol, street drugs, The patient lives with family. - Ebola Screening: : Patient negative for fever greater than or equal to 101.5 degrees Fahrenheit, and additional compatible Ebola Virus Disease symptoms Patient denies exposure to infectious person Patient denies travel to an Ebola-affected area in the 21 days before illness onset No symptoms or risks identified at this time. - Family history:: not pertinent. ROS: 18:53 Eyes: Negative for injury, pain, redness, and discharge, Cardiovascular: Negative for ma2 chest pain, palpitations, and edema, Respiratory: Negative for shortness of breath, cough, wheezing, and pleuritic chest pain, Back: Negative for injury and pain, MS/Extremity: Negative for injury and deformity, Skin: Negative for injury, rash, and discoloration, Psych: Negative for depression, anxiety, suicide ideation, homicidal ideation, and hallucinations, Allergy/Immunology: Negative for hives, rash, and allergies, Hematologic/Lymphatic: Negative for swollen nodes, abnormal bleeding, and unusual bruising. 18:53 Abdomen/GI: Positive for nausea, vomiting, and diarrhea, Negative for abdominal pain, abdominal cramps, anorexia, rectal bleeding, bowel incontinence. 18:53 All other systems are negative. Exam: 18:53 Constitutional: This is a well developed, well nourished patient who is awake, alert, ma2 and in no acute distress. Chest/axilla: Normal chest wall appearance and motion. Nontender with no deformity. No lesions are appreciated. Cardiovascular: Regular rate and rhythm with a normal S1 and S2. No gallops, murmurs, or rubs. Normal PMI, no JVD. No pulse deficits. Respiratory: Lungs have equal breath sounds bilaterally, clear to auscultation and percussion. No rales, rhonchi or wheezes noted. No increased work of breathing, no retractions or nasal flaring. Abdomen/GI: Soft, non-tender, with normal bowel sounds. No distension or tympany. No guarding or rebound. No evidence of tenderness throughout. Skin: Warm, dry with normal turgor. Normal color with no rashes, no lesions, and no evidence of cellulitis. MS/ Extremity: Pulses equal, no cyanosis. Neurovascular intact. Full, normal range of motion. Neuro: Awake and alert, GCS 15, oriented to person, place, time, and situation. Cranial nerves II-XII grossly intact. Motor strength 5/5 in all extremities. Sensory grossly intact. Cerebellar exam normal. Normal gait. Vital Signs: 18:33 BP 117 / 73; Pulse 114; Resp 20; Temp 99.6; Pulse Ox 99% on R/A; Weight 83.91 kg; aj Height 5 ft. 9 in. (175.26 cm); 21:15 BP 116 / 79; Pulse 87; Resp 20; Pulse Ox 100% on R/A; jb4 18:33 Body Mass Index 27.32 (83.91 kg, 175.26 cm) aj MDM: 18:40 Patient medically screened. ok2 18:53 Differential diagnosis: gastritis, pancreatitis, viral gastroenteritis, gastroenteritis.ok2 20:09 Data reviewed: vital signs, nurses notes, lab test result(s). Counseling: I had a [facility] detailed discussion with the patient and/or guardian regarding: the historical points, exam findings, and any diagnostic results supporting the discharge/admit diagnosis, the presence of at least one elevated blood pressure reading (>120/80) during this emergency department visit, the need for outpatient follow up. Response to treatment: the patient's symptoms have markedly improved after treatment, the patient's symptoms have resolved after treatment. 04/19 18:53 Order name: Basic Metabolic Panel [facility] 04/19 18:53 Order name: CBC with Diff [facility] 04/19 18:53 Order name: Creatinine for Radiology [facility] 04/19 18:53 Order name: Hepatic Function [facility] 04/19 18:53 Order name: Lipase [facility] 04/19 18:53 Order name: Flu; Complete Time: 19:58 [facility] 04/19 18:53 Order name: UA MICROSCOPIC [facility] 04/19 18:54 Order name: Basic Metabolic Panel; Complete Time: 19:58 [facility] 04/19 18:54 Order name: CBC with Automated Diff [facility] 04/19 18:54 Order name: Creatinine (Radiology Only); Complete Time: 19:58 [facility] 04/19 18:54 Order name: Liver (Hepatic) Function; Complete Time: 19:58 [facility] 04/19 18:54 Order name: Lipase; Complete Time: 19:58 [facility] 04/19 19:35 Order name: CBC Smear Scan [facility] 04/19 20:00 Order name: Urine Dipstick--Ancillary (enter results) [facility] 04/19 18:53 Order name: IV Saline Lock; Complete Time: 20:04 [facility] 04/19 18:53 Order name: Labs collected and sent; Complete Time: 20:04 [facility] 04/19 18:53 Order name: Urine Dipstick-Ancillary (obtain specimen); Complete Time: 20:33 ma2 Administered Medications: 19:50 Drug: Zofran 4 mg Route: IVP; Site: right forearm; jb4 20:34 Follow up: Response: No adverse reaction; Nausea is decreased 4 20:33 Drug: NS 0.9% 1000 ml Route: IV; Rate: 1 bolus; Site: left antecubital; jb4 21:24 Follow up: Response: No adverse reaction; IV Status: Completed infusion jb4 21:14 Drug: Zofran 4 mg Route: PO; jb4 21:23 Follow up: Response: No adverse reaction jb4 21:15 Drug: Zofran 4 mg Route: PO; jb4 21:23 Follow up: Response: No adverse reaction jb4 Disposition: 04/19/18 20:59 Discharged to Home. Impression: Diarrhea, unspecified. - Condition is Stable. - Discharge Instructions: Diarrhea, Adult, Viral Gastroenteritis, Adult. - Prescriptions for Zofran 4 mg Oral Tablet - take 1 tablet by ORAL route every 12 hours As needed; 6 tablet. Zofran 4 mg Oral Tablet - take 1 tablet by ORAL route every 12 hours As needed; 20 tablet. - Medication Reconciliation Form, Thank You Letter, Antibiotic Education, Prescription Opioid Use form. - Follow up: Private Physician; When: Tomorrow; Reason: Continuance of care. Signatures: Dispatcher [employer] EDGenesis Chen RN RN aj Bryson, James, RN RN jb4 Coretta Keating MD MD ok2 Corrections: (The following items were deleted from the chart) 21:31 20:59 04/19/2018 20:59 Discharged to Home. Impression: Diarrhea, unspecified. Condition jb4 is Stable. Discharge Instructions: Viral Gastroenteritis, Adult. Prescriptions for Zofran 4 mg Oral Tablet - take 1 tablet by ORAL route every 12 hours As needed; 6 tablet. and Forms are Medication Reconciliation Form, Thank You Letter, Antibiotic Education, Prescription Opioid Use. Follow up: Private Physician; When: Tomorrow; Reason: Continuance of care. ma2
[2018-04-19] MEDS ORDERED: ONDANSETRON 4 MG (ODT) TAB ONE (21:23)
[2018-04-19 22:46] VITALS: TEMP 99.6
[2018-04-19 22:48] VITALS: BP 116/79; O2SAT 100
== END 2018-04-19 21:31 | disposition home or self-care (01) ==
LOC: ER 18:21
DX: R19.7 Diarrhea, unspecified (principal); E78.5 Hyperlipidemia, unspecified; I25.2 Old myocardial infarction; Z79.82 Long term (current) use of aspirin; Z79.899 Other long term (current) drug therapy
CPT/HCPCS: 36415; 80048; 80076; 81003; 81015; 83690; 85025; 87804; 96361; 96374; 99284; J2405; J7030

== ENCOUNTER 2018-04-30 17:05 | Emergency (ER) | payer OTHER ==
--- OUTSIDE RECORDS SUMMARY | 2018-04-30 17:07 | XMS REPORT | Clinical Summary ---
:1950 Author Organization [facility] Address [address] [place] [address] Care Team Providers Name Role Phone Wilbur Wilson MD Primary Care Provider Allergies No Known Allergies Medications Medication Sig Dispensed Refills Start Date End Date Status aspirin (ECOTRIN) 81 Take 81 mg by 0 Active MG enteric coated mouth daily. tablet dexlansoprazole Take 60 mg by 0 Active (DEXILANT) 60 mg mouth daily. capsule coenzyme [id number] Take by mouth. 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 Hyperlipidemia 01/19/2017 Stented coronary artery 01/19/2017 Chest pain 01/19/2017 Coronary artery disease involving [place] heart with angina pectoris 01/19/2017 Carotid bruit 01/19/2017 Abnormal EKG 01/19/2017 Encounters Date Type Specialty Care Team Description 03/26/2018 Office Visit Cardiology Vitaliy Cristobal MD Coronary artery disease involving [place] coronary artery of [place] heart without angina pectoris (Primary Dx); Stented coronary artery; ST elevation myocardial infarction involving left circumflex coronary artery (HCC) 03/12/2018 Intake Access N/A 01/01/2018 Office Visit Cardiology Vitaliy Cristobal MD Coronary artery disease involving [place] coronary artery of [place] heart without angina pectoris (Primary Dx); Pure hypercholesterolemia; Stented coronary artery 10/16/2017 Refill Cardiology Vitaliy Cristobal MD Med Refill 06/29/2017 Office Visit Cardiology Vitaliy Cristobal MD Coronary artery disease involving [place] coronary artery of [place] heart without angina pectoris (Primary Dx); Stented coronary artery after 04/29/2017 Social History Tobacco Use Types Packs/Day Years [...] Taken Blood Pressure 128/78 03/26/2018 11:40 AM CHARGE AIDE Pulse 74 03/26/2018 11:40 AM CHARGE AIDE Temperature 37 C (98.6 F) 03/26/2018 11:40 AM CHARGE AIDE Respiratory Rate 18 03/26/2018 11:40 AM CHARGE AIDE Oxygen Saturation 97% 03/26/2018 11:40 AM CHARGE AIDE Inhaled Oxygen Concentration - - Weight 84.7 kg (186 lb 12 oz) 03/26/2018 11:40 AM CHARGE AIDE Height 175.3 cm (5' 9") 03/26/2018 11:40 AM CHARGE AIDE Body Mass Index 27.58 03/26/2018 11:40 AM CHARGE AIDE Plan of Treatment Date Type Specialty Care Team Description 06/23/2018 Appointment Procedural Cardiology Vitaliy Cristobal MD [address] [id number] 06/29/2018 Office Visit Cardiology Vitaliy Cristobal MD [address] [phone] Health Maintenance Due Date Last Done Comments COLON CANCER SCREENING 2001 SHINGLES VACCINES (1 of 2) 2001 PNEUMOCOCCAL POLYSACCHARIDE VACCINE AGE 65 AND OVER 2016 PNEUMOCOCCAL-13 2016 INFLUENZA VACCINE 11/25/2017 Procedures Procedure Name Priority Date/Time Associated Diagnosis Comments ECG 12-LEAD Routine 01/01/2018 11:04 AM Coronary artery Results for this CDT disease involving procedure are in the [place] coronary results section. artery of [place] heart without angina pectoris ECG 12-LEAD Routine 06/29/2017 4:29 PM Coronary artery Results for this CHARGE AIDE disease involving procedure are in the [place] coronary results section. artery of [place] heart without angina pectoris after 04/29/2017 Results ECG 12 lead (01/01/2018 11:04 AM CDT)Only the most recent of2 resultswithin the time period is included. Ventricular rate 62 [facility] Atrial rate 62 [facility] SD interval 190 [facility] QRSD interval 146 [facility] QT interval 436 [facility] QTC interval 442 [facility] P axis 1 67 [facility] QRS axis 1 8 [facility] T wave axis 47 [facility] EKG impression Normal sinus rhythm-Possible Left atrial enlargement-Right bundle branch block-Abnormal ECG-In automated comparison with ECG of 2017 16:29,-Left anterior fascicular block is no longer present-Haritha [facility] ctronically Signed By Ainsley Hoffman ([id number]) on 01/01/2018 6:36:53 PM Performing Organization Address City/State/Zipcode Phone Number [facility] [address] [place] [address] after 04/29/2017 Insurance Payer Benefit Plan / Group Subscriber ID Type Phone Address [employer] MED[employer]ARE [employer] MEDICARE PPO/PFFS/ERS [facility] xxxxxxxxx PPO ([place]) [place] [address] Advance Directives Patient has advance care planning documents on file. For more information, please contact:Cuong [id number] [place] [address]
--- OUTSIDE RECORDS SUMMARY | 2018-04-30 17:08 | XMS REPORT | Clinical Summary ---
:1950 Author Organization [facility] Address [address] [place] [address] Care Team Providers Name Role Phone Darius [...] 03/12/2018 Orders Only General Internal Medicine after 04/29/2017 Social History Tobacco Use Types [...] Taken Blood Pressure 111/67 03/15/2018 11:28 AM [facility] Pulse 63 03/15/2018 11:28 AM [facility] Temperature 36.7 C (98.1 F) 03/15/2018 11:28 AM [facility] Respiratory Rate 18 03/15/2018 11:28 AM [facility] Oxygen Saturation 95% 03/15/2018 11:28 AM [facility] Inhaled Oxygen Concentration - - Weight 83.6 kg (184 lb 4.8 oz) 03/15/2018 4:45 AM [facility] Height 175.3 cm (5' 9") 03/12/2018 12:00 PM [facility] Body Mass Index 27.22 03/15/2018 4:45 AM [facility] Plan of Treatment Not on file Implants Implanted Type Area Oracle R12 Developer Device Shelf Model / Identifier Expiration Serial / Date Lot Device Clsr Angio-Seal Vip 6fr [id number] - [id number] Cardiovascular ST DENIZ [id number] 12/25/2018 [id number] / Implanted: Qty: 1 on 03/12/2018 by Dahlia Farley MD MED: CARDIAC / SURG [id number] [employer] N/A: [place] 10/05/2019 [id number] / Implanted: Qty: 1 on 03/12/2018 by Dahlia Farley MD Heart SCIENTIFIC / [id number] Procedures Procedure Name Priority Date/Time Associated Comments Diagnosis REPORT OF PROCEDURE - 03/16/2018 2:20 ENDOSCOPY SCAN PM [facility] CARDIAC CATH REPORT - 03/16/2018 2:20 SCAN PM [employer] ECHOCARDIOGRAM REPORT - 03/15/2018 9:50 SCAN AM [facility] ECG 12-LEAD Routine 03/15/2018 5:31 Results for this AM [facility] procedure are in the results section. CBC (HEMOGRAM ONLY) Routine 03/15/2018 4:59 Results for this AM [facility] procedure are in the results section. BASIC METABOLIC PANEL Routine 03/15/2018 4:59 Results for this (7) AM [facility] procedure are in the results section. 2D ECHO W/ DOPPLER ADAMA 03/14/2018 2:08 Results for this (CW/PW/COLOR) PM [employer] procedure are in the results section. MR SPINE CERVICAL ADAMA 03/14/2018 11:48 Results for this WITHOUT IV CONTRAST AM [facility] procedure are in the results section. CBC (HEMOGRAM ONLY) Routine 03/14/2018 4:24 Results for this AM [facility] procedure are in the results section. BASIC METABOLIC PANEL Routine 03/14/2018 4:24 Results for this (7) AM [facility] procedure are in the results section. US EXTREMITY STAT 03/13/2018 6:28 Results for this NON-VASCULAR LIMITED AM [employer] [facility] procedure are in LEFT the results section. CBC W/PLT COUNT & AUTO Routine 03/13/2018 4:16 Results for this DIFFERENTIAL AM [employer] [facility] procedure are in the results section. CBC W/PLT COUNT & AUTO Routine 03/13/2018 4:16 Results for this DIFFERENTIAL AM [facility] procedure are in the results section. BASIC METABOLIC PANEL Routine 03/13/2018 4:16 Results for this (7) AM [facility] procedure are in the results section. CBC W/PLT COUNT & AUTO Routine 03/13/2018 12:39 Results for this DIFFERENTIAL AM [facility] procedure are in the results section. TROPONIN I Routine 03/13/2018 12:39 Results for this AM [facility] procedure are in the results section. CBC W/PLT COUNT & AUTO Routine 03/13/2018 12:39 Results for this DIFFERENTIAL AM [facility] procedure are in the results section. LIPID PANEL Routine 03/13/2018 12:39 Results for this AM [facility] procedure are in the results section. MR SPINE CERVICAL STAT 03/12/2018 6:27 Results for this WITHOUT IV CONTRAST PM [facility] [employer] procedure are in the results section. CBC W/PLT COUNT & AUTO Routine 03/12/2018 3:31 Results for this DIFFERENTIAL PM [employer] [employer] procedure are in the results section. CBC W/PLT COUNT & AUTO Routine 03/12/2018 3:31 Results for this DIFFERENTIAL PM [employer] procedure are in the results section. B-TYPE NATRIURETIC Routine 03/12/2018 3:31 Results for this FACTOR (BNP) PM [employer] procedure are in the results section. TROPONIN I Routine 03/12/2018 3:31 Results for this PM [facility] procedure are in the results section. ECG 12-LEAD Routine 03/12/2018 3:13 PM [facility] Procedure Note - Interface, External Ris In - 03/12/2018 3:18 PM [facility] Ventricular Rate 69 BPM Atrial Rate 69 BPM P-R Interval 164 ms QRS Duration 158 ms Q-T Interval 434 ms QTC Calculation(Bazett) 465 ms P Franklin 53 degrees R Franklin 27 degrees T Franklin 11 degrees Normal sinus rhythm Right bundle branch block Abnormal ECG ECG 12-LEAD STAT 03/12/2018 3:13 PM Results for this [facility] [employer] procedure are in the results section. POCT-ACT Routine 03/12/2018 1:52 PM Results for this [facility] [employer] procedure are in the results section. POCT-ACT Routine 03/12/2018 1:16 PM Results for this [facility] [employer] procedure are in the results section. POCT-ACT Routine 03/12/2018 1:02 PM Results for this [facility] [employer] procedure are in the results section. L CATH & PCI 03/12/2018 11:04 AM Chest pain, [facility] unspecified type after 04/29/2017 Results EKG-SCANNED (03/16/2018 2:20 PM [facility]) Narrative Performed At CARDIAC CATH REPORT - SCAN (03/16/2018 2:20 PM [facility]) Narrative Performed At ECHOCARDIOGRAM REPORT - SCAN (03/15/2018 9:50 AM [facility]) Narrative Performed At ECG 12 lead (03/15/2018 5:31 AM [facility])Only the most recent of2 resultswithin the time period is included. Narrative Performed At Ventricular Rate 62 BPM GE MUSE Atrial Rate 62 BPM P-R Interval 192 ms QRS Duration 146 ms Q-T Interval 428 ms QTC Calculation(Bazett) 434 ms P Franklin 52 degrees R Franklin 20 degrees T Franklin 23 degrees Normal sinus rhythm Right bundle branch block Abnormal ECG When compared with ECG of 12-MAR-2018 15:13, QT has shortened Confirmed by MD SHEREEN, BUSHRA ([id number]) on 03/22/2018 5:55:25 AM Procedure Note Interface, External Ris In - 03/22/2018 5:55 AM [facility] Ventricular Rate 62 BPM Atrial Rate 62 BPM P-R Interval 192 ms QRS Duration 146 ms Q-T Interval 428 ms QTC Calculation(Bazett) 434 ms P Franklin 52 degrees R Franklin 20 degrees T Franklin 23 degrees Normal sinus rhythm Right bundle branch block Abnormal ECG When compared with ECG of 12-MAR-2018 15:13, QT has shortened Confirmed by MD SHEREEN, BUSHRA ([id number]) on 03/22/2018 5:55:25 AM Performing Organization Address City/State/Zipcode Phone Number [employer] CBC (Hemogram only) (03/15/2018 4:59 AM [facility])Only the most recent of2 resultswithin the time period is included. WBC 8.0 3.5 - 10.5 K/L [facility] RBC 3.69 (L) 4.63 - 6.08 M/L [facility] Hemoglobin 11.7 (L) 13.7 - 17.5 GM/DL [facility] Hematocrit 35.2 (L) 40.1 - 51.0 % [facility] MCV 95.4 (H) 79.0 - 92.2 fL [facility] MCH 31.7 25.7 - 32.2 pg [facility] MCHC 33.2 32.3 - 36.5 GM/DL [facility] RDW 13.5 11.6 - 14.4 % [facility] Platelets 185 150 - 450 K/CU MM [facility] MPV 9.9 9.4 - 12.4 fL [facility] nRBC 0 0 - 0 /100 WBC [facility] Specimen Blood Performing Organization Address City/[facility]/Zipcode Phone Number [facility] [address] [place] [address] [phone] CENTER Basic metabolic panel (03/15/2018 4:59 AM [facility])Only the most recent of3 resultswithin the time period is included. Sodium 135 (L) 136 - 145 meq/L [facility] Potassium 4.0 3.5 - 5.1 meq/L [facility] Chloride 106 98 - 107 meq/L [facility] CO2 25 22 - 29 meq/L [facility] BUN 13 7 - 21 mg/dL [facility] Creatinine 0.84 0.57 - 1.25 mg/dL [facility] Glucose 91 70 - 105 mg/dL [facility] Calcium 8.6 8.4 - 10.2 mg/dL [facility] EGFR 91Comment: ESTIMATED GFR IS mL/min/1.73 sq m [facility] NOT ACCURATE CREATININE [facility] CLEARANCE IN PREDICTING GLOMERULAR FILTRATION RATE. ESTIMATED GFR IS NOT APPLICABLE FOR DIALYSIS PATIENTS. Specimen Blood Narrative Performed At Please draw today if not done already. [facility] Performing Organization Address City/State/Zipcode Phone Number [facility] [address] [phone] CENTER Transthoracic 2D echo w/ doppler (cw/pw/color) (03/14/2018 2:08 PM [facility]) Ejection Fraction [facility] Narrative Performed At Transthoracic Echocardiography Report (TTE) [facility] Demographics Patient Name KEON, Date of Study 03/14/2018 ANTHONY [id number] GenderMale Visit Number [id number] RaceJosewn [id number] m Number [id number] Number Date of Birth1950 Referring Physician Imtiaz Perez Age67 year(s) Physical Therapy Nurse Alex Nick [facility] Paul Herrera MD Physician Fellow SADIA [...] External Ris In - 03/15/2018 9:10 AM [facility] Transthoracic Echocardiography Report (TTE) Demographics Patient Name KEON, Date of Study 03/14/2018 ANTHONY Gender Male Visit Number [id number] Race Unknown Room Number 1118 Number Date of 1950 Referring Physician Imtiaz Perez Age 67 year(s) Physical Therapy Nurse Alex Nick [facility] Interpreting Asael Herrera MD Physician Fellow [...] City/State/Zipcode Phone Number [facility] MR spine cervical without IV contrast (03/14/2018 11:48 AM [facility])Only the most recent of2 resultswithin the time period is included. Narrative Performed At FINAL REPORT [facility] MRI cervical spine without contrast 03/14/2018 at [...] MD Report Verified Date/Time:03/14/2018 11:49:41 Reading Location: [facility] C013 Neuro Reading Room Procedure Note Interface, External Ris In - 03/14/2018 11:51 AM [facility] FINAL REPORT MRI cervical spine without contrast [...] Report Verified Date/Time: 03/14/2018 11:49:41 Reading Location: [facility] C013V Neuro Reading Room Performing Organization Address City/State/Zipcode Phone Number [facility] US extremity non-vascular limited left (03/13/2018 6:28 AM [facility]) Narrative Performed At FINAL REPORT [facility] TECHNIQUE: Grayscale extremity ultrasound. INDICATION: Suspected hematoma or cyst. Soft mass after TPA COMPARISON: None. FINDINGS/IMPRESSION: No hematoma or fluid collection in the left wrist. Signed: Kayden Chisholm MD Report Verified Date/Time:03/13/2018 07:17:08 Reading Location: [facility] C013Y CT Body Reading Room Procedure Note Interface, External Ris In - 03/13/2018 7:19 AM [facility] FINAL REPORT TECHNIQUE: Grayscale extremity ultrasound. INDICATION: Suspected hematoma or cyst. Soft mass after TPA COMPARISON: None. FINDINGS/IMPRESSION: No hematoma or fluid collection in the left wrist. Signed: Kayden Chisholm MD Report Verified Date/Time: 03/13/2018 07:17:08 Reading Location: [facility] B1 C013Y CT Body Reading Room Performing Organization Address City/State/Zipcode Phone Number [facility] CBC with platelet count + automated diff (03/13/2018 4:16 AM [facility])Only the most recent of3 resultswithin the time period is included. WBC 13.7 (H) 3.5 - 10.5 K/L [facility] RBC 3.71 (L) 4.63 - 6.08 M/L [facility] Hemoglobin 11.8 (L) 13.7 - 17.5 GM/DL [facility] Hematocrit 35.2 (L) 40.1 - 51.0 % [facility] MCV 94.9 (H) 79.0 - 92.2 fL [facility] MCH 31.8 25.7 - 32.2 pg [facility] MCHC 33.5 32.3 - 36.5 GM/DL [facility] RDW 14.0 11.6 - 14.4 % [facility] Platelets 209 150 - 450 K/CU MM [facility] MPV 10.1 9.4 - 12.4 fL [facility] nRBC 0 0 - 0 /100 WBC [facility] % Neutros 77 % [facility] % Lymphs 15 % [facility] % Monos 7 % [facility] % Eos 0 % [facility] % Baso 0 % [facility] # Neutros 10.59 (H) 1.78 - 5.38 K/L [facility] # Lymphs 2.09 1.32 - 3.57 K/L [facility] # Monos 0.95 (H) 0.30 - 0.82 K/L [facility] # Eos 0.01 (L) 0.04 - 0.54 K/L [facility] # Baso 0.04 0.01 - 0.08 K/L [facility] Immature 0 0 - 1 % [facility] Granulocytes-[facility] Specimen Blood Performing Organization Address City/[facility]/Zipcode Phone Number [facility] [address] [place] [address] CENTER Troponin I (03/13/2018 12:39 AM [facility] [facility])Only the most recent of2 resultswithin the time period is included. Troponin I 32.23 (HH) 0.00 - 0.03 ng/mL [facility] Specimen Blood Narrative Performed At Fasting [facility] Performing Organization Address City/[facility]/Zipcode Phone Number [facility] [address] [place] [address] [phone] CENTER Lipid panel (03/13/2018 12:39 AM [employer]) Triglycerides 120 mg/dL [facility] Cholesterol 192 mg/dL [facility] HDL 40 mg/dL [facility] LDL Calculated 128 mg/dL [facility] Specimen Blood Narrative Performed At Triglyceride Reference Range: [facility] Low Risk <150 [id number] High Risk 200-499 Very High Risk>=500 Cholesterol Reference Range: Low Risk <200 [id number] High Risk>240 HDL Cholesterol Reference Range: Low Risk >=60 High Risk <40 LDL Cholesterol Reference Range: Optimal<100 Near [id number] Very High >=190 Fasting Performing Organization Address City/State/Zipcode Phone Number [address] [phone] CENTER B-type Natriuretic Factor (BNP) (03/12/2018 3:31 PM [facility]) BNP 30 0 - 100 pg/mL [facility] Specimen Blood Performing Organization Address [facility] Phone Number [address] [address] CENTER POC ACTIVATED CLOTTING TIME (03/12/2018 1:52 PM [facility])Only the most recent of3 resultswithin the time period is included. Activated Clotting Time 241Comment: TESTED AT sec [facility] [address] [place] [phone] Specimen Blood Performing Organization Address [facility] Phone Number [address] [phone] CENTER after 04/29/2017 Insurance Payer Benefit Plan / Group Subscriber ID Type Phone Address [employer] - MEDICARE MGD [employer] MEDICARE ADV xxxxxxxxx Maps Contracted CARE (Home) [place] [address] Advance Directives For more information, please contact:[address] [phone] Code Status Date Activated Date Inactivated Comments Full Code 03/12/2018 2:28 PM This code status was determined by: Patient Full Code 03/12/2018 2:28 PM 03/12/2018 2:28 PM This code status was determined by: Patient Full Code 03/12/2018 2:26 PM 03/12/2018 2:28 PM This code status was determined by: Patient
--- OUTSIDE RECORDS SUMMARY | 2018-04-30 17:10 | XMS REPORT | Continuity of Care Document ---
:1950 Author Organization Interface Problems Problem Status Onset Classification Date Comments Source Date Reported BRANCH BLOCK Active 03/05/20 [place] DX: Active 02/17/20 RADICULOPATHY, [facility] [place] LUMBAR REGION INTERLAMINAR MARC, Active 02/06/20 [facility] RT C7-T1 18 [place] UNK Active 02/06/20 [facility] 18 [place] M54.12 - Active 12/19/19 [facility] RADICULOPATHY, 18 [place] CERVICAL REGION Radiculopathy, 05/08/19 08/10/2017 [facility] lumbar region 18 [place] M25.551 - PAIN IN Active 04/02/20 [facility] RIGHT HIP 17 [place] M54.5 - LOW BACK Active 12/11/19 [facility] PAIN 17 [place] SINUS THROMBOSIS Active 08/21/[address] Cervical fusion Resolved Problem 08/10/2017 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<sup>1</s [place], up> [facility] Heart attack Resolved Problem 08/10/2017 [facility] [place],[facility] HLD - Resolved Problem 08/10/2017 [facility] Hyperlipidemia [place],[facility] Kidney calculus Resolved Problem 08/10/2017 [facility] [place],[facility] Reflux Resolved Problem 08/10/2017 [facility] [place],[facility] Skin cancer Resolved Problem 08/10/2017 OP[facility] [place],[facility] Spinal stenosis, 08/10/2017 [facility] lumbosacral [place] region Other forms of 08/10/2017 [facility] scoliosis, lumbar [place] region Osteophyte, 08/10/2017 [facility] vertebrae [place] ADMINISTRTVE Active [facility] Medications Medication Details Route Status Patient Ordering Order Source Instructions Provider Date Bacitracin / 1 appl, Route: Inactive [facility] Polymyxin B TOP, TID, Drug 2014 Medical [...] Refill(s) Ondansetron 4 mg, 2 mL, Inactive [place] Route: IVP, Drug 2014 Medical form: INJ, [...] normal saline 1,000 mL, Rate: No Longer [place] 0.9% IV 1,000 mL 75 ml/hr, Infuse Active 2014 Medical over: 13.3 hr, Center Route: IV, Dosing Weight 81.318 kg, Total Volume: 1,000, Start date: 08/23/14 12:13:00, Duration: 30 day, Stop date: 09/22/14 12:12:00 pantoprazole 40 40 mg=1 tab, PO, Active [place] mg oral enteric Daily, to be 2015 [...] Melatonin) heparin 5,000 unit, 1 No Longer [place] mL, Route: Active 2014 Medical SUB-Q, Drug Center form: INJ, Q8H, Dosing Weight 81.318, kg, Start date: 08/22/14 16:48:00, Duration: 30 day, Stop date: 09/21/14 16:00:00Notes: porcine heparin Prednisone 60 mg, 3 tab, No Longer [place] Route: PO, Drug Active 2014 Medical form: TAB, Center Daily, Dosing Weight 81.318, kg, Priority: NOW, Start date: 08/22/14 16:41:00, Duration: 30 day, Stop date: 09/21/14 9:00:00Notes: Take with food. lidocaine 1% 1 mL, Route: Inactive [place] SUB-Q, Drug 2014 Medical Form: INJ, Center Dosing Weight 81.318, kg, ONCE, STAT, Start date: 08/21/14 11:26:00, Stop date: 08/21/14 11:26:00Notes: (Same as: Xylocaine) Co-Q10 100 mg, 1 cap, No Longer [facility] Route: PO, Drug Active 2014 Medical form: CAP, Center Daily, Dosing Weight 81.318, kg, Start date: 08/21/14 9:00:00, Duration: 30 day, Stop date: 09/19/14 9:00:00Notes: Same as Co-Enzyme Q10 Lovaza 1,000 mg, 1 cap, No Longer [facility] Route: PO, Drug Active 2014 Medical Form: CAP, Center Dosing Weight 81.318, kg, BID, Start date: 08/21/14 9:00:00, Duration: 30 day, Stop date: 09/19/14 17:00:00Notes: (Same as: MaxEPA, [place] 3 fish oil ) Non-Formulary Drug Fenofibrate 135 mg, 1 cap, No Longer [facility] Route: PO, Drug Active 2014 Medical form: CAP, Center Daily, Dosing Weight 81.318, kg, Start date: 08/21/14 9:00:00, Duration: 30 day, Stop date: 09/19/14 9:00:00Notes: Same as: Trilipix Non-Formulary Dexilant 60 mg, Route: No Longer [facility] PO, Drug form: Active 2014 Medical DRC, Daily, Center Dosing Weight 81.318, kg, Start date: 08/21/14 9:00:00, Duration: 30 day, Stop date: 09/19/14 9:00:00 clopidogrel 75 mg, 1 tab, No Longer [facility] Route: PO, Drug Active 2014 Medical form: TAB, Center Daily, Dosing Weight 81.318, kg, Start date: 08/21/14 9:00:00, Duration: 30 day, Stop date: 09/19/14 9:00:00Notes: (Same As: Plavix) Aspirin 81 MG 81 mg, 1 tab, No Longer [facility] Enteric Coated Route: PO, Drug Active 2014 Medical Tablet form: ECTAB, Center Daily, Dosing Weight 81.318, kg, Start date: 08/21/14 9:00:00, Duration: 30 day, Stop date: 09/19/14 9:00:00Notes: Do not crush or chew. (Same As: Ecotrin) potassium 18 mmol, 6 mL, Inactive [place] phosphate + Route: IVPB, 2014 Medical Sodium Chloride ONCE, Dosing Center 0.9% IV 250 mL Weight 81.318, kg, Start date: 08/21/14 0:39:00, Stop date: 08/21/14 0:39:00Notes: (Same as: K Phosphate.) 1 mMol phoshate has 1.47 mEq potassium Infuse over 4 hours Benadryl 25 mg, 1 cap, No Longer [facility] Route: IVP, Drug Active 2014 Medical form: CAP, Q6H, Center Dosing Weight 81.318, kg, Start date: 08/21/14 0:00:00, Duration: 30 day, Stop date: 09/19/14 18:00:00Notes: (Same as: Benadryl) Solu-Medrol 125 mg, 2 mL, No Longer [facility] Route: IVP, Drug Active 2014 Medical form: INJ, Q6H, Center Dosing Weight 81.318, kg, Start date: 08/21/14 0:00:00, Duration: 30 day, Stop date: 09/19/14 18:00:00Notes: (Same as:Solu-MEDROL, A-Methapred) Valproic Acid 100 500 mg, 5 mL, No Longer [place] MG/ML Injectable Route: IVPB, Active 2014 Medical Solution Drug form: INJ, [place] [Depacon] Q6H, Dosing Weight 81.318, kg, Start date: 08/21/14 0:00:00, Stop date: 09/19/14 18:00:00Notes: Dilute in at least 50ml D5W or NS. Infusion rate=20 mg/min (Same As: Depacon) Protonix 40 mg, 1 tab, No Longer [place] Route: PO, Drug Active 2014 Medical form: ECTAB, Center BID, Start date: 08/20/14 22:00:00, Duration: 30 day, Stop date: 09/19/14 17:00:00Notes: Tablet should not be chewed or crushed. (Same as: Protonix) Simvastatin 20 mg, 1 tab, No Longer [facility] Route: PO, Drug Active 2014 Medical form: TAB, Center Bedtime, Dosing Weight 81.318, kg, Start date: 08/20/14 22:00:00, Duration: 30 day, Stop date: 09/19/14 21:00:00Notes: (Same as: Zocor) Lyrica 50 mg, 1 cap, No Longer [facility] Route: PO, Drug Active 2014 Medical form: CAP, BID, Center Dosing Weight 81.318, kg, Start date: 08/20/14 22:00:00, Duration: 30 day, Stop date: 09/19/14 17:00:00Notes: Same as Lyrica tramadol 50 mg, 1 tab, No Longer [place] hydrochloride 50 Route: PO, Drug Active 2014 Medical MG Oral Tablet form: TAB, Q6H, [place] [[facility]] Dosing Weight 81.318, kg, PRN Pain [...] Duration: 1 doses or times, Dose=2.2ml/kg, Max [id number]=[id number] -- "To be infused by Radiology Staff ONLY"Special Instructions: Dose=2.2ml/kg, Max gwrr=[id number] -- "To be infused by Radiology Staff ONLY" Sodium Chloride 1,000 mL, Rate: No Longer [place] 0.154 MEQ/ML 75 ml/hr, Infuse Active 2014 Medical Injectable over: 13.3 hr, Center Solution Route: IV, Dosing Weight 81.318 kg, Total Volume: 1,000, Start date: 08/20/14 20:19:00, Duration: 30 day, Stop date: 09/19/14 20:18:00 Lovaza 1,000 mg=, PO, Active [place] BID [address] [place] [address] simvastatin 20 mg 20 mg=1 tab, PO, Active [place] oral tablet Bedtime [address] [place] [address] Aspirin 81 MG 81 mg=1 tab, PO, Active [place] Enteric Coated Daily [address] [place] [address] Tablet [place] Co-Q10 100 mg 100 mg=1 cap, Active [place] oral capsule PO, Daily [address] [place] [address] dexlansoprazole 60 mg=1 cap, PO, No Longer [place] 60 MG Enteric Daily Active 2014 Medical Coated Capsule Center [Dexilant] fenofibric acid 135 mg=1 cap, Active [place] 135 mg oral PO, Daily 2014 [facility] delayed release Center capsule tramadol 50 mg=1 tab, PO, Active [place] hydrochloride 50 Q4H, PRN Pain 2014 Medical MG Oral Tablet [place] clopidogrel 75 mg 75 mg=1 tab, PO, Active [facility] oral tablet Daily 2014 [facility] pregabalin 50 MG 50 mg=1 cap, PO, Active [facility] Oral Capsule BID, 0 Refill(s) 2014 Medical [Lyrica] Center Sodium Chloride 1,000 mL, 1,000 Inactive [facility] 0.154 MEQ/ML ml/hr, Infuse 2014 [facility] Injectable Over: 1 hr, [place] Solution Route: IV, 1,000, Drug form: INJ, ONCE, Priority: STAT, Dosing Weight 81.318 kg, Start date: 08/20/14 20:00:00, Duration: 1 doses or times, Stop date: 08/20/14 20:00:00 Magnesium Sulfate 2 gm, 50 mL, Inactive [facility] Route: IVPB, 2014 Medical Drug form: INJ, [...] no surgery 02/19 - lumbar wo - [facility] CT Comparison: MRI lumbar spine done on [...] WITHOUT CONTRAST 01/15 [facility] cervical cervical - [facility] contrast CT contrast CT DATE: 01/15/2018 [...] WITHOUT CONTRAST 12/25 [facility] cervical cervical - [facility] contrast MRI contrast MRI DATE: 12/25/2017 [...] without significant spinal canal stenosis. There is [id number] left neural foramina narrowing from uncovertebral and [...] sac without significant spi nal canal stenosis. [id number] bilateral neural foramina stenosis from uncovertebral and [...] 05/04 - [facility] lumbar wo wo - [place] contrast MRI This report was dictated by a Contact Worker/ Fellow. 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 Read by: Juan Romano MD Dictated Date/time: [...] 12/10/2016 12:13 PM CDT Read by: Asael iFelds MD Dictated Date/time: 12/10/16 13:41 Electronically Signed [...] - [facility] Views Bilateral DX /2016 - [place] Bilateral DX DATE: 12/10/2016 12:14 PM CDT [...] 12/10 - [facility] cervical cervical /2016 - [place] comp w comp w obl-flx/ex obl-flx/ext t DX DX DATE: 12/10/2016 12:13 PM CDT Read by: Asael Fields MD Dictated Date/time: 12/10/16 13:45 Electronically Signed [...] Phosphorus 2.4 mg/dL 2.5 - 4.5 08/24 [facility] /2014 [facility] CHEM PANEL eGFR 71 08/24 1Result Comment: The eGFR is calculated using the CKD-EPI formula. In most young, healthy individuals the eGFR will be >90 mL/ min/1.73m2. The eGFR declines with age. An eGFR of 60-89 may be normal in [facility] mL/min/1. /2014 some populations, particularly the elderly, for whom the CKD-EPI formula has not been extensively validated. Use of the eGFR is not recommended in the following populations: [address] Individuals with unstable creatinine concentrations, including [...] Lvl 104 meq/L 95 - 109 08/24 [facility] CHEM PANEL Potassium 4.7 meq/L 3.5 - 5.1 08/24 [facility] CHEM PANEL CO2 29 meq/L 24 - 32 08/24 [facility] CHEM PANEL Calcium Lvl 9.0 mg/dL 8.5 - 10.5 08/24 [facility] CHEM PANEL Glucose Lvl 98 mg/dL 70 - 99 08/24 4Interpretive Data: Adult reference range values reflect the clinical guidelines of the [place] [employer]. [facility] CHEM PANEL BUN 21 mg/dL 7 - 22 08/24 [facility] CHEM PANEL Sodium Lvl 137 meq/L 135 - 145 08/24 [facility] CHEM PANEL Creatinine 1.1 mg/dL 0.5 - 1.4 08/24 [facility] CHEM PANEL AGAP 8.7 meq/L 10.0 - 08/24 20. [facility] CHEM PANEL Magnesium 2.4 mg/dL 1.8 - 2.4 08/24 [facility] HEMATOLOGY PTT 27.5 s 22.9 - 08/24 12Interpretiv [facility] 35.8 2015 e Data: [facility] Therapeutic Range: 57 - 92 Seconds HEMATOLOGY PT 13.4 s 12.0 - 08/24 [facility] 14.7 [facility] HEMATOLOGY INR 1.02 0.85 - 08/24 9Interpretive Data: RECOMMENDED RANGES FOR PROTIME INR: [facility] . 2.0-3.0 for most medical and surgical thromboembolic states. Medical 2.5-3.5 for artificial heart valves and recurrent embolism. Center INR SHOULD BE USED ONLY FOR PATIENTS ON STABLE ANTICOAGULANT THERAPY. HEMATOLOGY MCV 92.8 fL 80.0 - 08/24 94.0 [facility] HEMATOLOGY Hct 37.7 % 42.0 - 08/24 54.0 [facility] HEMATOLOGY MPV 7.7 fL 7.4 - 10.4 08/24 [facility] HEMATOLOGY Platelet 325 K/CMM 133 - 450 08/24 [facility] HEMATOLOGY Hgb 12.5 g/dL 14.0 - 08/24 [facility] 18.0 [facility] HEMATOLOGY RBC 4.06 M/CMM 4.70 - 08/24 6.10 [facility] HEMATOLOGY WBC 14.6 K/CMM 3.7 - 10.4 08/24 [facility] HEMATOLOGY RDW 13.5 % 11.5 - 08/24 14.5 [facility] HEMATOLOGY MCHC 33.0 g/dL 32.0 - 08/24 36.0 [facility] HEMATOLOGY MCH 30.7 pg 27.0 - 08/24 31.0 [facility] HEMATOLOGY Basophils # 0.1 K/CMM 0.0 - 0.2 08/24 [facility] HEMATOLOGY Eosinophils 0.2 K/CMM 0.0 - 0.5 08/24 [facility] HEMATOLOGY Lymphocytes 1.5 K/CMM 1.0 - 5.5 08/24 [facility] HEMATOLOGY Segs-Bands # 11.5 K/CMM 1.5 - 8.1 08/24 [facility] HEMATOLOGY Basophils 0.3 % 0.0 - 1.0 08/24 [facility] HEMATOLOGY Monocytes # 1.4 K/CMM 0.0 - 0.8 08/24 [facility] HEMATOLOGY Monocytes 9.3 % 2.0 - 12.0 08/24 [facility] HEMATOLOGY Eosinophils 1.2 % 0.0 - 4.0 08/24 [facility] HEMATOLOGY Lymphocytes 10.5 % 20.0 - 08/24 40.0 [facility] HEMATOLOGY Segs 78.7 % 45.0 - 08/24 75.0 [facility] PARATHYROI Ca Norm WB 1.10 1.05 - 08/24 [facility] D PROFILE mMol/L . [facility] PARATHYROI Ca Ion WB 1.13 1. - 08/24 [facility] D PROFILE mMol/L 05.21 [facility] CHEM PANEL Phosphorus 2.2 mg/dL 2.5 - 4.5 08/23 [facility] CHEM PANEL Magnesium 2.1 mg/dL 1.8 - 2.4 08/23 [facility] Lvl [facility] CHEM PANEL eGFR 80 08/23 2Result Comment: The eGFR is calculated using the CKD-EPI formula. In most young, healthy individuals the eGFR will be >90 mL/ min/1.73m2. The eGFR declines with age. An eGFR of 60-89 may be normal in [facility] mL/min/1. some populations, particularly the elderly, for whom the CKD-EPI formula has not been extensively validated. Use of the eGFR is not recommended in the following populations: [place] [address] Center Individuals with unstable creatinine concentrations, including [...] values reflect the clinical guidelines of the [place] [employer]. [facility] CHEM PANEL Potassium 4.1 meq/L 3.5 - 5.1 08/23 [facility] CHEM PANEL Sodium Lvl 138 meq/L 135 - 145 08/23 [facility] CHEM PANEL CO2 24 meq/L 24 - 32 08/23 2014 [facility] CHEM PANEL Chloride Lvl 106 meq/L 95 - 109 08/23 [facility] CHEM PANEL Calcium Lvl 9.0 mg/dL 8.5 - 10.5 08/23 [facility] CHEM PANEL Creatinine 1.0 mg/dL 0.5 - 1.4 08/23 [facility] CHEM PANEL BUN 16 mg/dL 7 - 22 08/23 [facility] CHEM PANEL AGAP 12.1 meq/L 10.0 - 08/23 [facility] 20.0 [facility] PARATHYROI Ca Norm WB 1.17 . - 08/23 [facility] D PROFILE mMol/L . [facility] PARATHYROI Ca Ion WB 1.15 . - 08/23 [facility] D PROFILE mMol/L 1. [facility] PARATHYROI Ca Ion WB 1.13 1. - 08/23 [facility] D PROFILE mMol/L 1. [facility] PARATHYROI Ca Norm WB 1.13 1. - 08/23 [facility] D PROFILE mMol/L 1. [facility] CHEM PANEL eGFR 71 08/23 3Result Comment: The eGFR is calculated using the CKD-EPI formula. In most young, healthy individuals the eGFR will be >90 mL/ min/1.73m2. The eGFR declines with age. An eGFR of 60-89 may be normal in [facility] mL/min/1. some populations, particularly the elderly, for whom the CKD-EPI formula has not been extensively validated. Use of the eGFR is not recommended in the following populations: [address] Individuals with unstable creatinine concentrations, including [...] Lvl 106 meq/L 95 - 109 08/23 [facility] CHEM PANEL CO2 15 meq/L 24 - 32 08/23 [facility] CHEM PANEL Potassium 4.7 meq/L 3.5 - 5.1 08/23 [facility] CHEM PANEL Glucose Lvl 92 mg/dL 70 - 99 08/23 6Interpretive Data: Adult reference range values reflect the clinical guidelines of the [place] [employer]. [facility] CHEM PANEL BUN 10 mg/dL 7 - 22 08/23 [facility] CHEM PANEL Creatinine 1.1 mg/dL 0.5 - 1.4 08/23 [facility] CHEM PANEL Sodium Lvl 137 meq/L 135 - 145 08/23 [facility] CHEM PANEL AGAP 20.7 meq/L 10.0 - 08/23 [facility] . [facility] CHEM PANEL Calcium Lvl <5.0 mg/dL 8.5 - 10.5 08/23 7Result Comment: [facility] Result(s) called to alli reeves at 08/23/2014 05:06 by arielle. Read back OK. Analysis repeated. CHEM PANEL Magnesium 1.6 mg/dL 1.8 - 2.4 08/23 [facility] CHEM PANEL Phosphorus 2.0 mg/dL 2.5 - 4.5 08/23 [facility] HEMATOLOGY Sed Rate 32 mm/h 0 - 15 08/23 [facility] HEMATOLOGY WBC 14.6 K/CMM 3.7 - 10.4 08/23 [facility] HEMATOLOGY Hgb 13.4 g/dL 14.0 - 08/23 18.0 [facility] HEMATOLOGY RBC 4.30 M/CMM 4.70 - 08/23 6.10 [facility] HEMATOLOGY MCV 92.2 fL 80.0 - 08/23 94.0 [facility] HEMATOLOGY Hct 39.7 % 42.0 - 08/23 54.0 [facility] HEMATOLOGY MCH 31.1 pg 27.0 - 08/23 31.0 [facility] HEMATOLOGY RDW 13.5 % 11.5 - 08/23 14. [facility] HEMATOLOGY MCHC 33.8 g/dL 32.0 - 08/23 36.0 [facility] HEMATOLOGY MPV 7.7 fL 7.4 - 10.4 08/23 [facility] HEMATOLOGY Platelet 336 K/CMM 133 - 450 08/23 [facility] HEMATOLOGY PT 13.3 s 12.0 - 08/23 14.7 [facility] HEMATOLOGY PTT 28.2 s 22.9 - 08/23 13Interpretiv [facility] 35.8 e Data: [facility] Therapeutic Range: 57 - 92 Seconds HEMATOLOGY INR 1.01 0.85 - 08/23 10Interpretive Data: RECOMMENDED RANGES FOR PROTIME INR: [facility] 1. 2.0-3.0 for most medical and surgical thromboembolic states. Medical 2.5-3.5 for artificial heart valves and recurrent embolism. Center INR SHOULD BE USED ONLY FOR PATIENTS ON STABLE ANTICOAGULANT THERAPY. HEMATOLOGY Lymphocytes 0.7 K/CMM 1.0 - 5.5 08/23 [facility] HEMATOLOGY Monocytes # 0.4 K/CMM 0.0 - 0.8 08/23 [facility] HEMATOLOGY Basophils 0.1 % 0.0 - 1.0 08/23 [facility] HEMATOLOGY Segs-Bands # 13.4 K/CMM 1.5 - 8.1 08/23 [facility] HEMATOLOGY Lymphocytes 4.9 % 20.0 - 08/23 40.0 [facility] HEMATOLOGY Segs 92.2 % 45.0 - 08/23 75.0 [facility] HEMATOLOGY Monocytes 2.8 % 2.0 - 12.0 08/23 [facility] IMMUNOLOGY C-REACTIVE 26.6 mg/L <=2.9 mg/L 08/23 8Result [facility] Comment: Medical Collection Center date/time has been modified to: 03:21:00. Previous collection date/time: 14:57:00. HEMATOLOGY Sed Rate 31 mm/h 0 - 15 08/22 [facility] HEMATOLOGY Lymphocytes 0.9 K/CMM 1.0 - 5.5 08/22 [facility] # /2014 [facility] HEMATOLOGY Monocytes # 1.2 K/CMM 0.0 - 0.8 08/22 /2014 [facility] HEMATOLOGY Segs-Bands # 16.2 K/CMM 1.5 - 8.1 08/22 [facility] HEMATOLOGY Basophils 0.2 % 0.0 - 1.0 08/22 [facility] HEMATOLOGY Segs 88.4 % 45.0 - 08/22 [facility] 75.0 [facility] HEMATOLOGY Lymphocytes 5.1 % 20.0 - 08/22 [facility] 40.0 [facility] HEMATOLOGY Monocytes 6.3 % 2.0 - 12.0 08/22 [facility] HEMATOLOGY INR 1.02 0.85 - 08/22 11Interpretive Data: RECOMMENDED RANGES FOR PROTIME INR: [facility] 1.17 2.0-3.0 for most medical and surgical thromboembolic states. Medical 2.5-3.5 for artificial heart valves and recurrent embolism. Center INR SHOULD BE USED ONLY FOR PATIENTS ON STABLE ANTICOAGULANT THERAPY. HEMATOLOGY PTT 24.9 s 22.9 - 08/22 14Interpretiv [facility] 35.8 /2015 e Data: [facility] Therapeutic Range: 57 - 92 Seconds HEMATOLOGY PT 13.4 s 12.0 - 08/22 [facility] 14.7 [facility] HEMATOLOGY MPV 7.1 fL 7.4 - 10.4 08/22 [facility] HEMATOLOGY Platelet 328 K/CMM 133 - 450 08/22 [facility] HEMATOLOGY MCH 31.0 pg 27.0 - 08/22 [place] 31.0 /2014 [facility] HEMATOLOGY RDW 13.2 % 11.5 - 08/22 [place] 14.5 /2014 [facility] HEMATOLOGY Hct 40.0 % 42.0 - 08/22 [place] 54.0 /2014 [facility] HEMATOLOGY MCV 91.9 fL 80.0 - 08/22 [place] 94.0 /2014 [facility] HEMATOLOGY Hgb 13.5 g/dL 14.0 - 08/22 [place] 18.0 /2014 [facility] HEMATOLOGY MCHC 33.8 g/dL 32.0 - 08/22 [place] 36.0 /2014 [facility] HEMATOLOGY RBC 4.35 M/CMM 4.70 - 08/22 [place] 6.10 /2014 [facility] HEMATOLOGY WBC 18.3 K/CMM 3.7 - 10.4 08/22 [facility] BODY WBC CSF 1 /mm3 0 - 53 08/21 /2014 [facility] BODY Supernat CSF Colorless Colorless 08/21 Medical (08/21/14 3:29 PM) Center BODY RBC CSF 157 /mm3 0 - 03 08/21 [facility] BODY Clarity CSF Clear Clear 08/21 Medical (08/21/14 3:29 PM) Center BODY Comment CSF Differenti 08/21 [place] FLUIDS al Medical performed Center on WBC count of less than 5. BODY Color CSF Colorless Colorless 08/21 Medical (08/21/14 3:29 PM) Center BODY Tube Num CSF 4 08/21 [facility] BODY Glucose CSF 82 mg/dL 45 - 80 08/21 [facility] Center BODY Protein CSF 35 mg/dL 15 - 45 08/21 FLUIDS [facility] BODY Tube Num CSF 1 08/21 [facility] BODY Color CSF Colorless Colorless 08/21 FLUIDS Medical (08/21/14 3:29 PM) Center BODY Clarity CSF Clear Clear 08/21 FLUIDS Medical (08/21/14 3:29 PM) Center BODY Supernat CSF Colorless Colorless 08/21 Medical (08/21/14 3:29 PM) Center BODY Comment CSF Differenti 08/21 [place] FLUIDS al Medical performed Center on WBC count of less than 5. BODY RBC CSF 54 /mm3 0 - 03 08/21 [facility] FLUIDS Medical Center BODY WBC CSF 1 /mm3 0 - 53 08/21 [facility] FLUIDS [facility] FUNGAL - Crypto Ag Negative Negative 08/21 [facility] SEROLOGY CSF /2014 Medical (08/21/14 3:29 PM) Center IMMUNOLOGY VDRL Scr CSF Non Reactive Non 08/21 [facility] Reactive Medical (08/21/14 3:29 PM) Center MOLECULAR Source HSV Cerebral 08/21 [facility] DIAGNOSTIC Spinal /2014 Medical Fluid Center MOLECULAR HSV 1 by PCR Not Performed 15 Negative 08/21 15Result [facility] Comment: CSF Medical (08/21/14 3:29 PM) contains less Center than 5 WBC'S and has a normal Protein level. MOLECULAR HSV 2 by PCR Not Performed 16, 17 Negative 08/21 17Interpretive Data: All results should be used as an aid in diagnosis and used in correlation with clinical findings and patient symptoms. A negative result does not rule out the presence of Herpes Simpl [facility] ex Virus. The specimen may contain HSV below the detectable limits of the assay. An indeterminate result will be obtained if inhibitors of PCR are present. [facility] (08/21/14 3:29 PM) [place] The test is performed using Analyte Specific Reagents (ASRs) for Real-Time nucleic acid amplification (PCR) from [employer] The performance characteristics of this assay were validated by [facility] within [facility]. The [facility] is authorized under the Clinical Improvement Amendments of 1988 (CLIA-88) to perform high-co mplexity testing. This test has not been cleared by the U.S. Food and Drug Administration (FDA). However, FDA approval is not required and the use should not be considered investigational or research. VIRAL - Enterovirus Negative 18 Negative 08/21 18Interpretive Data: Interpretation: [facility] SEROLOGY PCR Negative.....No enterovirus DNA detected by PCR [facility] (08/21/14 3:29 PM) Positive.....Enterovirus DNA detected by PCR Center Assay Limitations: A negative result does not rule out the presence of PCR inhibitors in the patient specimen or Enterovirus nucleic acid in concentrations below the level of detection of the assay. HEMATOLOGY Sed Rate 61 mm/h 0 - 15 08/21 [facility] IMMUNOLOGY C-REACTIVE 81.7 mg/L <=2.9 mg/L 08/21 [facility] PROTEIN [facility] IMMUNOLOGY C-REACTIVE 86.1 mg/L <=2.9 mg/L 08/21 [facility] PROTEIN [facility] HEMATOLOGY Eosinophils 0.1 % 0.0 - 4.0 08/21 [facility] LIPIDS VLDL 27 08/21 [facility] LIPIDS HDL 51 mg/dL >=61 mg/dL 08/21 [facility] LIPIDS LDL 105 mg/dL <=99 mg/dL 08/21 [facility] (Calculated) [facility] LIPIDS CHD Risk 3.59 4.00 - 08/21 [place] 7.30 [facility] LIPIDS Trig 134 mg/dL <=149 08/21 [facility] mg/dL [facility] LIPIDS Chol 183 mg/dL <=199 08/21 [facility] mg/dL [facility] SPECIAL Hgb A1C 5.7 % <=5.6 % 08/21 [facility] CHEMISTRY [facility] URINE AND UA WBC null 0 - 5 08/21 [facility] STOOL [facility] URINE AND UA <=1.0 0.1 - 1.0 08/[address] [facility] Urobilinogen mg/dL [facility] URINE AND UA Color Light Yellow Yellow 08/21 [facility] *NA* Center (08/20/14 10:52 PM) URINE AND UA Turbidity Clear Clear 08/21 [facility] (08/20/14 10:52 PM) Center URINE AND UA Spec Grav 1.022 <=1.030 08/21 [facility] STOOL [facility] URINE AND UA Protein Negative Negative 08/21 [facility] STOOL mg/dL mg/dL [facility] URINE AND UA pH 7.0 5.0 - 8.0 08/21 [facility] STOOL [facility] URINE AND UA Ketones Negative Negative 08/21 [facility] STOOL mg/dL mg/dL [facility] URINE AND UA Glucose Negative Negative 08/21 [facility] STOOL mg/dL mg/dL [facility] URINE AND UA Bili Negative Negative 08/21 [facility] Medical *NA* Center (08/20/14 10:52 PM) URINE AND UA Blood Small Negative 08/21 Medical *ABN* Center (08/20/14 10:52 PM) URINE AND UA Sq Epi Occasional Few /LPF 08/21 [facility] STOOL /LPF /2014 [facility] URINE AND UA Nitrite Negative Negative 08/[address] [facility] (08/20/14 10:52 PM) [place] URINE AND UA Leuk Est Negative Negative 08/[address] [facility] (08/20/14 10:52 PM) [place] CHEM PANEL AST 38 unit/L 0 - 37 08/[address] CHEM PANEL ALT 57 unit/L 0 - 65 08/[address] CHEM PANEL Bili Total 0.8 mg/dL 0.2 - 1.3 08/[address] CHEM PANEL Alk Phos 83 unit/L 39 - 136 08/[address] CHEM PANEL A/G Ratio 0.7 0.7 - 1.6 08/[address] CHEM PANEL Total 7.2 g/dL 6.4 - 8.4 08/21 [facility] 2014 [facility] CHEM PANEL B/C Ratio 13 6 - 25 08/[address] CHEM PANEL Globulin 4.3 g/dL 2.0 - 4.0 08/[address] CHEM PANEL Albumin Lvl 2.9 g/dL 3.5 - 5.0 08/[address] HEMATOLOGY Eosinophils 5.3 % 0.0 - 4.0 08/[address] HEMATOLOGY Eosinophils 0.6 K/CMM 0.0 - 0.5 08/21 [facility] HEMATOLOGY Basophils # 0.1 K/CMM 0.0 - 0.2 08/[address] Vital Signs Vital Sign Value Date Comments Source Respitory Rate 16 08/24/2014 [facility] Heart Rate 88 08/24/2014 [facility] Systolic (mm Hg) 113 08/24/2014 [facility] Diastolic (mm Hg) 69 08/24/2014 [facility] Temperature Oral (F) 98.3 F 08/24/2014 [facility] Systolic (mm Hg) 108 08/24/2014 [facility] Diastolic (mm Hg) 65 08/24/2014 [facility] Respitory Rate 18 08/24/2014 [facility] Heart Rate 57 08/24/2014 [facility] Temperature Oral (F) 98.2 F 08/24/2014 [facility] Temperature Oral (F) 98.9 F 08/24/2014 [facility] Systolic (mm Hg) 107 08/24/2014 [facility] Diastolic (mm Hg) 64 08/24/2014 [facility] Respitory Rate 18 08/24/2014 [facility] Heart Rate 59 08/24/2014 [facility] Weight 81.318 08/20/2014 [facility] Height 177.8 cm 08/20/2014 [facility] BMI Calculated 25.72 08/20/2014 [facility] Encounters Location Location Encounter Encounter Reason Attending ADM DC Status Source Details Type Number For Provider Date Date Visit [facility] [id number] [facility] 08/20 08/24 [facility] Outpt Diag [id number] [facility] 12/10 12/11 [facility] [place] [facility] Outpt Diag [id number] [facility] 04/02 04/03 [facility] [place] [facility] [place] [facility] Outpt Diag [id number] [facility] 05/04 05/05 [facility] [id number] [place] 01/05 [facility] [place] [facility] [id number] [facility] 02/01 Active [facility] [place] [facility] [id number] [place] [facility] [place] [facility] [id number] [facility] 02/16 Active [facility] [place] [facility] [id number] [facility] 03/03 Active [facility] [id number] [facility] 03/11 Active [facility] [id number] [place] 03/16 [facility] [id number] [facility] 03/24 Active [facility] [id number] [place] 03/30 Active [facility] [id number] [facility] 04/28 Active [facility] [id number] [facility] 04/28 Active [facility] /2019 [facility] Procedures Procedure Code Date Perfomer Comments Source Arthroscopy of knee [id number] [facility] Cardiac [id number] WITH STENT [facility] catheterization of PLACEMENT [place] right and left heart for ventriculography<sup> 1</sup> Cholecystectomy [id number] [facility] Excision of calcaneal [id number] SHOULDER [facility] spur<sup>2</sup> [place] Excision of lesion of [id number] SKIN CANCER [facility] skin<sup>3</sup> [place] Arthroscopy of knee [id number] [facility] Cardiac [id number] 1WITH STENT [facility] catheterization of PLACEMENT [facility] right and left heart Center for ventriculography<sup> 1</sup> Cholecystectomy [id number] [facility] Excision of calcaneal [id number] 2SHOULDER [facility] spur<sup>2</sup> [facility] Excision of lesion of [id number] 3SKIN CANCER [facility] skin<sup>3</sup> [facility]
--- OUTSIDE RECORDS SUMMARY | 2018-04-30 17:11 | XMS REPORT ---
:1950 Author Organization [facility] Address [address] [place] [address] Care Team Providers Name Role Phone SHERIE [...] Comments SODIUM (BEAKER) (test 135 meq/L 136-145 oaed=809) POTASSIUM (BEAKER) (test 4.0 meq/L 3.5-5.1 seen=650) CHLORIDE (BEAKER) (test 106 meq/L 98-107 xnsh=371) CO2 (BEAKER) (test ovak=863) 25 meq/L 22-29 BLOOD UREA NITROGEN (BEAKER) 13 mg/dL 7-21 (test itle=009) CREATININE (BEAKER) (test 0.84 mg/dL 0.57-1.25 ymgx=408) GLUCOSE RANDOM (BEAKER) 91 mg/dL 70-105 (test lqyw=857) CALCIUM (BEAKER) (test 8.6 mg/dL 8.4-10.2 ppea=077) EGFR (BEAKER) (test 91 mL/min/1.73 sq m ESTIMATED GFR IS NOT mgsk=1783) ACCURATE CREATININE CLEARANCE IN PREDICTING GLOMERULAR FILTRATION RATE. ESTIMATED GFR IS NOT APPLICABLE FOR DIALYSIS PATIENTS. Please draw today if not done already.CBC (HEMOGRAM ONLY)2018-03-15 05:42:00 Test Item Value Reference Range Comments WHITE BLOOD CELL COUNT (BEAKER) (test plqw=534) 8.0 K/ L 3.5-10.5 RED BLOOD CELL COUNT (BEAKER) (test tpuo=355) 3.69 M/ L 4.63-6.08 HEMOGLOBIN (BEAKER) (test shaz=701) 11.7 GM/DL 13.7-17.5 HEMATOCRIT (BEAKER) (test zqqk=060) 35.2 % 40.1-51.0 MEAN CORPUSCULAR VOLUME (BEAKER) (test comz=844) 95.4 fL 79.0-92.2 MEAN CORPUSCULAR HEMOGLOBIN (BEAKER) (test 31.7 pg 25.7-32.2 njoh=005) MEAN CORPUSCULAR HEMOGLOBIN CONC (BEAKER) (test 33.2 GM/DL 32.3-36.5 vuid=424) RED CELL DISTRIBUTION WIDTH (BEAKER) (test 13.5 % 11.6-14.4 hoyt=108) PLATELET COUNT (BEAKER) (test wotg=687) 185 K/CU MM 150-450 MEAN PLATELET VOLUME (BEAKER) (test qquo=920) 9.9 fL 9.4-12.4 NUCLEATED RED BLOOD CELLS (BEAKER) (test 0 /100 WBC 0-0 ogly=196) MR, SPINE, CERVICAL, WITHOUT [id number] 11:49:00FINAL REPORT MRI cervical spine without contrast [...] MDReport Verified Date/Time: 03/14/2018 11:49:41 Reading Location: [facility] C013V Neuro Reading Room Electronically signed by: LAVELLE DAVIDSON M.D.on 03/14/2018 11:49 AMBASIC METABOLIC [id number] 04:54:00 Test Item Value Reference Range Comments SODIUM (BEAKER) (test 138 meq/L 136-145 jpeu=218) POTASSIUM (BEAKER) (test 4.3 meq/L 3.5-5.1 giza=645) CHLORIDE (BEAKER) (test 106 meq/L 98-107 qxxi=060) CO2 (BEAKER) (test 30 meq/L 22-29 vlsr=261) BLOOD UREA NITROGEN 14 mg/dL 7-21 (BEAKER) (test idbm=176) CREATININE (BEAKER) (test 0.96 mg/dL 0.57-1.25 wdti=867) GLUCOSE RANDOM (BEAKER) 91 mg/dL 70-105 (test dbqo=678) CALCIUM (BEAKER) (test 8.6 mg/dL 8.4-10.2 evrb=669) EGFR (BEAKER) (test 78 mL/min/1.73 sq m ESTIMATED GFR IS NOT nusr=3574) ACCURATE CREATININE CLEARANCE IN PREDICTING GLOMERULAR FILTRATION RATE. ESTIMATED GFR IS NOT APPLICABLE FOR DIALYSIS PATIENTS. Please draw today if not done already.CBC (HEMOGRAM ONLY)2018-03-14 04:33:00 Test Item Value Reference Range Comments WHITE BLOOD CELL COUNT (BEAKER) (test htwn=960) 9.7 K/ L 3.5-10.5 RED BLOOD CELL COUNT (BEAKER) (test hxwj=729) 3.55 M/ L 4.63-6.08 HEMOGLOBIN (BEAKER) (test mrsa=170) 11.3 GM/DL 13.7-17.5 HEMATOCRIT (BEAKER) (test sumy=538) 34.0 % 40.1-51.0 MEAN CORPUSCULAR VOLUME (BEAKER) (test qrnv=783) 95.8 fL 79.0-92.2 MEAN CORPUSCULAR HEMOGLOBIN (BEAKER) (test 31.8 pg 25.7-32.2 xyay=338) MEAN CORPUSCULAR HEMOGLOBIN CONC (BEAKER) (test 33.2 GM/DL 32.3-36.5 bmsz=312) RED CELL DISTRIBUTION WIDTH (BEAKER) (test 14.1 % 11.6-14.4 rsdu=538) PLATELET COUNT (BEAKER) (test agcv=699) 197 K/CU MM 150-450 MEAN PLATELET VOLUME (BEAKER) (test xayn=427) 10.1 fL 9.4-12.4 NUCLEATED RED BLOOD CELLS (BEAKER) (test 0 /100 WBC 0-0 edmk=633) U/S, EXTREMITY (NON-VASCULAR), LEFT, [id number] 07:17:00Reason for exam:- >Ultrasound of left dorsal hand/wrist, suspect hematoma/cyst. patient with soft mass post systemic TPAFINAL REPORT TECHNIQUE: Grayscale extremity ultrasound. INDICATION: Suspectedhematoma or cyst. Soft mass after TPA COMPARISON: None. FINDINGS/IMPRESSION: No hematoma or fluid collection in the left wrist. Signed: Kayden Chisholm MDReport Verified Date/Time: 03/13/2018 07:17:08 Reading Location: [facility] C013Y CT Body Reading Room BASIC METABOLIC [id number] 06:01:00 Test Item Value Reference Range Comments SODIUM (BEAKER) (test 137 meq/L 136-145 fvhk=782) POTASSIUM (BEAKER) (test 4.4 meq/L 3.5-5.1 wavv=263) CHLORIDE (BEAKER) (test 105 meq/L 98-107 lazl=701) CO2 (BEAKER) (test 28 meq/L 22-29 yddu=212) BLOOD UREA NITROGEN 13 mg/dL 7-21 (BEAKER) (test svol=090) CREATININE (BEAKER) (test 0.99 mg/dL 0.57-1.25 ktuf=598) GLUCOSE RANDOM (BEAKER) 113 mg/dL 70-105 (test ilaa=014) CALCIUM (BEAKER) (test 8.6 mg/dL 8.4-10.2 gxot=648) EGFR (BEAKER) (test 76 mL/min/1.73 sq m ESTIMATED GFR IS NOT bnmz=9532) ACCURATE CREATININE CLEARANCE IN PREDICTING GLOMERULAR FILTRATION RATE. ESTIMATED GFR IS NOT APPLICABLE FOR DIALYSIS PATIENTS. Please draw today if not done already.CBC W/PLT COUNT & AUTO [id number] 04:56:00 Test Item Value Reference Range Comments WHITE BLOOD CELL COUNT (BEAKER) (test tvrx=033) 13.7 K/ L 3.5-10.5 RED BLOOD CELL COUNT (BEAKER) (test ylag=618) 3.71 M/ L 4.63-6.08 HEMOGLOBIN (BEAKER) (test uzbv=035) 11.8 GM/DL 13.7-17.5 HEMATOCRIT (BEAKER) (test itsa=224) 35.2 % 40.1-51.0 MEAN CORPUSCULAR VOLUME (BEAKER) (test warl=578) 94.9 fL 79.0-92.2 MEAN CORPUSCULAR HEMOGLOBIN (BEAKER) (test 31.8 pg 25.7-32.2 mwzw=904) MEAN CORPUSCULAR HEMOGLOBIN CONC (BEAKER) (test 33.5 GM/DL 32.3-36.5 lhpo=550) RED CELL DISTRIBUTION WIDTH (BEAKER) (test 14.0 % 11.6-14.4 iynq=175) PLATELET COUNT (BEAKER) (test pqle=895) 209 K/CU MM 150-450 MEAN PLATELET VOLUME (BEAKER) (test sueb=140) 10.1 fL 9.4-12.4 NUCLEATED RED BLOOD CELLS (BEAKER) (test 0 /100 WBC 0-0 subi=840) NEUTROPHILS RELATIVE PERCENT (BEAKER) (test 77 % qksk=387) LYMPHOCYTES RELATIVE PERCENT (BEAKER) (test 15 % xrau=680) MONOCYTES RELATIVE PERCENT (BEAKER) (test 7 % qhds=802) EOSINOPHILS RELATIVE PERCENT (BEAKER) (test 0 % jjuv=654) BASOPHILS RELATIVE PERCENT (BEAKER) (test 0 % gkrj=674) NEUTROPHILS ABSOLUTE COUNT (BEAKER) (test 10.59 K/ L 1.78-5.38 qmiw=488) LYMPHOCYTES ABSOLUTE COUNT (BEAKER) (test 2.09 K/ L 1.32-3.57 nyqz=046) MONOCYTES ABSOLUTE COUNT (BEAKER) (test 0.95 K/ L 0.30-0.82 pmja=735) EOSINOPHILS ABSOLUTE COUNT (BEAKER) (test 0.01 K/ L 0.04-0.54 hgzc=474) BASOPHILS ABSOLUTE COUNT (BEAKER) (test 0.04 K/ L 0.01-0.08 jijo=021) IMMATURE GRANULOCYTES-RELATIVE PERCENT (BEAKER) 0 % 0-1 (test nyjw=3075) TROPONIN [id number] 01:41:00 Test Item Value Reference Range Comments TROPONIN I (BEAKER) (test ypox=821) 32.23 ng/mL 0.00-0.03 FastingLIPID [id number] 01:29:00 Test Item Value Reference Range Comments TRIGLYCERIDES (BEAKER) (test oqvr=460) 120 mg/dL CHOLESTEROL (BEAKER) (test cjhi=992) 192 mg/dL HDL CHOLESTEROL (BEAKER) (test gabl=224) 40 mg/dL LDL CHOLESTEROL CALCULATED (BEAKER) (test 128 mg/dL yvqw=434) Triglyceride Reference Range: Low Risk <150 Borderline 150- 199 High Risk 200-499 Very High Risk >=500Cholesterol Reference Range: Low Risk <200 Borderline 200-239 High Risk > 240HDL Cholesterol Reference Range: Low Risk >=60 High Risk <40LDL Cholesterol Reference Range: Optimal <100 Near Optimal 100-129 Borderline 130-159 High 160-189 Very High >=190 FastingCBC W/PLT COUNT & AUTO [id number] 00:57:00 Test Item Value Reference Range Comments WHITE BLOOD CELL COUNT (BEAKER) (test agmx=377) 16.0 K/ L 3.5-10.5 RED BLOOD CELL COUNT (BEAKER) (test zcjg=687) 3.87 M/ L 4.63-6.08 HEMOGLOBIN (BEAKER) (test yukp=251) 12.3 GM/DL 13.7-17.5 HEMATOCRIT (BEAKER) (test lgor=000) 36.4 % 40.1-51.0 MEAN CORPUSCULAR VOLUME (BEAKER) (test luoc=639) 94.1 fL 79.0-92.2 MEAN CORPUSCULAR HEMOGLOBIN (BEAKER) (test 31.8 pg 25.7-32.2 ebdq=069) MEAN CORPUSCULAR HEMOGLOBIN CONC (BEAKER) (test 33.8 GM/DL 32.3-36.5 xzqc=229) RED CELL DISTRIBUTION WIDTH (BEAKER) (test 13.8 % 11.6-14.4 vvrq=710) PLATELET COUNT (BEAKER) (test qcuu=349) 226 K/CU MM 150-450 MEAN PLATELET VOLUME (BEAKER) (test offp=617) 9.9 fL 9.4-12.4 NUCLEATED RED BLOOD CELLS (BEAKER) (test 0 /100 WBC 0-0 hppg=229) NEUTROPHILS RELATIVE PERCENT (BEAKER) (test 84 % ekny=075) LYMPHOCYTES RELATIVE PERCENT (BEAKER) (test 8 % ipri=130) MONOCYTES RELATIVE PERCENT (BEAKER) (test 7 % ddyf=907) EOSINOPHILS RELATIVE PERCENT (BEAKER) (test 0 % kwud=636) BASOPHILS RELATIVE PERCENT (BEAKER) (test 0 % npmz=907) NEUTROPHILS ABSOLUTE COUNT (BEAKER) (test 13.43 K/ L 1.78-5.38 kbcr=556) LYMPHOCYTES ABSOLUTE COUNT (BEAKER) (test 1.34 K/ L 1.32-3.57 huvw=005) MONOCYTES ABSOLUTE COUNT (BEAKER) (test 1.13 K/ L 0.30-0.82 cqas=908) EOSINOPHILS ABSOLUTE COUNT (BEAKER) (test 0.00 K/ L 0.04-0.54 rgxy=860) BASOPHILS ABSOLUTE COUNT (BEAKER) (test 0.03 K/ L 0.01-0.08 osnv=938) IMMATURE GRANULOCYTES-RELATIVE PERCENT (BEAKER) 0 % 0-1 (test fejt=6257) MR, SPINE, CERVICAL, WITHOUT [id number] 18:12:00FINAL REPORT MRI cervical spine without contrast [...] Lavelle Davidson Verified Date/Time: 18:12:30 Reading [facility] RadiologyReading [facility] TROPONIN [id number] 16:21:00 Test Item Value Reference Range Comments TROPONIN I (BEAKER) (test cqno=901) 137.89 ng/mL 0.00-0.03 B-TYPE NATRIURETIC FACTOR (BNP)2018-03-12 16:01:00 Test Item Value Reference Range Comments B-TYPE NATRIURETIC PEPTIDE (BEAKER) (test vvji=878) 30 pg/mL 0-100 CBC W/PLT COUNT & AUTO [id number] 15:43:00 Test Item Value Reference Range Comments WHITE BLOOD CELL COUNT (BEAKER) (test puqp=881) 16.4 K/ L 3.5-10.5 RED BLOOD CELL COUNT (BEAKER) (test mogm=541) 4.19 M/ L 4.63-6.08 HEMOGLOBIN (BEAKER) (test hfww=862) 13.2 GM/DL 13.7-17.5 HEMATOCRIT (BEAKER) (test qcfj=715) 39.3 % 40.1-51.0 MEAN CORPUSCULAR VOLUME (BEAKER) (test jdeb=593) 93.8 fL 79.0-92.2 MEAN CORPUSCULAR HEMOGLOBIN (BEAKER) (test 31.5 pg 25.7-32.2 rfom=701) MEAN CORPUSCULAR HEMOGLOBIN CONC (BEAKER) (test 33.6 GM/DL 32.3-36.5 pytj=906) RED CELL DISTRIBUTION WIDTH (BEAKER) (test 13.7 % 11.6-14.4 mzdl=354) PLATELET COUNT (BEAKER) (test vmko=498) 268 K/CU MM 150-450 MEAN PLATELET VOLUME (BEAKER) (test llzy=275) 10.9 fL 9.4-12.4 NUCLEATED RED BLOOD CELLS (BEAKER) (test 0 /100 WBC 0-0 npmi=347) NEUTROPHILS RELATIVE PERCENT (BEAKER) (test 80 % aqux=204) LYMPHOCYTES RELATIVE PERCENT (BEAKER) (test 12 % wken=673) MONOCYTES RELATIVE PERCENT (BEAKER) (test 7 % dtty=059) EOSINOPHILS RELATIVE PERCENT (BEAKER) (test 0 % jchx=809) BASOPHILS RELATIVE PERCENT (BEAKER) (test 0 % jpfa=202) NEUTROPHILS ABSOLUTE COUNT (BEAKER) (test 13.16 K/ L 1.78-5.38 dxpw=657) LYMPHOCYTES ABSOLUTE COUNT (BEAKER) (test 2.03 K/ L 1.32-3.57 zira=036) MONOCYTES ABSOLUTE COUNT (BEAKER) (test 1.11 K/ L 0.30-0.82 ddkk=953) EOSINOPHILS ABSOLUTE COUNT (BEAKER) (test 0.00 K/ L 0.04-0.54 tvii=455) BASOPHILS ABSOLUTE COUNT (BEAKER) (test 0.02 K/ L 0.01-0.08 ttut=704) IMMATURE GRANULOCYTES-RELATIVE PERCENT (BEAKER) 1 % 0-1 (test fnsz=9732) [id number] 15:12:00 Test Item Value Reference Range Comments ACTIVATED CLOTTING TIME 241 sec TESTED AT [facility] [address] (BEAKER) (test tyiy=756) [place] [address] [id number] 15:12:00 Test Item Value Reference Range Comments ACTIVATED CLOTTING TIME 230 sec TESTED AT [facility] [address] (BEAKER) (test zlkt=950) [place] [address] [id number] 13:09:00 Test Item Value Reference Range Comments ACTIVATED CLOTTING TIME 224 sec TESTED AT [facility] [address] (BEAKER) (test okmm=797) [place] [address]
[2018-04-30] MEDS ORDERED: NA CHLORIDE 0.9% 2,000 ML ONE (19:12)
[2018-04-30 19:17] LABS: Absolute Lymphocytes (CBC) 1.8 K/uL (0.7-4.9); Absolute Monocytes 0.8 K/uL (0.1-1.3); Absolute Neutrophil 3.7 K/uL (1.8-8.0); Basophils % 1.3 % (0-1.3); Eosinophils % 4.2 % (0-4.4); Hematocrit 46.4 % (39.6-49.0); Lymphocytes % 27.4 % (15.3-44.8); MPV 7.7 fL (7.6-11.3); Monocytes % 11.4 % (3.3-12.3); RBC Red Blood Cell Count 4.89 M/uL (4.33-5.43)
[2018-04-30 19:20] LABS: Urine Blood 2+ (NEG); Urine Glucose NEGATIVE (NEG); Urine Protein NEGATIVE (NEG)
[2018-04-30 19:26] LABS: Urine Bacteria NONE SEEN /HPF (NONE SEEN); Urine Culture Reflex Order NOT NEEDED
[2018-04-30 19:35] LABS: Albumin 3.6 g/dL (3.4-5.0); Bilirubin Direct 0.1 mg/dL (0-0.2); Bilirubin Total 0.4 mg/dL (0.2-1.0); Potassium 4.2 mmol/L (3.5-5.1); Protein, Total 7.4 g/dL (6.4-8.2)
--- NOTE | 2018-04-30 21:33 | RAD REPORT ---
EXAM DESCRIPTION: CTAbdomen Pelvis W Contrast - 04/30/2018 9:04 pm CLINICAL HISTORY: Abdominal pain. lower abdomen pain COMPARISON: CT ABD PELVIS W WO CONTRAST dated 05/21/2012; CT-STONE PROTOCOL dated 05/23/2007 TECHNIQUE: Biphasic CT imaging of the abdomen and pelvis was performed with 100 ml non-ionic IV cont rast. All CT scans are performed using dose optimization technique as appropriate and may include automated exposure control or mA/KV adjustment according to patient size. FINDINGS: Area of atelectasis is seen in the posterior left lung base. The liver, spleen, pancreas, adrenal glands are within normal limits. Punctate calculus is present in the mid pole left kidney without hydronephrosis. 12 mm complex cyst is again noted posterior right k idney. No bowel obstruction, free air, free fluid or abscess. The appendix is not identified as a discrete structure, however, no secondary findings of appendicitis are identified. No evidence of significan t lymphadenopathy. Moderate fecal retention in the colon. Lumbosacral degenerative changes are present. IMPRESSION: Moderate fecal retention is seen in the colon. Diverticulosis is present. The appendix is not identified as a discrete structure, however, no secondary findings of appendiciti s are identified.
--- NOTE | 2018-04-30 21:58 | ER ---
Nurse's Notes [facility] Name: Anthony Moya Age: 68 yrs Sex: Male : 1950 Arrival Date: 04/30/2018 Time: 17:09 Bed 30 Private MD: Darius Wilson B Diagnosis: Lower abdominal pain, unspecified;Constipation, unspecified Presentation: 04/30 17:12 Presenting complaint: Patient states: i was sent here from Urgent care; today i started hj having RLQ pain, pain is more on the R groin area; U/A was neg per urgent care; denies fever and chills; pain is 2/10; reports urinary frequency;. Transition of care: patient was not received from another setting of care. Onset of symptoms was April 30, 2018. Risk Assessment: Do you want to hurt yourself or someone else? Patient reports no desire to harm self or others. Initial Sepsis Screen: Does the patient meet any 2 criteria? No. Patient's initial sepsis screen is negative. Does the patient have a suspected source of infection? No. Patient's initial sepsis screen is negative. Care prior to arrival: None. 17:12 Method Of Arrival: Ambulatory 17:12 Acuity: MARC 3 hj Triage Assessment: 17:16 General: Appears in no apparent distress. uncomfortable, Behavior is calm, cooperative, hj appropriate for age. Pain: Complains of pain in abdomen and pelvis. Historical: - Allergies: 17:15 No Known Allergies; hj - Home Meds: 17:15 aspirin 81 mg Oral TbEC [Active]; b12 [Active]; Cialis 5 mg Oral tab 1 tab once daily hj [Active]; Citracal Oral [Active]; Citracal + D Maximum 315-250 mg-unit Oral tab [Active]; clopidogrel 75 mg Oral tab 1 tab once daily [Active]; CoQ-10 100 mg Oral cap [Active]; d3 [Active]; Dexilant 60 mg Oral CpDB 1 cap once daily [Active]; Dexilant 60 mg Oral CpDB 1 cap once daily [Active]; fenofibric acid 105 mg Oral tab 1 tab once daily [Active]; flaxseed oil Oral [Active]; Flaxseed oil [Active]; gabapentin Oral [Active]; magnesium oxide 400 mg Oral tab [Active]; rosuvastatin 10 mg Oral tab 1 tab once daily [Active]; Zetia 10 mg Oral tab 1 tab once daily [Active]; - PMHx: 17:15 Hyperlipidemia; Myocardial infarction; hj - PSHx: 17:15 Heart stents; hj - Immunization history:: Adult Immunizations up to date. - Social history:: Smoking status: Patient/guardian denies using tobacco, Patient/guardian denies using alcohol. - Ebola Screening: : Patient negative for fever greater than or equal to 101.5 degrees Fahrenheit, and additional compatible Ebola Virus Disease symptoms Patient denies exposure to infectious person Patient denies travel to an Ebola-affected area in the 21 days before illness onset. Screenin:16 Abuse screen: Denies threats or abuse. Denies injuries from another. Nutritional hj screening: No deficits noted. Tuberculosis screening: No symptoms or risk factors identified. Fall Risk None identified. Assessment: 19:11 General: Appears in no apparent distress. comfortable, slender, well groomed, well tl3 developed, well nourished, Behavior is calm, cooperative, appropriate for age. Pain: Complains of pain in pelvis and abdomen. Neuro: Level of Consciousness is awake, alert, obeys commands, Oriented to person, place, time, situation, Appropriate for age. Cardiovascular: Patient's skin is warm and dry. Respiratory: Airway is patent Respiratory effort is even, unlabored, Respiratory pattern is regular, symmetrical. GI: No deficits noted. No signs and/or symptoms were reported involving the gastrointestinal system. : Urine is clear, Reports pain in lower abdomen. EENT: No deficits noted. No signs and/or symptoms were reported regarding the EENT system. Derm: No deficits noted. No signs and/or symptoms reported regarding the dermatologic system. 19:19 Reassessment: oral contrast completed CT notified. tl3 20:55 Reassessment: Patient appears in no apparent distress at this time. No changes from tl3 previously documented assessment. Patient and/or family updated on plan of care and expected duration. Pain level reassessed. Patient is alert, oriented x 3, equal unlabored respirations, skin warm/dry/pink. pt being transported to CT. 22:21 Reassessment: Patient appears in no apparent distress at this time. No changes from tl3 previously documented assessment. Patient and/or family updated on plan of care and expected duration. Pain level reassessed. Patient is alert, oriented x 3, equal unlabored respirations, skin warm/dry/pink. pt in no distress, discussed discharge instructions. Vital Signs: 17:16 BP 131 / 82; Pulse 74; Resp 18; Temp 99.2(O); Pulse Ox 99% on R/A; Weight 83.91 kg; hj Height 5 ft. 9 in. (175.26 cm); Pain 2/10; 19:11 BP 162 / 90; Pulse 61; Resp 18; Pulse Ox 98% ; tl3 20:55 BP 152 / 89; Pulse 67; Resp 18; Pulse Ox 95% ; tl3 22:21 BP 148 / 83; Pulse 68; Resp 18; Pulse Ox 98% on R/A; tl3 17:16 Body Mass Index 27.32 (83.91 kg, 175.26 cm) hj ED Course: 17:09 Patient arrived in ED. mr 17:10 Darius Wilson MD is Private Physician. mr 17:14 Triage completed. hj 17:16 Arm band placed on left wrist. hj 17:16 Patient has correct armband on for positive identification. Placed in gown. Bed in low hj position. Call light in reach. Side rails up X 1. 18:38 Percy Rodriguez PA is PHCP. cp 18:38 Andry Lua MD is Attending Physician. cp 18:48 Toña Trejo, TRU is Primary Nurse. tl3 19:11 No provider procedures requiring assistance completed. Initial lab(s) drawn, by ED tl3 staff, sent to lab. Urine collected: clean catch specimen, clear, Amount Voided: 40mL Bladder scan completed. 0ml preurination. Inserted saline lock: 20 gauge in left antecubital area, using aseptic technique. Blood collected. 21:04 CT Abd/Pelvis - W/Contrast: give oral contrast In Process Unspecified. EDMS 22:29 IV discontinued, intact, bleeding controlled, No redness/swelling at site. Pressure tl3 dressing applied. Administered Medications: 19:18 Drug: NS 0.9% 500 ml Route: IV; Rate: bolus; Site: left antecubital; Delivery: Primary tl3 tubing; 19:59 Follow up: IV Status: Completed infusion; IV Intake: 500ml tl3 20:00 Drug: NS 0.9% 1000 ml Route: IV; Rate: 100 ml/hr; Site: left antecubital; Delivery: tl3 Primary tubing; 22:23 Follow up: IV Status: Completed infusion; IV Intake: 250ml tl3 Intake: 19:59 IV: 500ml; Total: 500ml. tl3 22:23 IV: 250ml; Total: 750ml. tl3 Outcome: 21:58 Discharge ordered by MD. cp 22:29 Discharged to home ambulatory. tl3 22:29 Condition: stable 22:29 Discharge instructions given to patient, family, Instructed on discharge instructions, follow up and referral plans. medication usage, Demonstrated understanding of instructions, follow-up care, medications, Prescriptions given X 1. 22:30 Patient left the ED. tl3 Signatures: Dispatcher [employer] MARTI ArunAlyssa AshokSigifredo, RN RN Percy Lee PA PA cp Jordan, Nathan nj Lowrey, Tammy, RN RN tl3 Corrections: (The following items were deleted from the chart) 17:18 17:16 Pulse 74bpm; Resp 18bpm; Pulse Ox 99% RA; Temp 99.2F Oral; 83.91 kg; Height 5 ft. hj 9 in.; BMI: 27.3; Pain 2/10; hj 17:19 17:16 Pulse 74bpm; Resp 18bpm; Pulse Ox 99% RA; Temp 99.2F Oral; 83.91 kg; Height 5 ft. hj 9 in.; BMI: 27.3; Pain 2/10; hj 19:12 19:09 Patient moved to MD via stretcher. ruiz melchor
--- NOTE | 2018-04-30 21:58 | EDPHYS ---
Physician Documentation [facility] Name: Anthony Moya Age: 68 yrs Sex: Male : 1950 Arrival Date: 04/30/2018 Time: 17:09 Bed 30 Private MD: Darius Wilson B ED Physician Andry Lua HPI: 04/30 18:45 This 68 yrs old Male presents to ER via Ambulatory with complaints of Urinary cp Problem, RLQ Pain. 18:45 The patient presents with abdominal pain in the lower abdomen. cp 18:45 Onset: The symptoms/episode began/occurred this morning. The symptoms do not radiate. cp Associated signs and symptoms: Pertinent positives: urinary urgency, Pertinent negatives: blood in stools, constipation, diarrhea, fever, vomiting. The patient has been recently seen at an urgent care, for similar complaints, and was sent to the [facility] Emergency Department for further evaluation, to r/o appendicitis. Historical: - Allergies: 17:15 No Known Allergies; hj - Home Meds: 17:15 aspirin 81 mg Oral TbEC [Active]; b12 [Active]; Cialis 5 mg Oral tab 1 tab once daily hj [Active]; Citracal Oral [Active]; Citracal + D Maximum 315-250 mg-unit Oral tab [Active]; clopidogrel 75 mg Oral tab 1 tab once daily [Active]; CoQ-10 100 mg Oral cap [Active]; d3 [Active]; Dexilant 60 mg Oral CpDB 1 cap once daily [Active]; Dexilant 60 mg Oral CpDB 1 cap once daily [Active]; fenofibric acid 105 mg Oral tab 1 tab once daily [Active]; flaxseed oil Oral [Active]; Flaxseed oil [Active]; gabapentin Oral [Active]; magnesium oxide 400 mg Oral tab [Active]; rosuvastatin 10 mg Oral tab 1 tab once daily [Active]; Zetia 10 mg Oral tab 1 tab once daily [Active]; - PMHx: 17:15 Hyperlipidemia; Myocardial infarction; hj - PSHx: 17:15 Heart stents; hj - Immunization history:: Adult Immunizations up to date. - Social history:: Smoking status: Patient/guardian denies using tobacco, Patient/guardian denies using alcohol. - Ebola Screening: : Patient negative for fever greater than or equal to 101.5 degrees Fahrenheit, and additional compatible Ebola Virus Disease symptoms Patient denies exposure to infectious person Patient denies travel to an Ebola-affected area in the 21 days before illness onset. ROS: 18:50 Constitutional: Negative for body aches, chills, fever, poor PO intake. cp 18:50 Eyes: Negative for injury, pain, redness, and discharge. cp 18:50 ENT: Negative for drainage from ear(s), ear pain, sore throat, difficulty swallowing, difficulty handling secretions. 18:50 Cardiovascular: Negative for chest pain, edema, palpitations. 18:50 Respiratory: Negative for cough, shortness of breath, wheezing. 18:50 Abdomen/GI: Positive for abdominal pain, of the lower abdomen and groin, Negative for nausea, vomiting, and diarrhea, constipation, black/tarry stool, rectal bleeding. 18:50 Back: Negative for pain at rest, pain with movement, radiated pain. 18:50 : Positive for urinary urgency, Negative for burning with urination, difficulty urinating. 18:50 Skin: Negative for cellulitis, rash. 18:50 Neuro: Negative for altered mental status, dizziness, headache, syncope, near syncope, weakness. 18:50 All other systems are negative. Exam: 18:55 Constitutional: The patient appears in no acute distress, alert, awake, non-toxic, well cp developed, well nourished. 18:55 Head/Face: Normocephalic, atraumatic. cp 18:55 Eyes: Periorbital structures: appear normal, Conjunctiva: normal, no exudate, no injection, Sclera: no appreciated abnormality, Lids and lashes: appear normal, bilaterally. 18:55 ENT: External ear(s): are unremarkable, Nose: is normal, Mouth: Lips: moist, Oral mucosa: pink and intact, moist, Posterior pharynx: is normal, airway is patent, no erythema, no exudate. 18:55 Neck: ROM/movement: is normal, is supple, without pain, no range of motions limitations, no meningismus, no nuchal rigidity. 18:55 Chest/axilla: Inspection: normal, Palpation: is normal, no crepitus, no tenderness. 18:55 Cardiovascular: Rate: normal, Rhythm: regular. 18:55 Respiratory: the patient does not display signs of respiratory distress, Respirations: normal, no use of accessory muscles, no retractions, no splinting, no tachypnea, labored breathing, is not present, Breath sounds: are clear throughout, no decreased breath sounds, no stridor, no wheezing. 18:55 Abdomen/GI: Inspection: abdomen appears normal, Bowel sounds: active, all quadrants, Palpation: soft, in all quadrants, mild abdominal tenderness, in the suprapubic area and right lower quadrant, rebound tenderness, is not appreciated, involuntary guarding, is not appreciated. 18:55 Back: pain, is absent, ROM is normal, CVA tenderness, is absent. 18:55 Skin: cellulitis, is not appreciated, no rash present. 18:55 Neuro: Orientation: to person, place \T\ time. Mentation: is normal, Cerebellar function: is grossly normal, Motor: moves all fours, strength is normal, Sensation: is normal, Gait: is steady. Vital Signs: 17:16 BP 131 / 82; Pulse 74; Resp 18; Temp 99.2(O); Pulse Ox 99% on R/A; Weight 83.91 kg; hj Height 5 ft. 9 in. (175.26 cm); Pain 2/10; 19:11 BP 162 / 90; Pulse 61; Resp 18; Pulse Ox 98% ; tl3 20:55 BP 152 / 89; Pulse 67; Resp 18; Pulse Ox 95% ; tl3 22:21 BP 148 / 83; Pulse 68; Resp 18; Pulse Ox 98% on R/A; tl3 17:16 Body Mass Index 27.32 (83.91 kg, 175.26 cm) MDM: 18:38 Patient medically screened. cp 19:00 Differential diagnosis: appendicitis, diverticulitis, gastritis, Prostatitis, cp Ureterolithiasis, urinary tract infection. 21:50 ED course: VSS. Discussed results of labs and CT abdomen/pelvis that did not image cp appendix and was negative for secondary signs of appendicitis. Patient reports pain has not worsened. Patient declines admittance for observation and request discharge to home and will return if pain or symptoms worsen. 21:57 Data reviewed: vital signs, nurses notes, lab test result(s), radiologic studies, CT cp scan. 21:57 Response to treatment: the patient's symptoms have markedly improved after treatment, cp and as a result, I will discharge patient. Special discussion: Based on the patient's Hx, exam, and Dx evaluation, there is no indication for emergent surgery or inpatient Tx. It is understood by the patient/guardian that if the Sx's persist or worsen they need to return immediately for re-evaluation. 04/30 18:39 Order name: Urine Microscopic Only; Complete Time: 19:39 cp 04/30 19:39 Interpretation: Normal except: URBC 5-10. cp 04/30 18:52 Order name: Basic Metabolic Panel; Complete Time: 19:39 cp 04/30 21:42 Interpretation: Normal except: GFR 73. cp 04/30 18:52 Order name: CBC with Diff; Complete Time: 19:39 cp 04/30 19:40 Interpretation: Reviewed. cp 04/30 18:52 Order name: Creatinine for Radiology; Complete Time: 19:39 cp 04/30 18:52 Order name: Hepatic Function; Complete Time: 19:39 cp 04/30 18:52 Order name: Lipase; Complete Time: 19:39 cp 04/30 18:39 Order name: Urine Dipstick-Ancillary (obtain specimen); Complete Time: 19:09 cp 04/30 18:52 Order name: Bladder Scanner: pre and post void; Complete Time: 19:01 cp 04/30 18:52 Order name: IV Saline Lock; Complete Time: 19:01 cp 04/30 18:52 Order name: Labs collected and sent; Complete Time: 19:01 cp 04/30 18:52 Order name: CT Abd/Pelvis - W/Contrast: give oral contrast; Complete Time: 21:41 cp 04/30 19:11 Order name: Urine Dipstick--Ancillary (enter results); Complete Time: 19:39 em1 Administered Medications: 19:18 Drug: NS 0.9% 500 ml Route: IV; Rate: bolus; Site: left antecubital; Delivery: Primary tl3 tubing; 19:59 Follow up: IV Status: Completed infusion; IV Intake: 500ml tl3 20:00 Drug: NS 0.9% 1000 ml Route: IV; Rate: 100 ml/hr; Site: left antecubital; Delivery: tl3 Primary tubing; 22:23 Follow up: IV Status: Completed infusion; IV Intake: 250ml tl3 Disposition: 04/30/18 21:58 Discharged to Home. Impression: Lower abdominal pain, unspecified, Constipation, unspecified. - Condition is Stable. - Discharge Instructions: Abdominal Pain, Adult, Constipation, Adult, High-Fiber Diet. - Prescriptions for Miralax 17 gram/dose Oral - take 1 packet by ORAL route once daily dilute powder in 8 ounces of water or juice; 20 packet. - Medication Reconciliation Form, Thank You Letter, Antibiotic Education, Prescription Opioid Use form. - Follow up: Emergency Department; When: As needed; Reason: Worsening of condition. - Problem is new. - Symptoms have improved. Signatures: Dispatcher [employer] EDMS Sigifredo Pulido RN RN Percy Rodriguez PA PA cp Toña Trejo, RN RN tl3 Corrections: (The following items were deleted from the chart) 22:30 21:58 04/30/2018 21:58 Discharged to Home. Impression: Lower abdominal pain, tl3 unspecified; Constipation, unspecified. Condition is Stable. Forms are Medication Reconciliation Form, Thank You Letter, Antibiotic Education, Prescription Opioid Use. Follow up: Emergency Department; When: As needed; Reason: Worsening of condition. Problem is new. Symptoms have improved. cp
[2018-04-30 22:35] VITALS: TEMP 99.2
[2018-04-30 22:39] VITALS: BP 148/83; O2SAT 98
== END 2018-04-30 22:30 | disposition home or self-care (01) ==
LOC: ER 17:05
DX: R10.31 Right lower quadrant pain (principal); E78.5 Hyperlipidemia, unspecified; I25.2 Old myocardial infarction; Z79.82 Long term (current) use of aspirin
CPT/HCPCS: 36415; 74177; 80048; 80076; 83690; 85025; 96360; 96361; 99284; J7030; Q9967; 81003; 81015

== ENCOUNTER 2023-08-12 16:25 | Emergency (ER) | payer OTHER ==
--- NOTE | 2023-08-12 17:02 | RAD REPORT ---
EXAM DESCRIPTION: RAD - Hand Left 3 View - 08/12/2023 4:51 pm CLINICAL HISTORY: L 4th [facility] injury COMPARISON: No comparisons FINDINGS: No fracture or dislocation seen.
--- NOTE | 2023-08-12 17:04 | ER ---
Nurse's Notes [facility] Name: Anthony Moya Age: 73 yrs Sex: Male : 1950 Arrival Date: 08/12/2023 Time: 16:25 Bed 10 Private MD: Diagnosis: Pain in left hand Presentation: 08/11 16:32 Chief complaint: Patient states: carrying a heavy chain yesterday and it shifted, ko1 thought he had popped a blood vessel but is having occasional sharp pains today. Coronavirus screen: At this time, the client does not indicate any symptoms associated with coronavirus-19. Ebola Screen: No symptoms or risks identified at this time. Initial Sepsis Screen: Does the patient meet any 2 criteria? No. Patient's initial sepsis screen is negative. Does the patient have a suspected source of infection? No. Patient's initial sepsis screen is negative. Risk Assessment: Do you want to hurt yourself or someone else? Patient reports no desire to harm self or others. Onset of symptoms was August 12, 2023. 16:32 Method Of Arrival: Ambulatory ko1 16:32 Acuity: MARC 4 ko1 Triage Assessment: 16:37 General: Appears in no apparent distress. Behavior is calm, cooperative, appropriate ko1 for age. Pain: Complains of pain in dorsal aspect of proximal phalanx of left ring finger. Musculoskeletal: Reports pain in left hand. Injury Description: Bruise sustained to left hand is purple, was sustained 1 day ago. Historical: - Allergies: 16:37 No Known Allergies; ko1 - Home Meds: 16:37 clopidogrel 75 mg Oral tab 1 tab once daily [Active]; ko1 - PMHx: 16:37 Hyperlipidemia; Myocardial infarction; ko1 - PSHx: 16:37 Stented artery; ko1 - Immunization history:: Adult Immunizations up to date. - Infectious Disease History:: Denies. - Social history:: Smoking status: Patient denies any tobacco usage or history of. Screenin:13 [facility] ED Fall Risk Assessment (Adult) History of falling in the last 3 months, as6 including since admission No falls in past 3 months (0 pts) Confusion or Disorientation No (0 pts) Intoxicated or Sedated No (0 pts) Impaired Gait No (0 pts) Mobility Assist Device Used No (0 pt) Altered Elimination No (0 pt) Score/Fall Risk Level 0 - 2 = Low Risk Oriented to surroundings, Maintained a safe environment, Educated pt \T\ family on fall prevention, incl call for assistance when getting out of bed, Assessed \T\ reinforced patient's understanding of fall precautions. Abuse screen: Denies threats or abuse. Denies injuries from another. Nutritional screening: No deficits noted. Tuberculosis screening: No symptoms or risk factors identified. Assessment: 17:13 Reassessment: Patient appears in no apparent distress at this time. Patient and/or as6 family updated on plan of care and expected duration. Pain level reassessed. Patient is alert, oriented x 3, equal unlabored respirations, skin warm/dry/pink. Vital Signs: 16:32 BP 129 / 80; Pulse 67; Resp 16; Temp 97.4; Pulse Ox 99% ; ko1 ED Course: 16:27 Patient arrived in ED. im 16:28 Parviz Escudero MD is Attending Physician. ec2 16:37 Triage completed. ko1 16:37 Arm band placed on right wrist. Patient placed in an exam room, on a stretcher, on ko1 pulse oximetry, Patient notified of wait time. 16:39 Segundo Oden, RN is Primary Nurse. as6 16:53 Hand Left 3 View XRAY In Process Unspecified. EDMS 17:13 Bed in low position. Call light in reach. Provided Education on: follow up. as6 17:13 No provider procedures requiring assistance completed. Patient did not have IV access as6 during this emergency room visit. Administered Medications: No medications were administered Medication: 17:14 VIS not applicable for this client. as6 Outcome: 17:04 Discharge ordered by . ec2 17:13 Discharged to home ambulatory, as6 17:13 Condition: stable 17:13 Discharge instructions given to patient, Instructed on discharge instructions, follow up and referral plans. Demonstrated understanding of instructions, follow-up care, 17:14 Patient left the ED. as6 Signatures: Dispatcher [employer] Segundo Giles, RN RN as6 Elo Lynn RN RN ko1 More Watters Parviz Escudero MD MD ec2
--- NOTE | 2023-08-12 17:04 | EDPHYS ---
Physician Documentation [facility] Name: Anthony Moya Age: 73 yrs Sex: Male : 1950 Arrival Date: 08/12/2023 Time: 16:25 Bed 10 Private MD: ED Physician Parviz Escudero HPI: 08/11 16:34 This 73 yrs old Male presents to ER via Unassigned with complaints of Hand ec2 Injury - left. 16:34 Patient arrives today for evaluation of a left hand injury. Patient complaining of ec2 right hand pain and left hand. States that he was carrying a chain subsequently feels like he injured it. No falls injuries or trauma, denies any significant injury however has noted some swelling and tenderness.. Historical: - Allergies: 16:37 No Known Allergies; ko1 - Home Meds: 16:37 clopidogrel 75 mg Oral tab 1 tab once daily [Active]; ko1 - PMHx: 16:37 Hyperlipidemia; Myocardial infarction; ko1 - PSHx: 16:37 Stented artery; ko1 - Immunization history:: Adult Immunizations up to date. - Infectious Disease History:: Denies. - Social history:: Smoking status: Patient denies any tobacco usage or history of. ROS: 16:34 Constitutional: as per hpi ec2 Exam: 16:34 Constitutional: GEN: NAD Head: atraumatic Eyes: EOMI Ears: External ears are ec2 normal. CV: regular rate LUNGS: no respiratory distress ABD: non-distended SKIN: no evidence of rashes MSK: TTP to the left fourth metacarpal bone, good range of motion distally, mild amount of swelling NEURO: moves all extremities equally Vital Signs: 16:32 BP 129 / 80; Pulse 67; Resp 16; Temp 97.4; Pulse Ox 99% ; ko1 MDM: 16:34 Patient medically screened. ec2 16:34 Data reviewed: vital signs. ED course: Patient arrives today for evaluation of left ec2 hand pain. Examination remarkable for MSK findings as above. Will obtain radiograph of the left hand. Evaluate for bony fracture, soft tissue contusion.. 17:04 ED course: Hand x-ray independently reviewed and interpreted by me, shows no bony ec2 fracture. Presentation consistent with contusion. Will discharge home. Return precautions given. 08/11 16:34 Order name: Hand Left 3 View XRAY; Complete Time: 17:04 ec2 Administered Medications: No medications were administered Disposition Summary: 08/12/23 17:04 Discharge Ordered Notes: Location: Home ec2 Condition: Stable ec2 Diagnosis - Pain in left hand ec2 Followup: ec2 - With: Private Physician - When: - Reason: Re-evaluation by your physician Discharge Instructions: - Discharge Summary Sheet ec2 - Musculoskeletal Pain ec2 - Hand Exercises ec2 Forms: - Medication Reconciliation Form ec2 - Thank You Letter ec2 - Antibiotic Education ec2 - Prescription Opioid Use ec2 - Patient Portal Instructions ec2 - Leadership Thank You Letter ec2 Signatures: Dispatcher [employer] Elo Chow RN RN ko1 Parviz Escudero MD MD ec2
[2023-08-13 01:21] VITALS: BP 129/80; TEMP 97.4; O2SAT 99
== END 2023-08-12 17:14 | disposition home or self-care (01) ==
LOC: ER 16:25
DX: M79.642 Pain in left hand (principal)